=== PATIENT | female | born 1945 | race Caucasian/White ===

== ENCOUNTER 2016-02-20 23:04 | Inpatient (IN) | payer MEDICARE, BC ==
[2016-02-21] MEDS ORDERED: NS 0.9% 1000 ML* 1,000 ML IV ONE (00:06)
--- NOTE | 2016-02-21 00:32 | ED ---
Sidney Farley Erika, scribed for Meño Flores MD on 02/21/16 at 0016 . Complex/Multi-Sys Presentation - HPI Summary HPI Summary: Patient is a 70-year-old female presenting to the ED with a CC of low body temperature today. At 11:30 today, pt had a temperature of 96.2, and family believes it is now lower. They state pt has AMS which worsened this evening. They report that pt dropped a glass of water while trying to set it on the table. Family also reports that pt has had increased urinary frequency today. - History Of Current Complaint Chief Complaint: EDGeneral Time Seen by Provider: 02/21/16 00:00 Hx Obtained From: Patient, Family/Visual C Developer Onset/Duration: Gradual Onset, Lasting Hours, Worse Since Timing: Constant Severity Currently: Moderate Severity Initially: Mild Associated Signs And Symptoms: Positive: Other - Decreased temperature, urinary frequency, AMS - Allergies/Home Medications Allergies/Adverse Reactions: Allergies Allergy/AdvReac Type Severity Reaction Status Date / Time No Known Allergies Allergy Verified 01/28/16 15:11 PMH/Surg Hx/FS Hx/Imm Hx Endocrine/Hematology History: Reports: Hx Anticoagulant Therapy Cardiovascular History: Reports: Hx Hypertension Respiratory History: Reports: Hx Sleep Apnea - home BIPAP GI History: Reports: Other GI Disorders - distended rectum History: Reports: Other Problems/Disorders - urine retention- flomax , NEUROGENIC BLADDER Musculoskeletal History: Reports: Hx Back Problems - cervical neck surgery 2001 , Other Musculoskeletal History - MS Sensory History: Reports: Hx Contacts or Glasses - GLASSES Opthamlomology History: Reports: Hx Contacts or Glasses - GLASSES Neurological History: Reports: Other Neuro Impairments/Disorders - MULTIPLE SCLEROSIS dx 1975 Psychiatric History: Reports: Hx Anxiety, Hx Depression - Cancer History Hx Chemotherapy: No Hx Radiation Therapy: No Hx Palliative Cancer Treatment: No - Surgical History Surgery Procedure, Year, and Place: INGUINAL CYST REPAIR, cervical NECK SURGERY 2001. 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 Denies: Hx Clostridium Difficile, Hx Hepatitis, Hx Human Immunodeficiency Virus (HIV), Hx Shingles, Hx Tuberculosis, History Other Infectious Disease, Traveled Outside the [place] in Last 30 Days - Family History Known Family History: Positive: Cardiac Disease - CHF, CAD, Other - CVA - Social History Lives: With Family Alcohol Use: None Alcohol Amount: 1 drink Hx Substance Use: No Substance Use Type: Reports: None Hx Tobacco Use: No Smoking Status (MU): Never Smoked Tobacco Have You Smoked in the Last Year: No Review of Systems Constitutional: Other - Low body temperature Positive: frequency Neurological: Other - AMS All Other Systems Reviewed And Are Negative: Yes Physical Exam Triage Information Reviewed: Yes Vital Signs On Initial Exam: Initial Vitals Temp Pulse Resp BP Pulse Ox 95.2 F 46 18 109/83 100 02/20/16 23:09 02/20/16 23:09 02/20/16 23:09 02/20/16 23:09 02/20/16 23:09 Vital Signs Reviewed: Yes Appearance: Positive: No Pain Distress, Ill-Appearing Skin: Positive: Cold Head/Face: Positive: Normal Head/Face Inspection Eyes: Positive: ZAIN ENT: Positive: Pharynx normal Neck: Positive: Supple Respiratory/Lung Sounds: Positive: Breath Sounds Present Cardiovascular: Positive: Bradycardia Abdomen Description: Positive: Nontender, Soft Musculoskeletal: Positive: Strength/ROM Intact Neurological: Positive: Alert, Oriented to Person Place, Time Psychiatric: Positive: Affect/Mood Appropriate Diagnostics - Vital Signs Vital Signs Temp Pulse Resp BP Pulse Ox 02/20/16 23:09 95.2 F 46 18 109/83 100 - Laboratory Result Diagrams: 02/21/16 00:10 02/21/16 00:10 Lab Statement: Any lab studies that have been ordered have been reviewed, and results considered in the medical decision making process. - Radiology CXR Xray Interpretation: No Acute Changes Radiology Interpretation Completed By: ED Physician Re-Evaluation - Re-Evaluation First Eval Re-Evaluation Time: 04:34 Comment: Temperature still very low. Will admit Complex Multi-Symp Course/Dx Assessment/Plan: A 70 y/o F presents to the ED with a CC of hypothermia. Perez probe temperature initially noted at 91.0. Pt was placed in a Abner Hugger during the duration of observation, and temperature only parvin to 94.4 degrees rectal. UA reveals UTI, and pt was treated with levaquin. Care discussed with Dr. Kincaid, who will admit the patient for further work up and management. - Diagnoses Provider Diagnoses: UTI (urinary tract infection), Severe sepsis - Physician Notifications Discussed Care Of Patient With: Dr. Kincaid (hospitalist) at 04:33 - agrees to admit Instructed by Provider To: Admit As Inpatient - Critical Care Time Critical Care Time: 30-74 min Discharge - Discharge Plan Condition: Fair Disposition: ADMITTED TO [facility] The documentation as recorded by the Sidney bowles Erika accurately reflects the service I personally performed and the decisions made by me, Meño Flores MD.
[2016-02-21 00:33] LABS: Hematocrit 40 % (35-47); Hemoglobin 13.1 g/dl (12.0-16.0); Mean Corpuscular HGB Conc 33 g/dl (31-36); Mean Corpuscular Hemoglobin 32 pg (27-31); Mean Corpuscular Volume 98 fL (80-97); Mean Platelet Volume 9 um3 (7.4-10.4); Red Blood Count 4.08 10^6/ul (4.0-5.4); Red Cell Distribution Width 17 % (10.5-15); White Blood Count 6.2 10^3/ul (3.5-10.8)
[2016-02-21 00:50] LABS: Albumin 3.6 g/dL (3.2-5.2); BUN/Creatinine Ratio 24.2 (8-20); Calcium 9.6 mg/dL (8.6-10.3); EGFR African American 79.1 (>60); EGFR Non-African American 61.5 (>60); Globulin 3.1 g/dL (2-4); Potassium 4.4 mmol/L (3.5-5.0); Total Bilirubin 0.4 mg/dL (0.2-1.0); Total Protein 6.7 g/dL (6.4-8.9)
[2016-02-21 01:10] LABS: Urine Bacteria 1+ (Absent); Urine Bilirubin Negative (Negative); Urine Glucose Negative (Negative); Urine Nitrite Positive (Negative)
[2016-02-21] MEDS ORDERED: Levofloxacin 500 MG IVPREMIX(* 500 MG/100 ML BAG IVPB ONE (01:20)
[2016-02-21] MEDS ORDERED: Acetaminophen TAB* 325 MG PO PRN (04:56)
[2016-02-21] MEDS ORDERED: Ondansetron INJ* 2 MG/ML VIAL IV PRN (04:56)
[2016-02-21] MEDS ORDERED: Al Hydrox/Mg Hydrox/Simet LIQ* 30 ML UDC PO PRN (04:56)
[2016-02-21 05:29] LABS: TSH (Thyroid Stimulating Horm) 9.49 mcIU/mL (0.34-5.60)
[2016-02-21 05:36] LABS: Free T4 1.02 ng/dL (0.61-1.12)
[2016-02-21 06:44] LABS: C Reactive Protein 4.98 mg/L (< 5.00)
--- NOTE | 2016-02-21 07:23 | RAD ---
INDICATION: Fever COMPARISON: None TECHNIQUE: PA and lateral views of the chest were obtained. FINDINGS: The heart and mediastinum are normal in size and contour. The lungs are grossly clear. There is no evidence of large pleural effusion. Visualized bones are normal for the patient's age. Plate and screw fixator is partially visualized overlying the lower cervical spine. There is no radiographic evidence of free air beneath the diaphragm IMPRESSION: No radiographic evidence of acute cardiopulmonary disease.
--- NOTE | 2016-02-21 08:04 | HP ---
CC: Dr. Ellen Reynolds HISTORY AND PHYSICAL: DATE OF ADMISSION: 02/21/16 TIME OF EVALUATION: 0500. PRIMARY CARE PHYSICIAN: Dr. Ellen Reynolds CHIEF COMPLAINT: Hypothermia. HISTORY OF PRESENT ILLNESS: This is a 70-year-old female with past medical history of multiple sclerosis, recurrent urinary tract infections, atrial fibrillation who was recently discharged on 02/04/16 for pneumonia, now presenting today after [facility]NS came in to evaluate her and noticed that she had a low temperature. They recommended that she come to the emergency room for further evaluation. On arrival, the patient's temp was 95.2. They placed a Perez, and it was low as 91. They started putting her on Abner Huggers and warming her, and gave her a liter of fluid and 500 mg of Levaquin. On my encounter, the patient states that she is not feeling well. She has some right- sided abdominal discomfort, no nausea. She has had some diarrhea. She denies any choking episodes, no trouble breathing. No chest pain. No rash. No sick contacts. No headaches. The patient's history is limited due to her not feeling well at her last limited communication. She is being admitted for evaluation for her low temperature. PAST MEDICAL HISTORY: 1. Multiple sclerosis. 2. Neurogenic bladder. 3. Atrial fibrillation, on anticoagulation. 4. Recurrent urinary tract infections. 5. Obstructive sleep apnea. MEDICATIONS: The patient states they have been unchanged from her discharge on 02/04/16, and her discharge summary states as follows: 1. Ferrous sulfate 325 mg p.o. Friday, Friday, and Friday. 2. Glatiramer 20 mg subcu every evening. 3. Baclofen 45 mg p.o. b.i.d. 4. Hydrocortisone 2.5% cream b.i.d. as needed. 5. Multivitamin with minerals daily. 6. Calcium with vitamin D daily. 7. Ipratropium nasal spray b.i.d. 8. Rivaroxaban 20 mg p.o. daily. 9. Propafenone 150 mg every 8 hours. 10. Miconazole nitrate topical as needed. 11. Nystatin topical b.i.d. p.r.n. 12. Solifenacin 10 mg daily. 13. Atorvastatin 10 mg daily. 14. Clotrimazole with betamethasone b.i.d. as needed. 15. Tylenol suppository 1 g every 6 hours as needed. ALLERGIES: No known drug allergies. FAMILY HISTORY: Father from CHF. Mother from CVA. SOCIAL HISTORY: She lives with her , Shawn, who is her healthcare proxy. Her secondary proxy is her daughter, Gila Forrest. She has visiting nurses come in twice a week. She is wheelchair bound, nonambulatory, and DNR/DNI. REVIEW OF SYSTEMS: Limited, as mentioned in the HPI. PHYSICAL EXAMINATION GENERAL: Some mild discomfort. VITAL SIGNS: Temp low as 91, currently 94.4, pulse rate 54, respiratory rate 14 , oxygen saturation 97% on room air, blood pressure 118/53. HEENT: Face is flushed. Pupils are equal and reactive, anicteric. Head: Normocephalic, no nuchal rigidity. Oropharynx: Mucous membranes slightly dry. No erythema or exudate. RESPIRATORY: Diminished breath sounds. No wheeze, rhonchi, or rales. CARDIAC: Regular rate and rhythm. Soft systolic murmur heard throughout. ABDOMEN: Soft, nontender, nondistended. EXTREMITIES: VICKY stockings in place. Trace pedal edema. +1 DP. NEUROLOGIC: The patient with MS, diffuse weakness, limited mobility, alert and oriented x3. LABORATORY DATA: White count 6.2, hemoglobin 13.1, hematocrit 40, platelets 291. INR 1.44. Sodium 134, potassium 4.4, chloride 100, bicarb 30, BUN 22, creatinine 0.9. Urine shows positive nitrites, leukocytes, squamous cells. Chest x-ray is unremarkable. ASSESSMENT AND PLAN: This is a 70-year-old female with past medical history of multiple sclerosis, neurogenic bladder with recurrent UTIs who presents to the emergency room with a low temperature. 1. Hypothermia. Assessment: The patient has had hypothermia in the past secondary to UTIs. Her urine has been sensitive to ceftriaxone in the past. She does not have a white count. She is also complaining of some diarrhea; as this could be C. diff , also consider influenza. Plan: Admit her, continue on antibiotics; will switch her over to ceftriaxone as more compatible with her antiarrhythmic agent. Continue on IV fluids. Will check a flu swab and C. diff. We will also check a TSH and a cortisol level, and follow up on her cultures. Continue her on IV fluids. We will also check a CRP. 2. Chronic medical problems. Multiple sclerosis. Continue her Glatiramer, Baclofen. 3. Neurogenic bladder. Continue her VESIcare. 4. Atrial fibrillation. Continue propafenone, rivaroxaban. 5. Hyperlipidemia. Continue atorvastatin. 6. FEN. Allow for heart-healthy diet with IV fluids. 7. DVT prophylaxis. She scores high risk. She is on rivaroxaban. 8. Code status. She is a DNR/DNI. MOLST form is here in the emergency room. TIME SPENT: Greater than 30 minutes were spent doing the history and physical, more than half the time spent in direct patient contact. [id number]/CPS #: [id number] SUSAN
[2016-02-21] MEDS ORDERED: Glatiramer(NF) 20 MG/ML 1 ML SYRINGE SUBCUT SCH (09:00)
[2016-02-21] MEDS: Solifenacin(NF) 10 MG TAB PO SCH (09:15)
[2016-02-21] MEDS: Baclofen TAB* 10 MG PO SCH ×2 (09:16→21:07)
[2016-02-21] MEDS: proPAFENone TAB* 150 MG PO SCH ×3 (09:17→22:25)
[2016-02-21] MEDS: Senna TAB PO PRN (09:17)
[2016-02-21] MEDS: Docusate CAP* 100 MG PO PRN (09:17)
[2016-02-21 12:58] LABS: PCO2 Arterial 48 mmHg (35-45)
[2016-02-21] MEDS: Hydrocortisone INJ* 100 MG VIAL IV SCH ×2 (14:35→21:10)
--- NOTE | 2016-02-21 14:51 | PN ---
Subjective Date of Service: 02/21/16 Interval History: Patient seen and examined at bedside. Patient first seen in ED at 1230 and was noted to be lethargic. She required vigorous sternal rubbing in order to get her to open her eyes. ABG, labs drawn. Repeat assessment, patient is still very lethargic. VSS but she is not able to follow simple commands. ED Nurse reports patient was awake this morning and was able to take her medications prior to falling back asleep. notified of patient's condition over phone; he states that she does become more lethargic and less responsive when she has an infection. Family History: Unchanged from Admission Social History: Unchanged from Admission Past Medical History: Unchanged from Admission Objective Active Medications: Acetaminophen (Tylenol Tab*) 650 mg PO Q4H PRN PRN Reason: FEVER/PAIN Al Hydrox/Mg Hydrox/Simethicone (Maalox Plus*) 30 ml PO Q6H PRN PRN Reason: INDIGESTION Atorvastatin Calcium (Lipitor*) 10 mg PO 1700 [facility] Baclofen (Lioresal Tab*) 45 mg PO BID [facility] Last Admin: 02/21/16 09:16 Dose: 45 mg Docusate Sodium (Colace Cap*) 100 mg PO BID PRN PRN Reason: CONSTIPATION Last Admin: 02/21/16 09:17 Dose: 100 mg Glatiramer Acetate (Copaxone(Nf)) 20 mg SUBCUT DAILY [facility] Last Admin: 02/21/16 09:15 Dose: Not Given Hydrocortisone Sodium Succinate (Solu-Cortef*) 50 mg IV Q8H [facility] Last Admin: 02/21/16 14:35 Dose: 50 mg Ceftriaxone Sodium 1,000 mg/ (Sodium Chloride) 50 mls @ 200 mls/hr IVPB Q24H [facility] Sodium Chloride (Ns 0.9% 1000 Ml*) 1,000 mls @ 125 mls/hr IV PER RATE [facility] Ondansetron HCl (Zofran Inj*) 4 mg IV Q4H PRN PRN Reason: NAUSEA/VOMITING Propafenone HCl (Rythmol*) 150 mg PO Q8HR [facility] Last Admin: 02/21/16 09:17 Dose: 150 mg Rivaroxaban (Xarelto (*)) 20 mg PO DAILY [facility] Senna (Senokot Tab*) 1 tab PO BID PRN PRN Reason: CONSTIPATION Last Admin: 02/21/16 09:17 Dose: 1 tab Solifenacin (Vesicare(Nf)) 10 mg PO DAILY [facility] Last Admin: 02/21/16 09:15 Dose: Not Given Vital Signs 02/21/16 02/21/16 02/21/16 05:00 05:30 06:00 Temperature 94.5 F 95.4 F 96.3 F Pulse Rate 72 78 85 Respiratory 17 20 22 Rate Blood Pressure 121/86 118/54 134/55 (mmHg) O2 Sat by Pulse 93 94 91 Oximetry 02/21/16 02/21/16 02/21/16 06:30 07:00 07:30 Temperature 97.9 F 98.1 F 96.6 F Pulse Rate 84 87 Respiratory 18 19 16 Rate Blood Pressure 146/123 118/49 126/55 (mmHg) O2 Sat by Pulse 91 95 Oximetry 02/21/16 02/21/16 02/21/16 08:00 08:30 09:00 Temperature 96.6 F 98.2 F 98.2 F Pulse Rate 92 92 91 Respiratory 17 21 18 Rate Blood Pressure 124/53 133/46 122/55 (mmHg) O2 Sat by Pulse 89 90 89 Oximetry 02/21/16 02/21/16 02/21/16 09:30 10:00 10:30 Temperature 98.1 F 98.2 F 98.4 F Pulse Rate 91 92 90 Respiratory 13 19 22 Rate Blood Pressure 130/51 129/54 109/53 (mmHg) O2 Sat by Pulse 90 90 90 Oximetry 02/21/16 02/21/16 02/21/16 11:00 11:30 12:00 Temperature 98.8 F 98.8 F 99.0 F Pulse Rate 89 91 91 Respiratory 23 17 14 Rate Blood Pressure 130/53 131/48 109/46 (mmHg) O2 Sat by Pulse 90 89 90 Oximetry 02/21/16 02/21/16 12:30 13:00 Temperature 98.6 F 99.1 F Pulse Rate 87 85 Respiratory 20 18 Rate Blood Pressure 112/47 103/42 (mmHg) O2 Sat by Pulse 96 95 Oximetry Oxygen Devices in Use Now: Nasal Cannula Appearance: Female patient, lying in bed, very lethargic, responding to vigorous sternal rubbing only Eyes: PERRLA Ears/Nose/Mouth/Throat: Clear Oropharnyx - mucous membranes dry Neck: NL Appearance and Movements; NL JVP Respiratory: Symmetrical Chest Expansion and Respiratory Effort, Clear to Auscultation - diminished Cardiovascular: RRR - soft murmur noted Abdominal: NL Sounds; No Tenderness; No Distention Extremities: - - mild pedal edema Neurological: - - minimally responsive, PERRLA Lines/Tubes/Other Access: Clean, Dry and Intact Baum, Clean, Dry and Intact Peripheral IV Result Diagrams: 02/21/16 00:10 02/21/16 00:10 Microbiology and Other Data: Microbiology 02/21/16 12:39 Influenza Types A,B Antigen (HALLE) - Final Nasal Specimen received for Influenza A/B Molecular testing Assess/Plan/Problems-Billing Assessment: Ms. Ann is a 70 yo female with a PMH of MS, recent aspiration pneumonia, neurogenic bladder, afib, and HLD who presented to the ED on 02/21/16 with concern for hypothermia and potential infection. - Patient Problems (1) Hypothermia Code(s): T68.XXXA - HYPOTHERMIA, INITIAL ENCOUNTER Comment: Now resolved after gamal hugger and antibiotic therapy. History of hypothermia with infection (usually UTI). (2) Multiple sclerosis Code(s): G35 - MULTIPLE SCLEROSIS Comment: Continue glatiramer and baclofen. (3) UTI (urinary tract infection) Comment: History of neurogenic bladder with self catheterization. UA with positive nitrites, leukocytes. Continue ceftriaxone. (4) Altered mental status Code(s): R41.82 - ALTERED MENTAL STATUS, UNSPECIFIED Comment: Patient with extreme lethargy and slowed mentation; states that this occurs when she has an infection. Check ABG, ammonia, CT brain. Suspect UTI. , who is primary caregiver, states that she has not had any diarrhea and has chronic constipation. C. diff PCR cancelled. Flu swab negative. (5) Neurogenic bladder Code(s): N31.9 - NEUROMUSCULAR DYSFUNCTION OF BLADDER, UNSPECIFIED Comment: Continue Vesicare. At home, patient on BID straight catheterization regimen. Currently has a baum. (6) HLD (hyperlipidemia) Code(s): E78.5 - HYPERLIPIDEMIA, UNSPECIFIED Comment: Continue statin. (7) Obstructive sleep apnea Code(s): G47.33 - OBSTRUCTIVE SLEEP APNEA (ADULT) (PEDIATRIC) Comment: Offer hospital CPAP at night. (8) Atrial fibrillation Code(s): I48.91 - UNSPECIFIED ATRIAL FIBRILLATION Comment: Not currently in atrial fibrillation. Continue propafenone and rivaroxaban. (9) DVT prophylaxis Comment: Continue Xarelto. Status and Disposition: Inpatient admission. Anticipate LOS >2 days.
--- NOTE | 2016-02-21 15:15 | RAD ---
HISTORY: Altered mental status COMPARISONS: June 04, 2013 TECHNIQUE: Multiple contiguous axial CT scans were obtained of the head without intravenous contrast. FINDINGS: HEMORRHAGE/INFARCT: There is no hemorrhage or acute infarct. MASSES/SHIFT: There is no mass or shift. EXTRA-AXIAL SPACES: There are no extra-axial fluid collections. SULCI AND VENTRICLES: The sulci and ventricles are normal in size and position for the patient's stated age. CEREBRUM: There is hypoattenuation of the periventricular and subcortical white matter. BRAINSTEM: There are no focal parenchymal abnormalities. CEREBELLUM: There are no focal parenchymal abnormalities. VESSELS: The vessels are grossly normal. PARANASAL SINUSES: The paranasal sinuses are clear. ORBITS: The orbits are unremarkable. BONES AND SOFT TISSUE: No bone or soft tissue abnormalities are noted. OTHER: None IMPRESSION: NO ACUTE INTRACRANIAL PATHOLOGY. CHRONIC SMALL VESSEL ISCHEMIC CHANGES.
[2016-02-21] MEDS ORDERED: Gadoteridol* (CONTRAST) 279.3 MG/ML 10 ML IV ONE (18:06)
[2016-02-21] MEDS: NS 0.9% 1000 ML* 1,000 ML IV SCH (18:42)
[2016-02-21] MEDS: Atorvastatin* 10 MG TAB PO SCH (18:43)
--- NOTE | 2016-02-21 19:22 | PN ---
Hospitalist Progress Note Patient now with improved mentation. She was able to tell me where she was and that she wanted water. Per nursing, patient passed bedside swallow screen. Continue to monitor.
[2016-02-21] MEDS: cefTRIAXone VIAL(*) 1,000 MG in NS 0.9% 50 ML* 50 ML IVPB SCH (21:07)
[2016-02-21] MEDS: Rivaroxaban TAB(*) 20 MG TAB PO SCH (22:26)
[2016-02-22] MEDS: NS 0.9% 1000 ML* 1,000 ML IV SCH ×2 (03:35→13:35)
[2016-02-22] MEDS: Hydrocortisone INJ* 100 MG VIAL IV SCH ×3 (05:01→20:41)
[2016-02-22] MEDS: proPAFENone TAB* 150 MG PO SCH ×3 (05:36→21:54)
[2016-02-22 06:46] LABS: Hematocrit 37 % (35-47); Hemoglobin 12.3 g/dl (12.0-16.0); Mean Corpuscular HGB Conc 33 g/dl (31-36); Mean Corpuscular Hemoglobin 33 pg (27-31); Mean Corpuscular Volume 99 fL (80-97); Mean Platelet Volume 9 um3 (7.4-10.4); Red Blood Count 3.78 10^6/ul (4.0-5.4); Red Cell Distribution Width 17 % (10.5-15); White Blood Count 7.1 10^3/ul (3.5-10.8)
[2016-02-22 07:01] LABS: BUN/Creatinine Ratio 16.9 (8-20); Calcium 8.6 mg/dL (8.6-10.3); EGFR African American 87.9 (>60); EGFR Non-African American 68.4 (>60); Potassium 3.9 mmol/L (3.5-5.0)
--- NOTE | 2016-02-22 07:41 | RAD ---
HISTORY: History of multiple sclerosis,, altered mental status COMPARISONS: None TECHNIQUE: The following sequences were obtained of the head: Sagittal FLAIR images, axial T2-weighted images, axial FLAIR images, axial susceptibility weighted images, axial T1-weighted images. Additionally, axial diffusion-weighted images were obtained with calculated apparent diffusion coefficients. Additionally, sagittal, coronal, and axial T1-weighted images were obtained after contrast enhancement with a gadolinium-based intravenous contrast agent. FINDINGS: HEMORRHAGE/INFARCT: There is no hemorrhage or acute infarct. MASSES/SHIFT: There is no mass or shift. EXTRA-AXIAL SPACES/MENINGES: There are no extra-axial fluid collections. SULCI AND VENTRICLES: The sulci and ventricles are normal in size and position for the patient's stated age. CEREBRUM: There is diffuse multifocal and confluent elevated T2/FLAIR signal in the periventricular and subcortical white matter, with scattered areas of associated decreased T1 signal. Direct comparison is limited due to the number of lesions; however, there has been no significant change when compared to June 04, 2013 BRAINSTEM: There is a lesion of the left cerebral peduncle on axial image 12. This can be identified in retrospect on the previous examination and is stable. There are smaller scattered lesions of the pontomedullary junction. CEREBELLUM: There are scattered small foci of elevated T2/FLAIR signal within the cerebellar hemispheres. The cerebellar tonsils are normal in size and position. SELLA: The sella is normal. PINEAL: The pineal region is clear. CP ANGLE/TEMPORAL BONES: The labyrinthine structures are grossly normal. There is fluid within the middle ear cavities bilaterally. VESSELS: Normal flow-voids are noted within the visualized vertebral vasculature. DIFFUSION ABNORMALITIES: There are no diffusion abnormalities. PARANASAL SINUSES/MASTOIDS: The paranasal sinuses are clear. There are large bilateral mastoid effusions. ORBITS: The orbits are unremarkable. BONES AND SOFT TISSUE: No bone or soft tissue abnormalities are noted. OTHER: None IMPRESSION: 1. MULTIPLE WHITE MATTER LESIONS MOST CONSISTENT WITH DEMYELINATING PLAQUE GIVEN THE HISTORY OF MULTIPLE SCLEROSIS, STABLE FROM JUNE 04, 2013. 2. BILATERAL OTITIS/MASTOIDITIS
[2016-02-22] MEDS: Baclofen TAB* 10 MG PO SCH ×2 (09:41→20:41)
[2016-02-22] MEDS: CMC:Solifenacin(NF) 5 MG TAB PO SCH (09:42)
[2016-02-22] MEDS: Rivaroxaban TAB(*) 20 MG TAB PO SCH (09:42)
[2016-02-22] MEDS: GLATIRAMER 20 MG/ML SUBCUT SCH (09:42)
[2016-02-22] MEDS: Atorvastatin* 10 MG TAB PO SCH (17:19)
--- NOTE | 2016-02-22 19:05 | PN ---
Subjective Date of Service: 02/22/16 Interval History: Patient seen and examined at bedside. Patient in room with . She opens her eyes and is able to answer simple questions. She responds "No" when asked if she has CP, SOB, n/v. She reports mild pain in low abdomen. She denies ear pain; her reports hearing loss in recent months. Family History: Unchanged from Admission Social History: Unchanged from Admission Past Medical History: Unchanged from Admission Objective Active Medications: Acetaminophen (Tylenol Tab*) 650 mg PO Q4H PRN PRN Reason: FEVER/PAIN Al Hydrox/Mg Hydrox/Simethicone (Maalox Plus*) 30 ml PO Q6H PRN PRN Reason: INDIGESTION Atorvastatin Calcium (Lipitor*) 10 mg PO 1700 [facility] Last Admin: 02/22/16 17:19 Dose: 10 mg Baclofen (Lioresal Tab*) 45 mg PO BID [facility] Last Admin: 02/22/16 09:41 Dose: 45 mg Docusate Sodium (Colace Cap*) 100 mg PO BID PRN PRN Reason: CONSTIPATION Last Admin: 02/21/16 09:17 Dose: 100 mg Glatiramer Acetate (Copaxone(Nf)) 20 mg SUBCUT DAILY [facility] Last Admin: 02/22/16 09:42 Dose: 20 mg Hydrocortisone Sodium Succinate (Solu-Cortef*) 50 mg IV Q8H [facility] Last Admin: 02/22/16 13:36 Dose: 50 mg Ceftriaxone Sodium 1,000 mg/ (Sodium Chloride) 50 mls @ 200 mls/hr IVPB Q24H [facility] Last Admin: 02/21/16 21:07 Dose: 200 mls/hr Sodium Chloride (Ns 0.9% 1000 Ml*) 1,000 mls @ 125 mls/hr IV PER RATE [facility] Last Admin: 02/22/16 13:35 Dose: 125 mls/hr Ondansetron HCl (Zofran Inj*) 4 mg IV Q4H PRN PRN Reason: NAUSEA/VOMITING Propafenone HCl (Rythmol*) 150 mg PO Q8HR [facility] Last Admin: 02/22/16 13:37 Dose: 150 mg Rivaroxaban (Xarelto (*)) 20 mg PO DAILY [facility] Last Admin: 02/22/16 09:42 Dose: 20 mg Senna (Senokot Tab*) 1 tab PO BID PRN PRN Reason: CONSTIPATION Last Admin: 02/21/16 09:17 Dose: 1 tab Solifenacin (Vesicare(Nf)) 10 mg PO DAILY [facility] Last Admin: 02/22/16 09:42 Dose: Not Given Vital Signs 02/21/16 02/21/16 02/21/16 19:42 20:00 23:16 Temperature 97.5 F 97.4 F Pulse Rate 86 72 Respiratory 16 16 18 Rate Blood Pressure 115/52 151/71 (mmHg) O2 Sat by Pulse 98 98 100 Oximetry 02/22/16 02/22/16 02/22/16 03:50 07:15 08:00 Temperature 97.2 F 97.4 F Pulse Rate 79 77 Respiratory 16 16 16 Rate Blood Pressure 169/63 174/64 (mmHg) O2 Sat by Pulse 99 98 98 Oximetry 02/22/16 15:10 Temperature 97.5 F Pulse Rate 83 Respiratory 19 Rate Blood Pressure 129/62 (mmHg) O2 Sat by Pulse 98 Oximetry Oxygen Devices in Use Now: Nasal Cannula Appearance: Female patient, flushed, sitting up in bed, in NAD Eyes: PERRLA Ears/Nose/Mouth/Throat: - - right ear non erythmatous, limited view due to soft wax, left ear with effusion, non erythmatous and does not appear infected Respiratory: Symmetrical Chest Expansion and Respiratory Effort, Clear to Auscultation Cardiovascular: NL Sounds; No Murmurs; No JVD, RRR Abdominal: NL Sounds; No Tenderness; No Distention Extremities: No Clubbing, Cyanosis - mild pedal edema Neurological: - - drowsy but arousable Lines/Tubes/Other Access: Clean, Dry and Intact Baum, Clean, Dry and Intact Peripheral IV Nutrition: Taking PO's Result Diagrams: 02/22/16 06:25 02/22/16 06:25 Microbiology and Other Data: Microbiology 02/21/16 12:39 Influenza Types A,B Antigen (HALLE) - Final Nasal Specimen received for Influenza A/B Molecular testing Assess/Plan/Problems-Billing Assessment: Ms. Ann is a 70 yo female with a PMH of MS, recent aspiration pneumonia, neurogenic bladder, afib, and HLD who presented to the ED on 02/21/16 with concern for hypothermia and potential infection. - Patient Problems (1) UTI (urinary tract infection) Comment: History of neurogenic bladder with self catheterization. UA with positive nitrites, leukocytes. Continue ceftriaxone. Preliminary urine culture shows C. freundii. (2) Multiple sclerosis Code(s): G35 - MULTIPLE SCLEROSIS Comment: Continue glatiramer and baclofen. (3) Hypothermia Code(s): T68.XXXA - HYPOTHERMIA, INITIAL ENCOUNTER Comment: Now resolved after gamal hugger and antibiotic therapy. History of hypothermia with infection (usually UTI). (4) Altered mental status Code(s): R41.82 - ALTERED MENTAL STATUS, UNSPECIFIED Comment: Improved. PT consult. Patient's feels she is looking closer to her baseline. (5) Neurogenic bladder Code(s): N31.9 - NEUROMUSCULAR DYSFUNCTION OF BLADDER, UNSPECIFIED Comment: Continue Vesicare. At home, patient on BID straight catheterization regimen. Currently has a baum. (6) HLD (hyperlipidemia) Code(s): E78.5 - HYPERLIPIDEMIA, UNSPECIFIED Comment: Continue statin. (7) Obstructive sleep apnea Code(s): G47.33 - OBSTRUCTIVE SLEEP APNEA (ADULT) (PEDIATRIC) Comment: Offer hospital CPAP at night. (8) Atrial fibrillation Code(s): I48.91 - UNSPECIFIED ATRIAL FIBRILLATION Comment: Not currently in atrial fibrillation. Continue propafenone and rivaroxaban. (9) DVT prophylaxis Comment: Continue Xarelto. Status and Disposition: Inpatient admission. Anticipate LOS >2 days.
[2016-02-22] MEDS: Solifenacin(NF) 10 MG TAB PO SCH (19:17)
[2016-02-22] MEDS: cefTRIAXone VIAL(*) 1,000 MG in NS 0.9% 50 ML* 50 ML IVPB SCH (20:40)
[2016-02-23] MEDS: Docusate CAP* 100 MG PO PRN (01:01)
[2016-02-23] MEDS: Senna TAB PO PRN (01:01)
[2016-02-23] MEDS: Hydrocortisone INJ* 100 MG VIAL IV SCH ×2 (04:52→14:01)
[2016-02-23] MEDS: proPAFENone TAB* 150 MG PO SCH ×3 (05:10→21:16)
[2016-02-23] MEDS: NS 0.9% 1000 ML* 1,000 ML IV SCH ×2 (07:17→16:34)
[2016-02-23] MEDS: Baclofen TAB* 10 MG PO SCH ×2 (07:50→21:16)
[2016-02-23] MEDS: Rivaroxaban TAB(*) 20 MG TAB PO SCH (07:51)
[2016-02-23] MEDS: CMC:Solifenacin(NF) 5 MG TAB PO SCH (07:51)
[2016-02-23] MEDS: GLATIRAMER 20 MG/ML SUBCUT SCH (07:51)
[2016-02-23] MEDS: Nitrofurantoin Macrocrystals* 100 MG CAP PO SCH ×2 (09:45→21:15)
--- NOTE | 2016-02-23 12:27 | PN ---
Subjective Date of Service: 02/23/16 Interval History: Patient seen and examined at bedside. She is drinking OJ. She denies pain, CP, SOB, abd pain, n/v. She is more alert. Her is in the room and states that she is almost at baseline and feels like he could maybe take her home tomorrow. Family History: Unchanged from Admission Social History: Unchanged from Admission Past Medical History: Unchanged from Admission Objective Active Medications: Acetaminophen (Tylenol Tab*) 650 mg PO Q4H PRN PRN Reason: FEVER/PAIN Al Hydrox/Mg Hydrox/Simethicone (Maalox Plus*) 30 ml PO Q6H PRN PRN Reason: INDIGESTION Atorvastatin Calcium (Lipitor*) 10 mg PO 1700 [facility] Last Admin: 02/22/16 17:19 Dose: 10 mg Baclofen (Lioresal Tab*) 45 mg PO BID [facility] Last Admin: 02/23/16 07:50 Dose: 45 mg Docusate Sodium (Colace Cap*) 100 mg PO BID PRN PRN Reason: CONSTIPATION Last Admin: 02/23/16 01:01 Dose: 100 mg Glatiramer Acetate (Copaxone(Nf)) 20 mg SUBCUT DAILY [facility] Last Admin: 02/23/16 07:51 Dose: 20 mg Hydrocortisone Sodium Succinate (Solu-Cortef*) 50 mg IV Q8H [facility] Last Admin: 02/23/16 04:52 Dose: 50 mg Sodium Chloride (Ns 0.9% 1000 Ml*) 1,000 mls @ 125 mls/hr IV PER RATE [facility] Last Admin: 02/23/16 07:17 Dose: 125 mls/hr Nitrofurantoin Macrocrystals (Macrodantin*) 100 mg PO BID [facility] Last Admin: 02/23/16 09:45 Dose: 100 mg Ondansetron HCl (Zofran Inj*) 4 mg IV Q4H PRN PRN Reason: NAUSEA/VOMITING Propafenone HCl (Rythmol*) 150 mg PO Q8HR [facility] Last Admin: 02/23/16 05:10 Dose: 150 mg Rivaroxaban (Xarelto (*)) 20 mg PO DAILY [facility] Last Admin: 02/23/16 07:51 Dose: 20 mg Senna (Senokot Tab*) 1 tab PO BID PRN PRN Reason: CONSTIPATION Last Admin: 02/23/16 01:01 Dose: 1 tab Solifenacin (Vesicare(Nf)) 10 mg PO DAILY [facility] Last Admin: 02/23/16 07:51 Dose: 10 mg Vital Signs 02/22/16 02/22/16 02/22/16 15:10 20:00 23:45 Temperature 97.5 F 97.7 F 97.7 F Pulse Rate 83 91 Respiratory 19 18 16 Rate Blood Pressure 129/62 173/97 (mmHg) O2 Sat by Pulse 98 94 Oximetry 02/23/16 02/23/16 02/23/16 00:55 07:55 07:57 Temperature 97.7 F Pulse Rate 96 Respiratory 16 16 Rate Blood Pressure 173/75 173/89 (mmHg) O2 Sat by Pulse 98 Oximetry Oxygen Devices in Use Now: Nasal Cannula Appearance: Female patient, sitting up in bed, in NAD Eyes: PERRLA Ears/Nose/Mouth/Throat: Clear Oropharnyx, Mucous Membranes Moist Neck: NL Appearance and Movements; NL JVP Respiratory: Symmetrical Chest Expansion and Respiratory Effort, Clear to Auscultation Cardiovascular: RRR Abdominal: NL Sounds; No Tenderness; No Distention Extremities: No Clubbing, Cyanosis Skin: No Rash or Ulcers Neurological: - - alert, oriented to self, place, mildly disoriented to time Lines/Tubes/Other Access: Clean, Dry and Intact Peripheral IV Nutrition: Taking PO's Result Diagrams: 02/22/16 06:25 02/22/16 06:25 Microbiology and Other Data: Microbiology 02/21/16 12:39 Influenza Types A,B Antigen (HALLE) - Final Nasal Specimen received for Influenza A/B Molecular testing Assess/Plan/Problems-Billing Assessment: Ms. Ann is a 70 yo female with a PMH of MS, recent aspiration pneumonia, neurogenic bladder, afib, and HLD who presented to the ED on 02/21/16 with concern for hypothermia and potential infection. - Patient Problems (1) UTI (urinary tract infection) Comment: History of neurogenic bladder with self catheterization. UA with positive nitrites, leukocytes. Urine culture shows C. freundii with resistance to ceftriaxone. Stop ceftriaxone and start macrodantin for 7 day course. (2) Multiple sclerosis Code(s): G35 - MULTIPLE SCLEROSIS Comment: Continue glatiramer and baclofen. (3) Hypothermia Code(s): T68.XXXA - HYPOTHERMIA, INITIAL ENCOUNTER Comment: Now resolved after gamal hugger and antibiotic therapy. History of hypothermia with infection (usually UTI). Question of adrenal insufficiency; patient started on hydrocortisone due to unresponsiveness and has now been switched to prednisone. I discussed this with the and recommended he follow-up with his PCP and endocrine for further evaluation. He states that she was previously on weekly then monthly steroid infusions but was discontinued. (4) Altered mental status Code(s): R41.82 - ALTERED MENTAL STATUS, UNSPECIFIED Comment: Improved. PT consult. Patient's feels she is looking closer to her baseline. (5) Neurogenic bladder Code(s): N31.9 - NEUROMUSCULAR DYSFUNCTION OF BLADDER, UNSPECIFIED Comment: Continue Vesicare. At home, patient on BID straight catheterization regimen. Currently has a baum. Question of keeping the baum vs straight catheterization ; states that when she had the baum, she had multiple septic episodes. He also admits that he has difficulty with visualization when performing catheterization. At this point, he would like to keep providing straight catheterization; I did advise him of the importance of trying to maintain an aseptic/clean technique at home. (6) HLD (hyperlipidemia) Code(s): E78.5 - HYPERLIPIDEMIA, UNSPECIFIED Comment: Continue statin. (7) Obstructive sleep apnea Code(s): G47.33 - OBSTRUCTIVE SLEEP APNEA (ADULT) (PEDIATRIC) Comment: Offer hospital CPAP at night. (8) Atrial fibrillation Code(s): I48.91 - UNSPECIFIED ATRIAL FIBRILLATION Comment: Not currently in atrial fibrillation. Continue propafenone and rivaroxaban. (9) DVT prophylaxis Comment: Continue Xarelto. Status and Disposition: Inpatient admission. Potential for d/c to home tomorrow.
[2016-02-23] MEDS: Atorvastatin* 10 MG TAB PO SCH (16:34)
[2016-02-24] MEDS: NS 0.9% 1000 ML* 1,000 ML IV SCH (04:01)
[2016-02-24] MEDS: proPAFENone TAB* 150 MG PO SCH (05:58)
[2016-02-24 08:14] VITALS: BP 132/57
[2016-02-24] MEDS ORDERED: Ciprofloxacin TAB* 500 MG PO SCH (09:00)
[2016-02-24] MEDS ORDERED: predniSONE TAB* 20 MG PO SCH (09:00)
[2016-02-24] MEDS: Baclofen TAB* 10 MG PO SCH (09:28)
[2016-02-24] MEDS: Rivaroxaban TAB(*) 20 MG TAB PO SCH (09:29)
[2016-02-24] MEDS: CMC:Solifenacin(NF) 5 MG TAB PO SCH (09:29)
[2016-02-24] MEDS: GLATIRAMER 20 MG/ML SUBCUT SCH (09:30)
--- NOTE | 2016-02-24 23:51 | DS ---
DISCHARGE SUMMARY: DATE OF ADMISSION: 02/21/16 DATE OF DISCHARGE: 02/24/16 PRIMARY CARE PROVIDER: Ellen Reynolds MD DISCHARGING PROVIDER: ELEANOR Fair SUPERVISING PHYSICIAN: Mallika Dubon DO * (DICTATED BY ELEANOR FAIR) PRIMARY DISCHARGE DIAGNOSES: 1. Hypothermia. 2. Altered mental status. 3. Urinary tract infection. 4. Suspected adrenal insufficiency - discharged on 20 mg of prednisone daily. 5. Elevated TSH with normal free T4 - requires repeat TSH in 4 to 6 weeks. SECONDARY DISCHARGE DIAGNOSES: 1. Multiple sclerosis. 2. Neurogenic bladder requiring straight catheterization at home by her . 3. Paroxysmal atrial fibrillation, chronically anticoagulated with Xarelto - remained in sinus rhythm during her hospital stay. 4. Obstructive sleep apnea. 5. History of recurrent urinary tract infections. DISCHARGE MEDICATIONS: 1. Acetaminophen suppository 650 mg per rectum q.6 hours p.r.n. fever or headache. 2. Lipitor 10 mg p.o. daily. 3. Baclofen 45 mg p.o. twice daily. 4. Calcium carbonate 1 tablet p.o. daily. 5. Cipro 500 mg p.o. b.i.d. x5 days. 6. Clotrimazole/betamethasone cream with instructions to apply topically twice daily as needed for rash. 7. Ferrous sulfate 325 mg p.o. on Friday, Friday, and Friday. 8. Copaxone 20 mg subcu each evening. 9. Hydrocortisone 2.5% cream with instructions to apply topically twice daily as needed for rash. 10. Ipratropium nasal spray 0.03% with instructions to take one spray in both nares twice daily. 11. Miconazole 2% powder with instructions to apply topically daily as needed for rash. 12. Multivitamin 1 tablet p.o. daily. 13. Xarelto 20 mg p.o. daily. 14. VESIcare 10 mg p.o. daily. 15. Prednisone 20 mg p.o. daily. 16. Rythmol 150 mg p.o. q.8 hours. MEDICATION CHANGES: 1. Cipro x5 days. 2. Prednisone 20 mg daily. HOSPITAL IMAGIN. Chest x-ray is read as no radiographic evidence of acute cardiopulmonary disease. 2. CT of the brain is read as no acute intracranial pathology, demonstrated some chronic small vessel ischemic changes. 3. MRI of the brain is read as multiple white matter lesions most consistent with demyelinating plaque given the history of multiple sclerosis noted as stable since last exam, 06/04/13. HOSPITAL COURSE: This is a 70-year-old female with a history of multiple sclerosis who requires a wheelchair at baseline as well as atrial fibrillation, is on an antiarrhythmic and anticoagulated with Xarelto, who presented with altered mental status and hypothermia. The patient's lowest temperature reached 91 degrees Fahrenheit. She did require Abner Hugger for warming initially. The patient was noted to be quite somnolent and did not respond even to sternal rub upon initial presentation. Urinalysis was suggestive of a urinary tract infection with leuk esterase and white blood cells positive as well as positive for nitrates. The patient had no leukocytosis at the time of presentation, however. Based on prior micro, the patient was empirically treated with ceftriaxone for suspected urinary tract infection. Micro eventually grew Citrobacter, which was resistant to ceftriaxone. Good sensitivities to fluoroquinolones. Decision to discharge on Cipro based on HALLE , avoid Levaquin for QT prolongation and combination with Rythmol. The patient's mental status improved throughout her hospital stay. She does have lethargy and weakness at baseline presumably related to her multiple sclerosis. The patient's mental status returned to her baseline, however, per the patient and her . She was noted to be quite bright and smiling and consuming her entire breakfast the morning of discharge. With her presentation of hypothermia and significant somnolence, the question of adrenal insufficiency was brought up. The patient was empirically started on steroids, which seemed to have a positive effect. Cortisol was added to her initial labs, which were completed at midnight and it was 7.6 at that time which is difficult to interpret based on the timing. She had no electrolyte abnormalities and was not noted to be profoundly hypotensive. TSH was noted to be elevated at 9.49, last measured at 15.6 on 01/28/16. Free T4, however, was normal at 1. The patient will be empirically continued on oral prednisone at the time of discharge due to concern for possible adrenal insufficiency and frequent admissions for acute infection relating presenting with hypothermia and somnolence. At the time of discharge, cortisol was added to morning labs from 02/22/16, which is prior to initiation of steroid therapy and this is pending at the time of discharge. DISPOSITION AND FOLLOWUP PLAN: The patient is being discharged to home, where she lives with her . She has returned to her baseline functional status , which requires a wheelchair. The patient's Perez catheter is being removed and the patient's will continue with twice daily straight catheterizations. Sterile technique was reviewed during the time of her hospital stay. From discussion with her , it sounds like she had more frequent urinary tract infections with prior indwelling Perez than she has had with serial straight catheterizations. There is a lingering question of possible adrenal insufficiency at the time of discharge and she is being empirically discharged with oral prednisone. She does require endocrine followup and referral was made to Dr. Dale Cortez. The patient requires additional 5 days of ciprofloxacin for continued treatment of her urinary tract infection. TSH is also noted to be elevated but with a normal free T4, so levothyroxine was not initiated. We would recommend repeating TSH and free T4 in approximately 4 to 6 weeks. No changes as a result concerning her diagnosis of multiple sclerosis during her hospital stay. ELEANOR FAIR CC: Ellen Reynolds MD; Dale Cortez MD * [id number]/[facility] #: [id number] MTDD
== END 2016-02-24 14:00 | disposition home or self-care (01) | DRG 690 ==
LOC: ED 23:04 → EDHOLD 02-21 04:56 → MED 02-21 13:10
PROVIDERS: ADMIT Pediatrics; ATTEND Hospitalist
DX: N39.0 Urinary tract infection, site not specified (principal); E27.40 Unspecified adrenocortical insufficiency; G35 Multiple sclerosis; I48.0 Paroxysmal atrial fibrillation; B96.89 Other specified bacterial agents as the cause of diseases classified elsewhere; N31.9 Neuromuscular dysfunction of bladder, unspecified; E78.5 Hyperlipidemia, unspecified; R68.0 Hypothermia, not associated with low environmental temperature; G47.33 Obstructive sleep apnea (adult) (pediatric); Z79.01 Long term (current) use of anticoagulants; Z79.1 Long term (current) use of non-steroidal anti-inflammatories (NSAID); Z79.899 Other long term (current) drug therapy; Z82.49 Family history of ischemic heart disease and other diseases of the circulatory system; Z16.39 Resistance to other specified antimicrobial drug; Z82.3 Family history of stroke; Z66 Do not resuscitate
CPT/HCPCS: 36415; 36600; 70450; 70553; 71020; 80048; 80053; 81003; 81015; 82140; 82533; 82803; 83605; 84439; 84443; 85025; 85610; 85730; 86140; 87040; 87077; 87086; 87186; 87502; 94760; 99285; A9270-GY; A9579; J0696; J1720; J1956; J7512

== ENCOUNTER 2016-02-29 11:03 | Inpatient (IN) | payer MEDICARE, BC ==
[2016-02-29] MEDS: NS 0.9% 1000 ML* 3,000 ML IV ONE ×2 (12:25→15:42)
[2016-02-29 12:28] LABS: Hematocrit 40 % (35-47); Hemoglobin 13.3 g/dl (12.0-16.0); Mean Corpuscular HGB Conc 33 g/dl (31-36); Mean Corpuscular Hemoglobin 32 pg (27-31); Mean Corpuscular Volume 98 fL (80-97); Mean Platelet Volume 9 um3 (7.4-10.4); Red Blood Count 4.13 10^6/ul (4.0-5.4); Red Cell Distribution Width 17 % (10.5-15)
[2016-02-29 12:28] LABS: Urine Bilirubin Negative (Negative); Urine Glucose Negative (Negative); Urine Nitrite Negative (Negative)
[2016-02-29 12:38] LABS: Albumin 3.4 g/dL (3.2-5.2); BUN/Creatinine Ratio 25.8 (8-20); Calcium 9.1 mg/dL (8.6-10.3); EGFR African American 77.1 (>60); Potassium 3.5 mmol/L (3.5-5.0); Total Bilirubin 0.7 mg/dL (0.2-1.0); Total Protein 6.4 g/dL (6.4-8.9)
--- NOTE | 2016-02-29 12:51 | RAD ---
INDICATION: Aspiration pneumonia COMPARISON: February 21, 2016 TECHNIQUE: An AP portable view obtained at 1312 hours is submitted. FINDINGS: Bones/Soft Tissues: There are no acute bony findings. Cardiomediastinal: The cardiomediastinal silhouette is normal. Lungs: There are no infiltrates. Pleura: There are no pleural effusions. Other: None IMPRESSION: NO ACTIVE DISEASE.
[2016-02-29 12:55] LABS: Benzodiazepine Urine Screen None Detected (None Detect)
[2016-02-29 13:24] LABS: TSH (Thyroid Stimulating Horm) 6.67 mcIU/mL (0.34-5.60)
--- NOTE | 2016-02-29 15:05 | ED ---
Rupert Farley Benjamin, scribed for Evens Treviño MD on 02/29/16 at 1209 . Altered Mental Status - HPI Summary HPI Summary: 70yo female BIB EMS for AMS this morning. Per , Pt was hearing people and calling out and hearing people last night. This morning, pt was less alert but now more alert than initially. Pt has hx of MS. Pt denies TAYLOR, visual problems, but reports fatigue. Pt didnt eat anything today. - History Of Current Complaint Chief Complaint: EDAltMentalStatus Stated Complaint: AMS Time Seen by Provider: 02/29/16 11:16 Hx Obtained From: Patient, Family/General Doc - Onset/Duration: Still Present - mildly still present, Gradually Timing: Constant, Lasting Minutes Severity Initially: Moderate Severity Currently: Mild Character: Confusion, Responsiveness - less Aggravating Factor(s): Nothing Alleviating Factor(s): Nothing Associated Signs And Symptoms: Positive: Weakness - Allergies/Home Medications Allergies/Adverse Reactions: Allergies Allergy/AdvReac Type Severity Reaction Status Date / Time No Known Allergies Allergy Verified 01/28/16 15:11 Home Medications: Home Medications Ciprofloxacin TAB* [Cipro Tab*] 500 mg PO BID 02/29/16 [History Confirmed ] PMH/Surg Hx/FS Hx/Imm Hx Endocrine/Hematology History: Reports: Hx Anticoagulant Therapy Denies: Hx Blood Disorders, Hx Blood Transfusions, Hx Bone Marrow Disease, Hx Diabetes, Hx Systemic Lupus Erythematosus, Hx Sickle Cell Disease, Hx Thyroid Disease, Hx Anemia, Hx Unexplained Bleeding, Other Endocrine/ Hematological Disorders Cardiovascular History: Reports: Hx Hypertension, Other Cardiovascular Problems/ Disorders - A fib Denies: Hx Aneurysm, Hx Angina, Hx Angioplasty, Hx Auto Implanted Cardiovert Defib, Hx Cardiac Arrest, Hx Cardiomegaly, Hx Congenital Heart Disease, Hx Congestive Heart Failure, Hx Coronary Artery Disease, Hx Deep Vein Thrombosis, Hx Embolism, Hx Hypercholesterolemia, Hx Hypotension, Hx Myocardial Infarction, Hx Pacemaker/ICD, Hx Peripheral Vascular Disease, Hx Rheumatic Fever, Hx Syncope , Hx Valvular Heart Disease Respiratory History: Reports: Hx Sleep Apnea - home BIPAP Denies: Hx Asthma, Hx Chronic Bronchitis, Hx Chronic Obstructive Pulmonary Disease (COPD), Hx Cystic Fibrosis, Hx Lung Cancer, Hx Pleural Effusion, Hx Pneumonia, Hx Pulmonary Edema, Hx Pulmonary Embolism, Hx Seasonal Allergies GI History: Reports: Other GI Disorders - distended rectum History: Reports: Other Problems/Disorders - urine retention- flomax , NEUROGENIC BLADDER Denies: Hx Acute Renal Failure, Hx Benign Prostatic Hyperplasia, Hx Chronic Renal Failure, Hx Dialysis, Hx Kidney Infection, Hx Kidney Stones Musculoskeletal History: Reports: Hx Back Problems - cervical neck surgery 2001 , Other Musculoskeletal History - MS Denies: Hx Arthritis, Hx Bursitis, Hx Congenital Bone Abnormalities, Hx Fibromyalgia, Hx Gout, Hx Orthopedic Injury, Hx Osteoporosis, Hx Scoliosis, Hx Tendonitis Sensory History: Reports: Hx Contacts or Glasses Denies: Hx Cataracts, Hx Eye Injury, Hx Eye Prosthesis, Hx Glaucoma, Hx Legally Blind, Hx Macular Degeneration, Hx Vision Problem, Hx Hearing Aid, Other Sensory Impairments Opthamlomology History: Reports: Hx Contacts or Glasses Denies: Hx Cataracts, Hx Eye Injury, Hx Eye Prosthesis, Hx Glaucoma, Hx Legally Blind, Hx Macular Degeneration, Hx Vision Problem, Other Sensory Impairments Neurological History: Reports: Other Neuro Impairments/Disorders - MULTIPLE SCLEROSIS dx 1975 Denies: Hx Dementia, Hx Developmental Delay, Hx Headaches, Hx Migraine, Hx Nerve Disease, Hx Seizures, Hx Spinal Cord Injury, Hx Transient Ischemic Attacks (TIA) Psychiatric History: Reports: Hx Anxiety, Hx Depression Denies: Hx Attention Deficit Hyperactivity Disorder, Hx Eating Disorder, Hx Panic Disorder, Hx Post Traumatic Stress Disorder, Hx Inpatient Treatment, Hx Community Mental Health Tx, Hx Schizophrenia, Hx Bipolar Disorder, Hx Suicide Attempt, Hx of Violent Episodes Against Others, Hx Substance Abuse, Other Psychiatric Issues/Disorders - Cancer History Hx Chemotherapy: No Hx Radiation Therapy: No Hx Palliative Cancer Treatment: No - Surgical History Surgery Procedure, Year, and Place: INGUINAL CYST REPAIR, cervical NECK SURGERY 2001. 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 Denies: Hx Clostridium Difficile, Hx Hepatitis, Hx Human Immunodeficiency Virus (HIV), Hx of Known/Suspected MRSA, Hx Shingles, Hx Tuberculosis, History Other Infectious Disease, Traveled Outside the [place] in Last 30 Days - Family History Known Family History: Positive: Cardiac Disease - CHF, CAD, Other - CVA Family History: Positive for CVA, CHF, and CAD - Social History Occupation: Disabled Lives: With Family Alcohol Use: None Alcohol Amount: 1 drink Hx Substance Use: No Substance Use Type: Reports: None Hx Tobacco Use: No Smoking Status (MU): Never Smoked Tobacco Have You Smoked in the Last Year: No Review of Systems Constitutional: Negative Eyes: Negative ENT: Negative Cardiovascular: Negative Respiratory: Negative Gastrointestinal: Negative Genitourinary: Negative Musculoskeletal: Negative Skin: Negative Neurological: Other - AMS Positive: Weakness Psychological: Normal All Other Systems Reviewed And Are Negative: Yes Physical Exam - Summary Physical Exam Summary: The patient is well-nourished in no acute distress and in no acute pain. The skin is warm and dry but pale looking HEENT: The head is normocephalic and atraumatic. The pupils are equal and reactive. The conjunctivae are clear and without drainage. Nares are patent and without drainage. Mouth reveals extremely dry mucous membranes and the throat is without erythema and exudate. The external ears are intact. The ear canals are patent and without drainage. The tympanic membranes are intact. Neck is supple with full range of motion and non-tender. There are no carotid bruits. There is no neck vein distension. Respiratory: Chest is non-tender. Lungs are clear to auscultation and breath sounds are symmetrical and equal. Cardiovascular: Hear is regular rate and rhythm. There is no murmur or rub auscultated. There is no peripheral edema and pulses are symmetrical and equal. Abdomen: The abdomen is soft and non-tender. There are normal bowel sounds heard in all four quadrants and there is no organomegaly palpated. Musculoskeletal: There is no back pain noted. Extremities are non-tender with full range of motion. There is good capillary refill. There is no peripheral edema or calf tenderness elicited. Neurological: Patient is in alert, oriented to person, place and time. The patient has generalized weakness, and neurological difficulties with basic activities. Cranial nerves are grossly intact. Deep tendon reflexes are symmetrical and equal in all four extremities. Psychiatric: The patient has an appropriate affect and does not exhibit any anxiety or depression. Triage Information Reviewed: Yes Vital Signs On Initial Exam: Initial Vitals Temp Pulse Resp BP Pulse Ox 97.1 F 50 16 147/52 93 02/29/16 11:12 02/29/16 11:12 02/29/16 11:12 02/29/16 11:12 02/29/16 11:12 Vital Signs Reviewed: Yes - Emigdio Coma Scale Coma Scale Total: 15 Diagnostics - Vital Signs Vital Signs Temp Pulse Resp BP Pulse Ox 02/29/16 11:16 54 94 02/29/16 11:12 97.1 F 50 16 147/52 93 - Laboratory Lab Results: Lab Results 02/29/16 02/29/16 02/29/16 Range/Units 11:14 11:50 11:50 WBC 8.0 (3.5-10.8) 10^3/ul RBC 4.13 (4.0-5.4) 10^6/ul Hgb 13.3 (12.0-16.0) g/dl Hct 40 (35-47) % MCV 98 H (80-97) fL MCH 32 H (27-31) pg MCHC 33 (31-36) g/dl RDW 17 H (10.5-15) % Plt Count 267 (150-450) 10^3/ul MPV 9 (7.4-10.4) um3 Neut % (Auto) 56.7 (38-83) % Lymph % (Auto) 33.8 (25-47) % [place] % (Auto) 7.8 (1-9) % Eos % (Auto) 1.4 (0-6) % Baso % (Auto) 0.3 (0-2) % Absolute Neuts (auto) 4.6 (1.5-7.7) 10^3/ul Absolute Lymphs (auto) 2.7 (1.0-4.8) 10^3/ul Absolute Monos (auto) 0.6 (0-0.8) 10^3/ul Absolute Eos (auto) 0.1 (0-0.6) 10^3/ul Absolute Basos (auto) 0 (0-0.2) 10^3/ul Absolute Nucleated RBC 0.01 10^3/ul Nucleated RBC % 0.2 Sodium 140 (133-145) mmol/L Potassium 3.5 (3.5-5.0) mmol/L Chloride 103 (101-111) mmol/L Carbon Dioxide 32 (22-32) mmol/L Anion Gap 5 (2-11) mmol/L BUN 24 (6-24) mg/dL Creatinine 0.93 (0.51-0.95) mg/dL Est GFR ( Amer) 77.1 (>60) Est GFR (Non-Af Amer) 60.0 (>60) BUN/Creatinine Ratio 25.8 H (8-20) Glucose 91 (70-100) mg/dL Lactic Acid (0.5-2.0) mmol/L Calcium 9.1 (8.6-10.3) mg/dL Magnesium 2.0 (1.9-2.7) mg/dL Total Bilirubin 0.70 (0.2-1.0) mg/dL AST 16 (13-39) U/L ALT 23 (7-52) U/L Alkaline Phosphatase 73 (34-104) U/L Total Creatine Kinase 28 (10-223) U/L Troponin I Cancelled Total Protein 6.4 (6.4-8.9) g/dL Albumin 3.4 (3.2-5.2) g/dL Globulin 3.0 (2-4) g/dL Albumin/Globulin Ratio 1.1 (1-3) TSH 6.67 H (0.34-5.60) mcIU/mL Cortisol 4.37 g/dL Urine Color Straw Urine Appearance Clear Urine pH 7.0 (5-9) Ur Specific [place] 1.008 L (1.010-1.030) Urine Protein Negative (Negative) Urine Ketones Negative (Negative) Urine Blood Negative (Negative) Urine Nitrate Negative (Negative) Urine Bilirubin Negative (Negative) Urine Urobilinogen Negative (Negative) Ur Leukocyte Esterase Negative (Negative) Urine Glucose Negative (Negative) Urine Opiates Screen (None Detect) Ur Barbiturates Screen (None Detect) Ur Phencyclidine Scrn (None Detect) Ur Amphetamines Screen (None Detect) U Benzodiazepines Scrn (None Detect) Urine Cocaine Screen (None Detect) U Cannabinoids Screen (None Detect) 02/29/16 02/29/16 Range/Units 11:50 12:25 WBC (3.5-10.8) 10^3/ul RBC (4.0-5.4) 10^6/ul Hgb (12.0-16.0) g/dl Hct (35-47) % MCV (80-97) fL MCH (27-31) pg MCHC (31-36) g/dl RDW (10.5-15) % Plt Count (150-450) 10^3/ul MPV (7.4-10.4) um3 Neut % (Auto) (38-83) % Lymph % (Auto) (25-47) % [place] % (Auto) (1-9) % Eos % (Auto) (0-6) % Baso % (Auto) (0-2) % Absolute Neuts (auto) (1.5-7.7) 10^3/ul Absolute Lymphs (auto) (1.0-4.8) 10^3/ul Absolute Monos (auto) (0-0.8) 10^3/ul Absolute Eos (auto) (0-0.6) 10^3/ul Absolute Basos (auto) (0-0.2) 10^3/ul Absolute Nucleated RBC 10^3/ul Nucleated RBC % Sodium (133-145) mmol/L Potassium (3.5-5.0) mmol/L Chloride (101-111) mmol/L Carbon Dioxide (22-32) mmol/L Anion Gap (2-11) mmol/L BUN (6-24) mg/dL Creatinine (0.51-0.95) mg/dL Est GFR ( Amer) (>60) Est GFR (Non-Af Amer) (>60) BUN/Creatinine Ratio (8-20) Glucose (70-100) mg/dL Lactic Acid 1.1 (0.5-2.0) mmol/L Calcium (8.6-10.3) mg/dL Magnesium (1.9-2.7) mg/dL Total Bilirubin (0.2-1.0) mg/dL AST (13-39) U/L ALT (7-52) U/L Alkaline Phosphatase (34-104) U/L Total Creatine Kinase (10-223) U/L Troponin I Total Protein (6.4-8.9) g/dL Albumin (3.2-5.2) g/dL Globulin (2-4) g/dL Albumin/Globulin Ratio (1-3) TSH (0.34-5.60) mcIU/mL Cortisol g/dL Urine Color Urine Appearance Urine pH (5-9) Ur Specific [place] (1.010-1.030) Urine Protein (Negative) Urine Ketones (Negative) Urine Blood (Negative) Urine Nitrate (Negative) Urine Bilirubin (Negative) Urine Urobilinogen (Negative) Ur Leukocyte Esterase (Negative) Urine Glucose (Negative) Urine Opiates Screen None detected (None Detect) Ur Barbiturates Screen None detected (None Detect) Ur Phencyclidine Scrn None detected (None Detect) Ur Amphetamines Screen None detected (None Detect) U Benzodiazepines Scrn None detected (None Detect) Urine Cocaine Screen None detected (None Detect) U Cannabinoids Screen None detected (None Detect) Result Diagrams: 02/29/16 11:50 02/29/16 11:50 Lab Statement: Any lab studies that have been ordered have been reviewed, and results considered in the medical decision making process. - Radiology CXR Xray Interpretation: No Acute Changes Radiology Interpretation Completed By: Radiologist - EKG 1243. Cardiac Rate: Bradycardia EKG Rhythm: Sinus Bradycardia ST Segment: Non-Specific EKG Interpretation: T wave Inversion at v5, v6, and aVF. no STEMI Re-Evaluation - Re-Evaluation First Eval Re-Evaluation Time: 14:52 - reviewed lab and imaging results with the pt's . Change: Unchanged - Pt is still confused and is uncomfortable with pt going home. Will call hospitalist for possible admission. Altered Mental Statu Course/Dx - Diagnoses Differential Diagnosis/HQI/PQRI: CVA, Hypoglycemia, Injury, Intracranial Bleed, Medication Reaction, Metabolic Disorder, Sepsis, Seizure, Other - sleep apnea Discharge Diagnoses: Altered mental status - Provider Notifications Discussed Care Of Patient With: Dr. Jasso (Hospitalist) @1500. Will admit pt, but wants ABG and CT ordered. Discharge - Discharge Plan Condition: Guarded Disposition: HOME Referrals: Ellen Reynolds MD [Primary Care Provider] - The documentation as recorded by the Rupert bowles Benjamin accurately reflects the service I personally performed and the decisions made by , Evens Treviño MD.
[2016-02-29 15:19] LABS: PCO2 Arterial 52 mmHg (35-45)
--- NOTE | 2016-02-29 15:56 | RAD ---
HISTORY: Altered mental status, bleed COMPARISONS: February 21, 2016 TECHNIQUE: Multiple contiguous axial CT scans were obtained of the head without intravenous contrast. FINDINGS: HEMORRHAGE/INFARCT: There is no hemorrhage or acute infarct. MASSES/SHIFT: There is no mass or shift. EXTRA-AXIAL SPACES: There are no extra-axial fluid collections. SULCI AND VENTRICLES: The sulci and ventricles are normal in size and position for the patient's stated age. CEREBRUM: There is hypoattenuation of the periventricular and subcortical white matter. BRAINSTEM: There are no focal parenchymal abnormalities. CEREBELLUM: There are no focal parenchymal abnormalities. VESSELS: The vessels are grossly normal. PARANASAL SINUSES: The paranasal sinuses are clear. ORBITS: The orbits are unremarkable. BONES AND SOFT TISSUE: No bone or soft tissue abnormalities are noted. OTHER: None IMPRESSION: NO ACUTE INTRACRANIAL PATHOLOGY. CHRONIC SMALL VESSEL ISCHEMIC CHANGES.
--- NOTE | 2016-02-29 17:52 | PN ---
Hospitalist Progress Note HOSPITALIST ADDENDUM Case reviewed and d/w A. Pipe WEBSTER. Mrs. Ann is a 70yo F with PMH of MS, recently admitted for an UTI, discharged on prednisone for possible adrenal insufficiency, who presents to ED with altered MS and report of hallucinations. Lab test reviewed. She does not appear to be infected at this time. Suspect her altered MS is associated with steroid use. Agree with current management.
[2016-02-29] MEDS ORDERED: Ondansetron INJ* 2 MG/ML VIAL IV PRN (17:54)
[2016-02-29] MEDS ORDERED: Acetaminophen SUPP* 650 MG SUPP PR PRN (17:57)
[2016-02-29] MEDS ORDERED: Glatiramer(NF) 20 MG/ML 1 ML SYRINGE SUBCUT SCH (18:00)
[2016-02-29] MEDS: NS 0.9% 1000 ML* 1,000 ML IV SCH ×2 (18:14→22:32)
[2016-02-29 18:31] LABS: Free T4 1.17 ng/dL (0.61-1.12)
--- NOTE | 2016-02-29 21:12 | HP ---
ADMISSION HISTORY AND PHYSICAL: DATE OF ADMISSION: 02/29/16 PRIMARY CARE PROVIDER: Dr. Reynolds. ADMITTING PROVIDER: ELEANOR Fair SUPERVISING PHYSICIAN: Dr. Melissa Singh.* (DICTATED BY ELEANOR FAIR) CHIEF COMPLAINT: Altered mental status. HISTORY OF PRESENT ILLNESS: This is a 70-year-old female with history of multiple sclerosis, obstructive sleep apnea, atrial fibrillation, neurogenic bladder who presented to the emergency department with her concerned about altered mental status. The patient was discharged from the hospital on where she was initially found to have hypothermia with again altered mental status likely secondary to urinary tract infection and the patient subsequently improved with antibiotics. There was a question of adrenal insufficiency that contributed to her acute presentation and the patient was started on corticosteroids. The patient was discharged with continuation of 20 mg of prednisone daily with referral to Endocrinology for subsequent followup. The patient has been continued on 20 mg of prednisone since discharge and she did follow up with her primary care provider, but is yet to see Dr. Cortez in Endocrinology. Over the last week or so, the patient has been experiencing visual and auditory hallucinations and seems to be intermittently confused with increased weakness. This morning, the patient's had trouble waking her up and thus contacted EMS to transport her to the emergency department. Also of note, the patient recently discontinued her BiPAP for unknown reasons, seems to be related to her anxiety. There has been no recent illness or other acute complaints. PAST MEDICAL HISTORY: 1. Multiple sclerosis - wheelchair bound at baseline. 2. Obstructive sleep apnea. 3. Atrial fibrillation. 4. Neurogenic bladder requiring straight catheterization twice daily. HOME MEDICATIONS: 1. Acetaminophen 650 mg per rectum q.6 hours p.r.n. pain or fever. 2. Lipitor 10 mg p.o. daily. 3. Baclofen 45 mg p.o. twice daily. 4. Calcium and vitamin D supplement 1 tablet p.o. daily. 5. Cipro 500 mg p.o. twice daily. 6. Clotrimazole with betamethasone cream apply topically twice daily. 7. Ferrous sulfate 325 mg p.o. on Friday, Friday, Friday. 8. Copaxone 20 mg subcu daily. 9. Hydrocortisone cream 2.5% apply topically twice daily as needed for rash. 10. Ipratropium nasal spray 0.03% in both nares twice daily. 11. Miconazole nitrate 2% topical daily. 12. Multivitamin 1 tablet p.o. daily. 13. Xarelto 20 mg p.o. daily. 14. VESIcare 10 mg p.o. daily. 15. Prednisone 20 mg p.o. daily. 16. Rythmol 150 mg p.o. q.8 hours. FAMILY HISTORY: Father from CHF. Mother from CVA. SOCIAL HISTORY: The patient lives at home with her . She is wheelchair bound at baseline. She is DNR/DNI. No significant alcohol history or regular tobacco use. REVIEW OF SYSTEMS: Unable to obtain review of systems from the patient, but limited review per as noted in the HPI. PHYSICAL EXAMINATION GENERAL: This is an elderly female who appears older than stated age, who is lying comfortably in emergency department stretcher, but she does not awaken to verbal or tactile stimuli. The patient is accompanied by her daughter and . VITAL SIGNS: Temperature 97.1 degrees Fahrenheit, pulse 50 beats per minute, respiratory rate 16 per minute, oxygen saturation 93% on room air, and blood pressure 147/52 mmHg. HEENT: Head is normocephalic and atraumatic. Mucous membranes are dry. NECK: Supple without lymphadenopathy. No obvious JVD. RESPIRATORY: Lungs are clear to auscultation without wheezes, crackles, or rhonchi noted. Apneic episodes that last a couple of seconds while the patient is resting. CARDIOVASCULAR: Heart has a regular rate and rhythm without murmurs, rubs, or gallops. ABDOMEN: Soft with bowel sounds present. EXTREMITIES: Trace lower extremity edema. SKIN: Limited exam shows no abnormal rashes or lesions. LABORATORY EVALUATION: CBC is essentially within normal limits. She has a white blood cell count of 8000, hemoglobin 13.8 g/dL, and platelet count of 267, 000. Comprehensive metabolic panel is also unremarkable. Sodium of 140 mmol/L, potassium 3.5 mmol/L, BUN 24, creatinine 0.93, and estimated GFR of 60. Random glucose is normal at 91. Lactic acid within normal limits at 1.1. Transaminases and total bilirubin also within normal limits. Troponin mildly elevated at 0.04. TSH elevated at 6.67. Free T4 is pending. Random cortisol is 4.37. Urinalysis is within normal limits. No nitrates, white blood cells, or leuk esterase. Urine toxicology screen is negative. ABG shows a compensated respiratory acidosis with a pH of 7.39, PCO2 of 52, bicarb of 29, and a PO2 of 118. IMAGING: CT of the brain is read as no acute process. Chest x-ray also shows no acute process. EKG shows a sinus bradycardia with a rate of 54. No acute ischemic changes. ASSESSMENT AND PLAN: This is a 70-year-old female with history of multiple sclerosis; obstructive sleep apnea, not currently using her BiPAP; atrial fibrillation, anticoagulated on Xarelto; neurogenic bladder requiring twice daily straight catheterizations who presents with altered mental status after recently starting prednisone for suspected adrenal insufficiency. 1. Encephalopathy of unknown origin - initiate supportive care measures at this time possibly due to recent steroid use. Vitals and labs are all within normal limits. ABG suggested chronic respiratory process, unlikely to be contributing to her current acute state, but we will reinitiate her BiPAP for obstructive sleep apnea and initiate normal saline. 2. Multiple sclerosis - maintained on Copaxone - the patient's acute presentation does not appear to be consistent with an multiple sclerosis exacerbation. 3. Suspected adrenal insufficiency with recent steroid use. The patient's random cortisol is normal. She was noted to be hypertensive and again without electrolyte abnormalities. Her acute presentation can certainly be due to recent initiation of prednisone. We will start to taper this starting with just 15 mg daily tomorrow. The patient would benefit from Endocrinology consult. This was pending as an outpatient for a couple of weeks from now. We will request Dr. Cortez to see her tomorrow. 4. Obstructive sleep apnea - not recently using her BiPAP, but we will reinitiate that during her hospital stay. 5. Atrial fibrillation, anticoagulated on Xarelto. 6. Neurogenic bladder requiring straight catheterizations twice daily at home, we will insert Perez catheter. 7. Elevated TSH - this was noted on her last 2 hospital stays. A free T4 has been normal on both occasions likely due to transient elevation secondary to acute illness. We will repeat free T4, but not planning on initiating levothyroxine unless free T4 is also low. 8. Chronic respiratory acidosis likely secondary to untreated obstructive sleep apnea. 9. Code status: The patient is DNR/DNI. 10. Healthcare proxy is her , Shawn. 11. DVT prophylaxis: The patient is chronically anticoagulated on Xarelto. DISPOSITION: The patient will be admitted under observation status to the hospital for encephalopathy of unknown origin. ELEANOR FAIR CC: Dr. Reynolds * [id number]/[facility] #: [id number]
[2016-02-29] MEDS: Baclofen TAB* 10 MG PO SCH (22:08)
[2016-02-29] MEDS: PTO: Glatiramer(NF) 20 MG/ML 1 ML SYRINGE SUBCUT SCH (22:08)
[2016-02-29] MEDS: proPAFENone TAB* 150 MG PO SCH (22:08)
[2016-03-01] MEDS: proPAFENone TAB* 150 MG PO SCH ×3 (05:31→22:25)
[2016-03-01 05:58] LABS: Hematocrit 36 % (35-47); Hemoglobin 11.7 g/dl (12.0-16.0); Mean Corpuscular HGB Conc 33 g/dl (31-36); Mean Corpuscular Hemoglobin 32 pg (27-31); Mean Corpuscular Volume 99 fL (80-97); Mean Platelet Volume 9 um3 (7.4-10.4); Red Blood Count 3.61 10^6/ul (4.0-5.4); Red Cell Distribution Width 17 % (10.5-15); White Blood Count 7.3 10^3/ul (3.5-10.8)
[2016-03-01 06:16] LABS: BUN/Creatinine Ratio 22.2 (8-20); Calcium 7.9 mg/dL (8.6-10.3); EGFR African American 103.6 (>60); EGFR Non-African American 80.6 (>60); Potassium 3.9 mmol/L (3.5-5.0)
[2016-03-01] MEDS: Baclofen TAB* 10 MG PO SCH ×2 (07:23→22:25)
[2016-03-01] MEDS: predniSONE TAB* 5 MG PO SCH (07:23)
[2016-03-01] MEDS: CMCS Solifenacin(NF) 5 MG TAB PO SCH (07:27)
[2016-03-01] MEDS: NS 0.9% 1000 ML* 1,000 ML IV SCH (07:35)
--- NOTE | 2016-03-01 16:00 | PN ---
Subjective Date of Service: 03/01/16 Interval History: Patient seen and examined at bedside. Pt denies complaints. Denies fever, chills , shortness of breath, chest discomfort, shortness of breath, N/V/D. Pt states that she is hungry. Tele: Sinus carlos to sinus rhythm, rate 50-60's. Family History: Unchanged from Admission Social History: Unchanged from Admission Past Medical History: Unchanged from Admission Objective Active Medications: Acetaminophen (Tylenol Supp*) 650 mg [place] Q6H PRN Reason: FEVER/HEADACHE Baclofen (Lioresal Tab*) 45 mg PO BID [facility] Glatiramer Acetate (Copaxone(Nf)) 20 mg SUBCUT QPM [facility] Ondansetron HCl (Zofran Inj*) 4 mg IV Q4H PRN Reason: NAUSEA/VOMITING Prednisone (Deltasone Tab*) 15 mg PO DAILY [facility] Propafenone HCl (Rythmol*) 150 mg PO Q8HR [facility] Rivaroxaban (Xarelto (*)) 20 mg PO DAILY@1700 [facility] Solifenacin (Vesicare(Nf)) 10 mg PO DAILY [facility] Vital Signs 02/29/16 02/29/16 02/29/16 17:00 18:00 18:06 Temperature Pulse Rate 56 53 56 Respiratory 17 12 18 Rate Blood Pressure 150/91 (mmHg) O2 Sat by Pulse 99 99 98 Oximetry 02/29/16 02/29/16 02/29/16 18:30 18:47 19:00 Temperature 97.3 F Pulse Rate 53 54 56 Respiratory 14 16 18 Rate Blood Pressure 163/57 150/91 167/44 (mmHg) O2 Sat by Pulse 98 97 Oximetry 02/29/16 02/29/16 03/01/16 19:47 23:35 00:07 Temperature 97.5 F Pulse Rate 55 Respiratory 16 16 16 Rate Blood Pressure 156/85 (mmHg) O2 Sat by Pulse 99 Oximetry 03/01/16 03/01/16 03/01/16 00:13 03:31 07:37 Temperature 97.4 F 97.4 F 97.3 F Pulse Rate 58 61 64 Respiratory 16 16 16 Rate Blood Pressure 135/63 159/59 155/68 (mmHg) O2 Sat by Pulse 95 97 98 Oximetry 03/01/16 03/01/16 03/01/16 08:00 11:55 15:39 Temperature 97.8 F 96.4 F Pulse Rate 67 63 Respiratory 16 16 16 Rate Blood Pressure 152/71 133/55 (mmHg) O2 Sat by Pulse 100 100 Oximetry Oxygen Devices in Use Now: Nasal Cannula - 2L Appearance: NAD, resting in bed. Eyes: No Scleral Icterus, PERRLA Ears/Nose/Mouth/Throat: NL Teeth, Lips, Gums, Mucous Membranes Moist Neck: NL Appearance and Movements; NL JVP, Trachea Midline Respiratory: Symmetrical Chest Expansion and Respiratory Effort, Clear to Auscultation Cardiovascular: NL Sounds; No Murmurs; No JVD, RRR Abdominal: NL Sounds; No Tenderness; No Distention Extremities: - - Trace bilateral LE edema. Skin: No Rash or Ulcers Neurological: Alert and Oriented x 3, NL Muscle Strength and Tone Lines/Tubes/Other Access: Clean, Dry and Intact Peripheral IV - site bengin. Nutrition: Taking PO's Result Diagrams: 03/01/16 05:15 03/01/16 05:15 Additional Lab and Data: Assess/Plan/Problems-Billing Assessment: Ms. Ann is a 70 yo female with PMH significant for MS, GEN who was not currently using her BiPAP, afib on Xarelto, and neurogenic bladder who presented to the emergency room with altered mental status after recently starting prednisone for a suspected adrenal insufficiency. - Patient Problems (1) Encephalopathy Code(s): G93.40 - ENCEPHALOPATHY, UNSPECIFIED SNOMED Code(s): 62638848 Comment: Continue supportive measures. Suspect this could be related to recent steroid use. Pt also has chronic respiratory process, continue BiPAP. (2) Multiple sclerosis Code(s): G35 - MULTIPLE SCLEROSIS SNOMED Code(s): 03820869 Comment: Continue glatiramer and baclofen. (3) Adrenal insufficiency Code(s): E27.40 - UNSPECIFIED ADRENOCORTICAL INSUFFICIENCY SNOMED Code(s): 415608028 Comment: Suspected on last admission and Pt was started on steroids. Pt has a normal cortisol. Her altered mental status could be caused by steroids. Prednisone taper started yesterday. Endocinology consult pending. (4) Obstructive sleep apnea Code(s): G47.33 - OBSTRUCTIVE SLEEP APNEA (ADULT) (PEDIATRIC) SNOMED Code(s): 47758199 Comment: Offer hospital CPAP at night and when napping. (5) Atrial fibrillation Code(s): I48.91 - UNSPECIFIED ATRIAL FIBRILLATION SNOMED Code(s): 29131573 Comment: Not currently in atrial fibrillation. Continue propafenone and rivaroxaban. (6) Neurogenic bladder Code(s): N31.9 - NEUROMUSCULAR DYSFUNCTION OF BLADDER, UNSPECIFIED SNOMED Code (s): 149694114 Comment: Continue Vesicare. At home, patient on BID straight catheterization regimen. Continue to straight cath BID. (7) Elevated TSH Code(s): R94.6 - ABNORMAL RESULTS OF THYROID FUNCTION STUDIES SNOMED Code(s): 486886823 Comment: TSH elevated last 2 hospital stays, but is trending down. Free T4 normal on previous admissions, but elevated now. Will hold on initiating medications. Endocrinology consult pending. (8) Chronic respiratory acidosis Code(s): E87.2 - ACIDOSIS SNOMED Code(s): 6725301 Comment: Suspect related to untreated GEN. Pt encouraged to use BiPAP at night and when napping. (9) DVT prophylaxis Code(s): IJZ4055 - SNOMED Code(s): 516763914 Comment: Continue Xarelto. (10) DNR (do not resuscitate) Status and Disposition: Inpatient. Estimated LOS > 2 days. Discharge to home when medically stable.
[2016-03-01] MEDS: PTO: Glatiramer(NF) 20 MG/ML 1 ML SYRINGE SUBCUT SCH (17:12)
[2016-03-01] MEDS: Rivaroxaban TAB(*) 20 MG TAB PO SCH (17:12)
[2016-03-02] MEDS: proPAFENone TAB* 150 MG PO SCH ×3 (05:12→22:05)
[2016-03-02] MEDS: Baclofen TAB* 10 MG PO SCH ×2 (09:55→22:05)
[2016-03-02] MEDS: CMCS Solifenacin(NF) 5 MG TAB PO SCH (09:56)
[2016-03-02] MEDS: predniSONE TAB* 5 MG PO SCH (09:56)
--- NOTE | 2016-03-02 10:02 | PN ---
Subjective Date of Service: 03/02/16 Interval History: Patient seen and examined at bedside. Pt states that she feels slightly confused today. Denies fever, chills, shortness of breath, chest discomfort, N/V /D. Tele: Sinus rhythm, rate 60-90's. Family History: Unchanged from Admission Social History: Unchanged from Admission Past Medical History: Unchanged from Admission Objective Active Medications: Acetaminophen (Tylenol Supp*) 650 mg [place] Q6H PRN Reason: FEVER/HEADACHE Baclofen (Lioresal Tab*) 45 mg PO BID [facility] Glatiramer Acetate (Copaxone(Nf)) 20 mg SUBCUT QPM [facility] Ondansetron HCl (Zofran Inj*) 4 mg IV Q4H PRN Reason: NAUSEA/VOMITING Prednisone (Deltasone Tab*) 15 mg PO DAILY [facility] Propafenone HCl (Rythmol*) 150 mg PO Q8HR [facility] Rivaroxaban (Xarelto (*)) 20 mg PO DAILY@1700 [facility] Solifenacin (Vesicare(Nf)) 10 mg PO DAILY [facility] Vital Signs 03/01/16 03/01/16 03/01/16 11:55 15:39 19:38 Temperature 97.8 F 96.4 F Pulse Rate 67 63 Respiratory 16 16 16 Rate Blood Pressure 152/71 133/55 (mmHg) O2 Sat by Pulse 100 100 Oximetry 03/01/16 03/01/16 03/02/16 19:45 23:45 03:56 Temperature 97.5 F 97.4 F 97.7 F Pulse Rate 67 61 57 Respiratory 16 20 16 Rate Blood Pressure 129/55 142/56 120/52 (mmHg) O2 Sat by Pulse 93 100 100 Oximetry Oxygen Devices in Use Now: None Appearance: NAD, sitting up in bed. Eyes: No Scleral Icterus, PERRLA Ears/Nose/Mouth/Throat: NL Teeth, Lips, Gums Neck: NL Appearance and Movements; NL JVP, Trachea Midline Respiratory: Symmetrical Chest Expansion and Respiratory Effort, Clear to Auscultation Cardiovascular: NL Sounds; No Murmurs; No JVD, RRR Abdominal: NL Sounds; No Tenderness; No Distention Skin: No Rash or Ulcers Neurological: Alert and Oriented x 3 - Pt knows the month and year., NL Muscle Strength and Tone Lines/Tubes/Other Access: Clean, Dry and Intact Peripheral IV - site benign. Nutrition: Taking PO's Result Diagrams: 03/01/16 05:15 03/01/16 05:15 Additional Lab and Data: Assess/Plan/Problems-Billing Assessment: Ms. Ann is a 70 yo female with PMH significant for MS, GEN who was not currently using her BiPAP, afib on Xarelto, and neurogenic bladder who presented to the emergency room with altered mental status after recently starting prednisone for a suspected adrenal insufficiency. - Patient Problems (1) Encephalopathy Code(s): G93.40 - ENCEPHALOPATHY, UNSPECIFIED SNOMED Code(s): 26103817 Comment: Improving. Continue supportive measures. Suspect this could be related to recent steroid use. Pt also has chronic respiratory process, continue BiPAP. (2) Multiple sclerosis Code(s): G35 - MULTIPLE SCLEROSIS SNOMED Code(s): 46052155 Comment: Continue glatiramer and baclofen. (3) Adrenal insufficiency Code(s): E27.40 - UNSPECIFIED ADRENOCORTICAL INSUFFICIENCY SNOMED Code(s): 142474524 Comment: Suspected on last admission and Pt was started on steroids. Pt has a normal cortisol. Her altered mental status could be caused by steroids. Prednisone taper started yesterday. Endocinology consult pending. (4) Obstructive sleep apnea Code(s): G47.33 - OBSTRUCTIVE SLEEP APNEA (ADULT) (PEDIATRIC) SNOMED Code(s): 25564987 Comment: Offer hospital CPAP at night and when napping. (5) Atrial fibrillation Code(s): I48.91 - UNSPECIFIED ATRIAL FIBRILLATION SNOMED Code(s): 25429802 Comment: Not currently in atrial fibrillation. Continue propafenone and rivaroxaban. (6) Neurogenic bladder Code(s): N31.9 - NEUROMUSCULAR DYSFUNCTION OF BLADDER, UNSPECIFIED SNOMED Code (s): 893203302 Comment: Continue Vesicare. At home, patient on BID straight catheterization regimen. Continue to straight cath BID. (7) Elevated TSH Code(s): R94.6 - ABNORMAL RESULTS OF THYROID FUNCTION STUDIES SNOMED Code(s): 990656771 Comment: TSH elevated last 2 hospital stays, but is trending down. Free T4 normal on previous admissions, but elevated now. Will hold on initiating medications. Endocrinology consult pending. (8) Chronic respiratory acidosis Code(s): E87.2 - ACIDOSIS SNOMED Code(s): 4343370 Comment: Suspect related to untreated GEN. Pt encouraged to use BiPAP at night and when napping. (9) DVT prophylaxis Code(s): [id number] - SNOMED Code(s): 404629336 Comment: Continue Xarelto. (10) DNR (do not resuscitate) Status and Disposition: Inpatient. Estimated LOS > 2 days. Discharge to home when medically stable.
[2016-03-02] MEDS ORDERED: Levothyroxine TAB* 50 MCG TAB PO ONE (12:45)
[2016-03-02 16:43] LABS: Free T3 3.1 pg/mL (2.5-3.9)
[2016-03-02 16:47] LABS: Total T3 0.87 ng/mL (0.87-1.78)
[2016-03-02 16:49] LABS: Prolactin 7.3 ng/mL (1.0-25.0)
[2016-03-02] MEDS: PTO: Glatiramer(NF) 20 MG/ML 1 ML SYRINGE SUBCUT SCH (17:13)
[2016-03-02] MEDS: Rivaroxaban TAB(*) 20 MG TAB PO SCH (17:14)
[2016-03-02 17:16] LABS: Follicle Stimulating Hormone 51.8 mIU/mL; Luteinizing Hormone 13.8 IU/mL
--- NOTE | 2016-03-02 19:59 | CONS ---
CONSULTATION NOTE: DATE OF CONSULT: 03/02/16 REASON FOR CONSULTATION: Hypothermia, altered mental status, possible adrenal insufficiency or other endocrine issue. HISTORY: Leyda Ann is a 70-year-old female. She has longstanding multiple sclerosis and has had multiple recent admissions. She has been treated by Dr. Lubin for multiple sclerosis and at present is taking Copaxone , but she was receiving monthly IV infusions of methylprednisolone 1000 mg, the last one on record is 11/30/15. I obtained the history from the patient and her and he states that she was getting these shots for at least 5 years. She was admitted from 02/21/16 to 02/24/16 with hypothermia, altered mental status, UTI, suspected adrenal insufficiency. She was started on methylprednisolone 20 mg daily. She had an elevated PSA. She had a normal free T4 and there was a note to repeat TSH in 4 to 6 weeks. The patient herself is not fully aware of the total situation; however, she is alert and oriented and conversational. She states she is feeling well today. She thinks her confusion was due to dehydration. She denies any pain or discomfort, any fevers or sweats. She also tells me she has not had any other endocrinopathy in the past. No thyroid disease, no adrenal disease and no pituitary disease, no type 2 diabetes mellitus. Her states that she has had episodes of hypothermia with minimum temperature being 90 degrees Fahrenheit in the emergency room. On this occasion , he brought her to the hospital because of change in mental status. He states that she has occasional hallucinations but they have become more severe and more intrusive over the last few days. He describes her as talking in her sleep. He states that there is nobody there. She is also hallucinated. She has no prior history of head injury. On direct questioning because of the multiple sclerosis, she does not tolerate heat well. She has not noted feeling cold recently. She has had no change in her bowel habits. PAST SURGICAL HISTORY: She is post inguinal hernia repair and a cervical vertebral fusion. COMORBIDITIES: Atrial fibrillation, chronic anticoagulation, multiple sclerosis , neurogenic bladder CURRENT MEDICATIONS: In the hospital; 1. Acetaminophen 650 mg q.6 hours for fever or headache. 2. Baclofen 45 mg b.i.d. 3. Copaxone 20 mg q.p.m. subcutaneously. 4. Zofran injection 4 mg q.4 hours as needed. 5. Prednisone 15 mg daily. 6. Propafenone 150 mg q.8 hours as needed. 7. Xarelto 20 mg q.p.m. 8. VESIcare 10 mg daily. ALLERGIES: She has no known medication allergies. FAMILY HISTORY: Mother young of CVA. No family history that her knows of endocrinopathy. SOCIAL HISTORY: She is 2, para 2. She has a daughter, Gila, born in 1977 who has 2 kids and lives locally and a son, Phillip, who was born in 1980. No tobacco and no alcohol. She lives with her , Dinesh. She is a retired medical records secretary. She has had relapsing limiting and multiple sclerosis since 1973 and is currently treated with Copaxone. REVIEW OF SYSTEMS: Essentially negative, but I am not clear how attentive she was today. PHYSICAL EXAMINATION: Temperature 97.7, pulse rate 61, respirations 16, oxygen saturation 100%, blood pressure 120/52. She is a woman well perfused. No cyanosis, anemia, jaundice, clubbing, or lymphadenopathy. Cardiovascular System : Her pulse was irregular. Heart sounds were normal. No added sounds or murmurs. She has 1+ edema. Respiratory System: Her chest expansion is full and symmetrical, percussion note resonant, breath sounds vesicular. No crackles or wheezes. Abdominal examination: Obese. No masses, tenderness, or organomegaly. Bowel sounds were present. Endocrine System: Thyroid. She is clinically euthyroid. There is no goiter. No cervical adenopathy or supraclavicular adenopathy. No thyroid eye disease. Adrenals: She has no abnormal pigmentation. She has no acromegaly, acanthosis nigricans, kristi's disorder or other signs of endocrinopathy. Nervous System: She is alert and conversational. Normal speech. I did not do a focal neurological examination. INVESTIGATIONS: On 03/01/16, white count 7.3, hemoglobin 11.7, hematocrit 36, platelets 237. Chemistry today: Sodium 141, potassium 3.9, chloride 108, bicarbonate 28, anion gap 5, BUN 16, creatinine 0.72, EGFR 81, glucose 74, lactic acid 7.9. Troponin I of 0.02. Endocrine testing on 02/29/16, TSH 6.67, free T4 of 1.17, cortisol 4.37. On review of prior investigations, I can find no record in the medication history of having been administered cosyntropin, but there are several measurements of cortisol in the record from last year on 04/09/15 cortisol 26.36 , on 01/28/16 at 26.85, on 02/21/16 at 7.6, and on 02/22/16 at 51.41. Prior evaluations on thyroid function, she has had multiple investigations. On 05/22/15 ,TSH was 3.9; on 01/28/16, 15.69; on 02/21/16, TSH 9.49; on 02/29/16, 6.67. A free T4 level has also been checked and it has ranged between 0.8 on 01/29/16 to 1.17 on 02/29/16. Total T3 has not been measured recently. Other investigations; imaging; brain CT scan on 02/29/16, negative. Chest x-ray , no acute findings. MRI of brain on 02/21/16 is reported showing normal calista white matter lesions consistent with demyelinating plaque and bilateral otitis/ mastoiditis. ASSESSMENT AND PLAN: 1. Adrenal status. This patient has had monthly injections of methylprednisolone 1000 mg for 5 years. It would not be surprising if she had some central adrenal insufficiency; however, she has had multiple measurements of her cortisol, which have been in a reasonable range. She was placed on prednisone during her last hospitalization and at present her cortisol measurement is a little lower. I recommend that we hold the prednisone and we do a cosyntropin test to see whether or not she has any adrenal reserve. I will also check her 21-hydroxylase antibodies in case she has primary adrenal insufficiency. She has a history of multiple sclerosis, so she is entitled to other organ specific autoimmune diseases. 2. Hypothermia/primary hypothyroidism. My main concern is that she has unrecognized hypothyroidism. She has not had T3 measured. Her TSH has been elevated. It is possible that she may have primary hypothyroidism and that the TSH itself is inappropriately low, i.e., that it should be much higher. I will check a full panel of thyroid function and also the thyroid peroxidase antibody level. I think we should start her on thyroid hormone. This is something we can always stop as needed but I would say this was a leading possible cause of hypothermia plus or minus other circumstances such as UTIs. 3. Multiple sclerosis per Dr. Lubin. 4. Atrial fibrillation. Rate is controlled. 5. Remainder of pituitary function. It is possible that she may be deficient to other anterior pituitary hormones. I will certainly screen for this. I will look at her IGF1 levels and also her LH, FSH, and prolactin levels. I spoke to the and the patient and they agree with this workup. [id number]/[facility] #: [id number] MTDD
[2016-03-03] MEDS ORDERED: Cosyntropin* 0.001 MG in Sodium Chloride * 0.5 ML IV ONE (06:00)
[2016-03-03] MEDS: proPAFENone TAB* 150 MG PO SCH ×2 (06:29→13:16)
[2016-03-03 09:01] VITALS: BP 138/63
[2016-03-03] MEDS: CMCS Solifenacin(NF) 5 MG TAB PO SCH (09:02)
[2016-03-03] MEDS: Baclofen TAB* 10 MG PO SCH (09:03)
--- NOTE | 2016-03-03 10:53 | PN ---
Progress Note - Progress Note Note: Endocrine follow up evaluation: She didn't sleep well last night and was having a nap when I entered. She has no new symptoms Investigations: Laboratory Tests 03/02/16 03/03/16 03/03/16 15:29 05:54 06:30 Free T3 3.10 Total T3 0.87 FSH 51.8 Luteinizing Hormone 13.8 Prolactin 7.3 Cortisol 2.67 8.30 Thyroid Peroxidase Ab 0.76 03/03/16 07:02 Free T3 Total T3 FSH Luteinizing Hormone Prolactin Cortisol 5.53 Thyroid Peroxidase Ab A/P 1. Central adrenal insufficiency: The low dose cosyntropin test demonstrate she has adrenal insufficiency. She requires replacement doses of hydrocortisone , not suppressive doses of prednisone that might also cause mental changes. I will start her on hydrocortisone 10 mg qam, 5 mg qnoon 2.5 mg qpm 2. Primary hypothyroidism: The results are interesting. She has evidence of subclinical hypothyroidism. Her thyroid peroxidase abs are negative. I wonder whether the monthly boluses of methyprednisolone have suppressed her antibody response. I will maintain her on levothyroxine 50 mcg qdaily as I am concerned that hypothyroidism is exacerbating her tendency to hypothermia and also is not helping with her mental state.
[2016-03-03] MEDS ORDERED: Hydrocortisone TAB* 5 MG PO SCH ×3 (11:30→18:00)
--- NOTE | 2016-03-03 12:57 | PN ---
Subjective Date of Service: 03/03/16 Interval History: Patient seen and examined at bedside. Pt states that she is feeling well and is anxious to get home. Denies fever, chills, shortness of breath, chest discomfort , N/V/D. Family History: Unchanged from Admission Social History: Unchanged from Admission Past Medical History: Unchanged from Admission Objective Active Medications: Acetaminophen (Tylenol Supp*) 650 mg IN Q6H PRN Reason: FEVER/HEADACHE Baclofen (Lioresal Tab*) 45 mg PO BID [facility] Glatiramer Acetate (Copaxone(Nf)) 20 mg SUBCUT QPM [facility] Hydrocortisone (Cortef Tab*) 10 mg PO DAILY@0800 [facility] Hydrocortisone (Cortef Tab*) 5 mg PO DAILY@1200 [facility] Hydrocortisone (Cortef Tab*) 2.5 mg PO QPM [facility] Ondansetron HCl (Zofran Inj*) 4 mg IV Q4H PRN Reason: NAUSEA/VOMITING Propafenone HCl (Rythmol*) 150 mg PO Q8HR [facility] Rivaroxaban (Xarelto (*)) 20 mg PO DAILY@1700 [facility] Solifenacin (Vesicare(Nf)) 10 mg PO DAILY [facility] Vital Signs 03/02/16 03/02/16 03/02/16 15:26 20:00 23:38 Temperature 98.0 F 97.5 F Pulse Rate 80 67 Respiratory 16 14 20 Rate Blood Pressure 157/64 148/82 (mmHg) O2 Sat by Pulse 97 100 Oximetry 03/03/16 03/03/16 03/03/16 03:30 07:20 08:00 Temperature 97.5 F 97.6 F Pulse Rate 66 61 Respiratory 24 16 18 Rate Blood Pressure 151/77 185/78 (mmHg) O2 Sat by Pulse 100 96 Oximetry 03/03/16 09:01 Temperature Pulse Rate Respiratory Rate Blood Pressure 138/63 (mmHg) O2 Sat by Pulse Oximetry Oxygen Devices in Use Now: None Appearance: NAD, laying in bed. Eyes: No Scleral Icterus, PERRLA Ears/Nose/Mouth/Throat: NL Teeth, Lips, Gums, Mucous Membranes Moist Neck: NL Appearance and Movements; NL JVP, Trachea Midline Respiratory: Symmetrical Chest Expansion and Respiratory Effort, Clear to Auscultation Cardiovascular: NL Sounds; No Murmurs; No JVD, RRR Abdominal: NL Sounds; No Tenderness; No Distention Extremities: No Edema Skin: No Rash or Ulcers Neurological: Alert and Oriented x 3 - Pt knows the year and month, unaware of the date., NL Muscle Strength and Tone Lines/Tubes/Other Access: Clean, Dry and Intact Peripheral IV - site benign. Nutrition: Taking PO's Result Diagrams: 03/01/16 05:15 03/01/16 05:15 Additional Lab and Data: Assess/Plan/Problems-Billing Assessment: Ms. Ann is a 70 yo female with PMH significant for MS, GEN who was not currently using her BiPAP, afib on Xarelto, and neurogenic bladder who presented to the emergency room with altered mental status after recently starting prednisone for a suspected adrenal insufficiency. - Patient Problems (1) Encephalopathy Code(s): G93.40 - ENCEPHALOPATHY, UNSPECIFIED SNOMED Code(s): 19329050 Comment: Improving. Continue supportive measures. Suspect this could be related to recent steroid use. Pt also has chronic respiratory process, continue BiPAP. (2) Adrenal insufficiency Code(s): E27.40 - UNSPECIFIED ADRENOCORTICAL INSUFFICIENCY SNOMED Code(s): 502087790 Comment: - Endocinology consult, input appreciated - Confirmed central adrenal insufficiency - Will start Hydrocortisone 10 mg QAM, 5 mg Q1200, 2.5 mg Q1800 (3) Obstructive sleep apnea Code(s): G47.33 - OBSTRUCTIVE SLEEP APNEA (ADULT) (PEDIATRIC) SNOMED Code(s): 77271811 Comment: Offer hospital CPAP at night and when napping. (4) Elevated TSH Code(s): R94.6 - ABNORMAL RESULTS OF THYROID FUNCTION STUDIES SNOMED Code(s): 675583052 Comment: - Endocrinology consult, input appreciated - Primary Hypothyroidism - Will continue Levothyroxine 50 mcg (5) Chronic respiratory acidosis Code(s): E87.2 - ACIDOSIS SNOMED Code(s): 9306467 Comment: Suspect related to untreated GEN. Pt encouraged to use BiPAP at night and when napping. (6) Multiple sclerosis Code(s): G35 - MULTIPLE SCLEROSIS SNOMED Code(s): 20169052 Comment: Continue glatiramer and baclofen. (7) Atrial fibrillation Code(s): I48.91 - UNSPECIFIED ATRIAL FIBRILLATION SNOMED Code(s): 72650138 Comment: Not currently in atrial fibrillation. Continue propafenone and rivaroxaban. (8) Neurogenic bladder Code(s): N31.9 - NEUROMUSCULAR DYSFUNCTION OF BLADDER, UNSPECIFIED SNOMED Code (s): 722380355 Comment: Continue Vesicare. At home, patient on BID straight catheterization regimen. Continue to straight cath BID. (9) DVT prophylaxis Code(s): [id number] - SNOMED Code(s): 488330055 Comment: Continue Xarelto. (10) DNR (do not resuscitate) Status and Disposition: Inpatient. Stable for discharge to home today.
--- NOTE | 2016-03-04 00:27 | DS ---
DISCHARGE SUMMARY: DATE OF ADMISSION: 02/29/16 DATE OF DISCHARGE: 03/03/16 AGE: 70. ATTENDING PHYSICIAN: Melissa Singh MD * (dictated by Joana Chino NP). PRIMARY CARE PROVIDER: Ellen Reynolds MD. PRIMARY DIAGNOSES: 1. Altered mental status, suspect related to noncompliance of BiPAP use and recent initiation of steroid therapy. 2. Central adrenal insufficiency. 3. Hypothyroidism. 4. Obstructive sleep apnea. SECONDARY DIAGNOSES: 1. Atrial fibrillation. 2. Neurogenic bladder. 3. Chronic respiratory acidosis. CONSULTATION WHILE IN THE HOSPITAL: Dale Cortez MD, with Endocrinology. STUDIES WHILE IN THE HOSPITAL: 1. Chest x-ray on 02/29/16: Radiologist's impression: No active disease. 2. Brain CT on 02/29/16: Radiologist's impression: No acute intracranial pathology. Chronic small vessel changes. DISCHARGE MEDICATIONS: New home medications: 1. Hydrocortisone 10 mg oral daily at 8 a.m. 2. Hydrocortisone 5 mg oral daily at noon. 3. Hydrocortisone 2.5 mg oral every evening. 4. Levothyroxine 50 mcg oral daily. Continued home medications: 1. Glatiramer 20 mg subcutaneous every evening. 2. Baclofen 45 mg oral twice daily. 3. Hydrocortisone 2.5% cream 1 application topical twice daily as needed for rash. 4. Multivitamin 1 tablet oral daily. 5. Caltrate 600 plus D 1 tablet oral daily. 6. Xarelto 20 mg oral daily. 7. Rythmol 150 mg mg oral every 8 hours. 8. Miconazole 2% topical as needed for rash. 9. Atorvastatin 10 mg oral daily. 10. Clotrimazole with betamethasone 1 application topical twice daily as needed for rash. 11. Acetaminophen 1 suppository IN every 6 hours as needed for fever or headache. 12. Ferrous sulfate 325 mg oral every Friday, Friday and Friday. 13. VESIcare 10 mg oral daily. 14. Ipratropium bromide 0.03% to both nares twice daily. Discontinued home medications: Prednisone and Cipro. HISTORY OF PRESENT ILLNESS/HOSPITAL COURSE: Ms. Ann is a 70-year- old female with past medical history significant for multiple sclerosis, obstructive sleep apnea, atrial fibrillation, and neurogenic bladder who presented to the emergency room with her for concern of altered mental status. The patient was recently discharged from the hospital on 02/24/16, where she was initially found to have hypothermia and altered mental status suspected to be secondary to a urinary tract infection and the patient subsequently improved on antibiotics. There was a question of adrenal insufficiency that contributed to her acute presentation and the patient was started on corticosteroids. The patient was discharged with continuation of 20 mg of prednisone daily with referral to Endocrinology for subsequent followup. The patient had been taking prednisone 20 mg daily and has followed up with her primary care provider but had not yet seen Endocrinology. The patient's noted over the last week or so that she had been experiencing increased visual and auditory hallucinations and seemed to be intermittently confused with increasing weakness. The patient has recently discontinued her BiPAP according to her because she ripped it apart into 4 pieces while she was sleeping and he felt that this was possibly causing her anxiety. The morning of the patient's presentation to the hospital, the patient's had difficulty waking her and called EMS to bring her to the emergency room for further evaluation. While in the emergency room, the patient had a brain CT showing no acute process , chest x-ray showing no acute process. She had ABGs that showed a compensated respiratory acidosis with a pH of 7.39, a PCO2 of 52, bicarb of 29, and a PO2 of 118. The patient had labs that were essentially within normal limits, complete blood count. She had a white blood cell count of 8000, hemoglobin 13.8 , and platelet count of 267,000. The patient had a comprehensive metabolic panel that was also unremarkable with a sodium of 140, potassium 3.5, BUN 24, and creatinine of 0.93 and an estimated GFR of 60. The patient's random glucose was normal at 91. The patient had a lactic acid within normal limits at 1.1. Transaminase and total bilirubin were also within normal limits. The patient had a mildly elevated troponin at 0.04%. TSH was elevated at 6.67 and free T4 was pending during the patient's initial admission. The patient had a random cortisol of 4.37, a urinalysis that was negative with no nitrites, white blood cell counts, or leukocyte esterase. The patient also had a negative urine toxicology screen. Based off concerns for the patient's presentation of altered mental status, hospitalists were asked to evaluate the patient for admission. While in the hospital, the patient's altered mental status improved. The patient was reinitiated on her BiPAP and was able to tolerate that overnight without difficulties. The patient was initially started on a prednisone taper as this was felt also to be contributing to the patient's altered mental status. The patient had a free T4 completed. The patient had an Endocrinology consult with Dr. Dale Cortez who felt that the patient could possibly have adrenal insufficiency and he ordered a cosyntropin test that did demonstrate adrenal insufficiency. It was felt that this was a central adrenal insufficiency and the patient was started on hydrocortisone treatment. The patient also had further evaluation of her thyroid function, which included a free T4, a total T3 , a thyroid peroxidase antibody. It was felt that the patient had evidence of subclinical hypothyroidism, although her thyroid peroxidase antibodies were negative. It was felt that her recent monthly use of methylprednisolone had possibly suppressed her antibody response. She was initiated on levothyroxine 50 mcg oral daily with concern that the patient's hypothyroidism was exacerbating her tendency to be hypothermic and altering her mental status. The patient was doing better and anxious to get home. Ms. Herzog is stable for discharge to home today. Vital signs are as follows: Temperature 97.6, heart rate 61, respiratory rate 16, O2 sat 96% on room air, blood pressure 138/63. DISCHARGE PLAN: Ms. Ann will be discharged to home. Regular diet. Activity as tolerated. As far as her adrenal insufficiency, she should be on hydrocortisone 10 mg oral in the morning, 5 mg oral at noon and 2.5 mg oral every evening. With concern to the patient's hypothyroidism, she has been initiated on levothyroxine 50 mcg oral daily. The patient should follow up with Dr. Cortez in the outpatient setting. The patient's has been instructed to call Dr. Cortez's office on Friday to set up a followup appointment and discuss his concerns with hydrocortisone timing as they do not start their day until approximately 10 a.m. As far as the patient's obstructive sleep apnea, she has been encouraged to use her BiPAP at night and when napping at home. I suspect this could be related to some of the patient's altered mental status as she appears to have a chronic respiratory process with chronic respiratory acidosis, so I suspect it is related to her untreated sleep apnea. As far as the patient's other chronic medical conditions for her multiple sclerosis, she should be continued on her glatiramer and baclofen. For her atrial fibrillation, she should continue on her propafenone and Xarelto. For the patient's neurogenic bladder, she should be continued on VESIcare and straight catheterization twice daily. The patient has been asked to set up a followup appointment with her primary care provider, Dr. Ellen Reynolds, for an appointment in the next week. The patient has been asked to return to the emergency room for chest pain, shortness of breath, or worsening altered mental status. This is a summarized report of a complex medical history and hospital stay. For further details, please see the entire medical record. TIME SPENT: Time for this discharge was 50 minutes, 25 minutes were spent face- to-face with the patient discussing discharge plans and instructions. CONDITION ON DISCHARGE: Stable. Reviewed by KURT MCGEE 03/12/162037 CC: Ellen Reynolds MD* [id number]/CPS #: [id number] MTDD
[2016-03-04] MEDS ORDERED: Hydrocortisone TAB* 10 MG PO SCH (08:00)
[2016-03-06 16:39] LABS: IGF1 Z-score 1.04 SD
== END 2016-03-03 15:13 | disposition home or self-care (01) | DRG 71 ==
LOC: ED 11:03 → MEDTELE 16:45
PROVIDERS: ADMIT Internal Medicine; ATTEND Internal Medicine
PROC: 5A09457 Assistance with Respiratory Ventilation, 24-96 Consecutive Hours, Continuous Positive Airway Pressure (ICD-10-PCS; principal; 2016-02-29)
DX: G93.40 Encephalopathy, unspecified (principal); E27.40 Unspecified adrenocortical insufficiency; E87.2 Acidosis; G35 Multiple sclerosis; G47.33 Obstructive sleep apnea (adult) (pediatric); I48.91 Unspecified atrial fibrillation; N31.9 Neuromuscular dysfunction of bladder, unspecified; Z66 Do not resuscitate; E03.9 Hypothyroidism, unspecified; R41.82 Altered mental status, unspecified; T38.0X5A Adverse effect of glucocorticoids and synthetic analogues, initial encounter; Z79.1 Long term (current) use of non-steroidal anti-inflammatories (NSAID); Z79.01 Long term (current) use of anticoagulants; Z79.899 Other long term (current) drug therapy; Z82.3 Family history of stroke; Z82.49 Family history of ischemic heart disease and other diseases of the circulatory system; Z99.3 Dependence on wheelchair
CPT/HCPCS: 36415; 36600; 70450; 71010; 80048; 80053; 80307; 81003; 82533; 82550; 82803; 83001; 83002; 83605; 83735; 84146; 84305; 84439; 84443; 84479; 84481; 84484; 85025; 86376; 87040; 93005; 94660; 94760; A9270-GY; J0834; J7512

== ENCOUNTER 2016-03-27 12:46 | Inpatient (IN) | payer MEDICARE, BC ==
[2016-03-27 13:36] LABS: FIO2 3
[2016-03-27 13:39] LABS: PCO2 Arterial 55 mmHg (35-45)
[2016-03-27 13:41] LABS: Hematocrit 40 % (35-47); Hemoglobin 13.1 g/dl (12.0-16.0); Mean Corpuscular HGB Conc 33 g/dl (31-36); Mean Corpuscular Hemoglobin 32 pg (27-31); Mean Corpuscular Volume 97 fL (80-97); Mean Platelet Volume 9 um3 (7.4-10.4); Red Blood Count 4.12 10^6/ul (4.0-5.4); Red Cell Distribution Width 16 % (10.5-15); White Blood Count 7.8 10^3/ul (3.5-10.8)
--- NOTE | 2016-03-27 13:48 | RAD ---
Indication: Confusion. Single frontal view of the chest performed at 1320 hours was reviewed. Comparison is made with previous exam dated February 21, 2016. Cardiomegaly is noted. Interstitial edema consistent with vascular congestion is noted. No pleural fluid is identified. IMPRESSION: CARDIOMEGALY WITH INTERSTITIAL EDEMA AND BILATERAL PLEURAL EFFUSIONS.
[2016-03-27 13:53] LABS: Ammonia 30 mol/L (16-53)
[2016-03-27 13:58] LABS: ALT 35 U/L (7-52); AST 31 U/L (13-39); Albumin 3.8 g/dL (3.2-5.2); Alkaline Phosphatase 87 U/L (34-104); Anion Gap 5 mmol/L (2-11); BUN/Creatinine Ratio 20.5 (8-20); Blood Urea Nitrogen 18 mg/dL (6-24); CO2 Carbon Dioxide 32 mmol/L (22-32); Calcium 10.3 mg/dL (8.6-10.3); Chloride 96 mmol/L (101-111); Creatine Kinase 38 U/L (10-223); EGFR African American 81.9 (>60); EGFR Non-African American 63.7 (>60); Globulin 3.2 g/dL (2-4); Glucose 107 mg/dL (70-100); Magnesium 1.8 mg/dL (1.9-2.7); Potassium 4.4 mmol/L (3.5-5.0); Sodium 133 mmol/L (133-145)
[2016-03-27 13:59] LABS: Troponin I 0.02 ng/mL (<0.04)
[2016-03-27 14:18] LABS: Alcohol < 10 mg/dL (<10); Salicylate < 2.50 mg/dL (<30)
[2016-03-27 14:23] LABS: Urine Bacteria Absent (Absent); Urine Bilirubin Negative (Negative); Urine Glucose Negative (Negative); Urine Nitrite Negative (Negative)
[2016-03-27 14:28] LABS: TSH (Thyroid Stimulating Horm) 2.97 mcIU/mL (0.34-5.60)
[2016-03-27 14:33] LABS: Benzodiazepine Urine Screen None Detected (None Detect)
--- NOTE | 2016-03-27 14:38 | RAD ---
Indication: Confusion, altered mental status, headache. CT of the brain was performed without IV contrast. Comparison is made with previous exam dated June 04, 2013. Ventricular structures are midline. No midline shift is noted. The extraction spaces are unremarkable. There is no evidence of a discrete mass or hemorrhage. No other high or low density lesions are identified. IMPRESSION: NO INTRACRANIAL MASS OR HEMORRHAGE IS NOTED.
--- NOTE | 2016-03-27 15:06 | ED ---
Sidney Farley Erika, scribed for Walter Andrew MD on 03/27/16 at 1308 . Altered Mental Status - HPI Summary HPI Summary: Patient is a 71-year-old female presenting to the ED with a CC of AMS. Patient is unable to answer questions, so history is provided by her . He reports that on 03/24/2016 in the afternoon, pt was fatigued and slept all day, and did not eat. This worsened the next day. Pt was seen that day for a pre-op fitness exam by her PCP for ear tubes surgery, and her PCP found that she had decreased ability on cognitive tests, and that blood work was unremarkable. Today, pt is more confused, and has more labored breathing than normal, per . He states that pt has still had decreased appetite. He does state pt occasionally has "moments of clarity" which are fleeting. also reports that pt's urine has appeared clear and odorless to him. He reports that pt has been taking hydrocortisone and levothyroxine for these symptoms. He also states pt has been using her BiPAP. Pt does not take pain medication or sleeping pills. Pt has been seen here for AMS recently. LEVEL 5 CAVEAT - AMS - History Of Current Complaint Chief Complaint: EDAltMentalStatus Stated Complaint: AMS Time Seen by Provider: 03/27/16 13:04 Hx Obtained From: Family/Lead Former - Hx From Patient Unobtainable Due To: Altered Mental Status Onset/Duration: Still Present Timing: Constant, Lasting Days Severity Currently: Moderate Character: Confusion, Responsiveness, Lethargy Aggravating Factor(s): Unknown Alleviating Factor(s): Nothing - Allergies/Home Medications Allergies/Adverse Reactions: Allergies Allergy/AdvReac Type Severity Reaction Status Date / Time No Known Allergies Allergy Verified 01/28/16 15:11 PMH/Surg Hx/FS Hx/Imm Hx Endocrine/Hematology History: Reports: Hx Anticoagulant Therapy Cardiovascular History: Reports: Hx Hypertension, Other Cardiovascular Problems/ Disorders - A fib Respiratory History: Reports: Hx Sleep Apnea - home BIPAP GI History: Reports: Other GI Disorders - distended rectum History: Reports: Other Problems/Disorders - urine retention- flomax , NEUROGENIC BLADDER Musculoskeletal History: Reports: Hx Back Problems - cervical neck surgery 2001 , Other Musculoskeletal History - MS Sensory History: Reports: Hx Contacts or Glasses Opthamlomology History: Reports: Hx Contacts or Glasses Neurological History: Reports: Other Neuro Impairments/Disorders - MULTIPLE SCLEROSIS dx 1975 Psychiatric History: Reports: Hx Anxiety, Hx Depression - Cancer History Hx Chemotherapy: No Hx Radiation Therapy: No Hx Palliative Cancer Treatment: No - Surgical History Surgery Procedure, Year, and Place: INGUINAL CYST REPAIR, cervical NECK SURGERY 2001. 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 Denies: Hx Clostridium Difficile, Hx Hepatitis, Hx Human Immunodeficiency Virus (HIV), Hx of Known/Suspected MRSA, Hx Shingles, Hx Tuberculosis, History Other Infectious Disease, Traveled Outside the [place] in Last 30 Days - Family History Known Family History: Positive: Cardiac Disease - CHF, CAD, Other - CVA - Social History Alcohol Use: None Alcohol Amount: 1 drink Hx Substance Use: No Substance Use Type: Reports: None Hx Tobacco Use: No Smoking Status (MU): Never Smoked Tobacco Have You Smoked in the Last Year: No Review of Systems - ROS Summary Review of Systems Summary: LEVEL 5 CAVEAT - AMS Positive: Fatigue Positive: Other - decreased appetite Neurological: Other - AMS All Other Systems Reviewed And Are Negative: No Physical Exam - Summary Physical Exam Summary: VITAL SIGNS: Reviewed. GENERAL: Patient is an obese female who is lying comfortable in the stretcher. Patient is not in any acute respiratory distress. HEAD AND FACE: No signs of trauma. No ecchymosis, hematomas or skull depressions. EYES: PERRLA, EOMI x 2, EARS: Positive hearing loss MOUTH: Dry nasal and oral [place] NECK: Supple, trachea is midline, no adenopathy, no JVD, no carotid bruit, no c- spine tenderness, neck with full ROM. No meningeal signs, no Kernig's or brudzinskis signs. CHEST: Symmetric, no tenderness at palpation LUNGS: Clear to auscultation bilaterally. No wheezing or crackles. CVS: Regular rate and rhythm, S1 and S2 present, no murmurs or gallops appreciated. ABDOMEN: Soft, non-tender. No signs of distention. No rebound no guarding, and no masses palpated. Bowel sounds are normal. EXTREMITIES: FROM in all major joints, no edema, no cyanosis or clubbing. NEURO: Alert but not orienteds. SKIN: Dry and warm Triage Information Reviewed: Yes Vital Signs On Initial Exam: Initial Vitals Temp Pulse Resp BP Pulse Ox 95.9 F 50 12 132/93 99 03/27/16 12:50 03/27/16 12:50 03/27/16 12:50 03/27/16 12:50 03/27/16 12:50 Vital Signs Reviewed: Yes Completion Of Physical Exam Limited Due To: Altered Mental Status, Level 5 Diagnostics - Vital Signs Vital Signs Temp Pulse Resp BP Pulse Ox 03/27/16 12:50 95.9 F 50 12 132/93 99 - Laboratory Result Diagrams: 03/27/16 13:30 03/27/16 13:30 Lab Statement: Any lab studies that have been ordered have been reviewed, and results considered in the medical decision making process. - Radiology CXR Radiology Interpretation Completed By: Radiologist - IMPRESSION: CARDIOMEGALY WITH INTERSTITIAL EDEMA AND BILATERAL PLEURAL EFFUSIONS. - CT Brain CT CT Interpretation Completed By: Radiologist - IMPRESSION: NO INTRACRANIAL MASS OR HEMORRHAGE IS NOTED. - EKG 13:05 Cardiac Rate: Bradycardia - at 51 bpm EKG Rhythm: Sinus Bradycardia EKG Interpretation: T wave inversion in V4-V6, I, and aVL Altered Mental Statu Course/Dx - Course Assessment/Plan: Patient is a 71-year-old female presenting to the ED with a CC of AMS. Patient is unable to answer questions, so history is provided by her . He reports that on 03/24/2016 in the afternoon, pt was fatigued and slept all day, and did not eat. This worsened the next day. Pt was seen that day for a pre-op fitness exam by her PCP for ear tubes surgery, and her PCP found that she had decreased ability on cognitive tests, and that blood work was unremarkable. Today, pt is more confused, and has more labored breathing than normal, per . He states that pt has still had decreased appetite. He does state pt occasionally has "moments of clarity" which are fleeting. also reports that pt's urine has appeared clear and odorless to him. He reports that pt has been taking hydrocortisone and levothyroxine for these symptoms. He also states pt has been using her BiPAP. Pt does not take pain medication or sleeping pills. BW WNL except for glucose of 107, chloride of 96, and magnesium of 1.8. CT brain shows no acute intracranial pathology. CXR shows no acute pathology. EKG shows sinus bradycardia without ST elevation. ABG shows a pCO2 of 55, however the pH is 7.38. The pt is on 2L O2 and she is saturating at 100%. Therefore at this time I do not believe the pt needs BiPAP. However, the pt continues to be confused with AMS. Therefore I discussed my PE and findings with Dr. Bear, who will admit the patient for further work up and management. She will reassess her breathing status, and she will determine if she needs a breathing machine in the future. Pt is hemodynamically stable, and she is alert but not oriented. - Diagnoses Differential Diagnosis/HQI/PQRI: CVA, Hypoxia, Intracranial Bleed, Medication Reaction, Metabolic Disorder, Seizure, TIA Discharge Diagnoses: Mental status alteration, Confusion, Hypercapnia - Provider Notifications Discussed Care Of Patient With: Dr. Bear (hospitalist) at 14:10 - agrees to admit Discharge - Discharge Plan Condition: Stable Disposition: ADMITTED TO [facility] The documentation as recorded by the Sidney bowles Erika accurately reflects the service I personally performed and the decisions made by me, Walter Andrew MD.
[2016-03-27 16:31] LABS: B Type Natriuretic Peptide 284 pg/mL
[2016-03-27] MEDS ORDERED: Ondansetron INJ* 2 MG/ML VIAL IV PRN (16:34)
--- NOTE | 2016-03-27 17:31 | PN ---
Hospitalist Progress Note HOSPITALIST ADDENDUM Case reviewed and d/w Jun [facility]. Mrs. Ann is a 71 yo F with PMH of MS, adrenal insufficiency, known to me from prior admissions, who presents to ED with altered MS. Labs reviewed. Suspect etiology is likely infectious at this time. Agree with current management.
[2016-03-27] MEDS ORDERED: Hydrocortisone TAB* 5 MG PO SCH (18:00)
[2016-03-27] MEDS: Rivaroxaban TAB(*) 20 MG TAB PO SCH (18:02)
[2016-03-27] MEDS: PTO: Glatiramer(NF) 20 MG/ML 1 ML SYRINGE SUBCUT SCH (18:03)
[2016-03-27] MEDS: Ciprofloxacin 400MG IVPREMIX(* 400 MG/200 ML BAG IVPB SCH (18:03)
[2016-03-27] MEDS ORDERED: Magnesium Oxide TAB* 400 MG PO ONE (18:45)
[2016-03-27] MEDS ORDERED: Acetaminophen TAB* 325 MG PO PRN (20:36)
[2016-03-27] MEDS: NS 0.9% 1000 ML* 1,000 ML IV SCH (21:03)
[2016-03-27] MEDS: proPAFENone TAB* 150 MG PO SCH (21:04)
[2016-03-27] MEDS: Baclofen TAB* 10 MG PO SCH (21:06)
--- NOTE | 2016-03-27 21:34 | HP ---
ADMISSION HISTORY AND PHYSICAL: DATE OF ADMISSION: 03/27/16 PRIMARY CARE PROVIDER: Dr. Ellen Reynolds. ADMITTING PROVIDER: ELEANOR Fair SUPERVISING PHYSICIAN: Dr. Melissa Singh.* (DICTATED BY ELEANOR FAIR) CHIEF COMPLAINT: Altered mental status. 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 Cortez, who has had multiple prior hospitalizations with a complaint of altered mental status. The patient was seen by her primary care provider on Friday for a preoperative exam for placement of ET tubes by Dr. Ruffin and at that time, she was noted to be more lethargic. Labs were drawn at that time, which were reportedly unremarkable and no intervention. Dr. Reynolds recommended to her to bring her to the emergency department if her symptoms do not improve. Sounds like she has been having waxing and waning symptoms of depressed mental status, mostly just seems lethargic and has had poor appetite. No focal symptoms. No complaints of shortness of breath, chest pain, abdominal pain. No complaints of nausea. No vomiting or diarrhea. The patient has been compliant with her home BiPAP therapy at night, but has not been using it with naps during the day. She has been compliant with the hydrocortisone as prescribed by Dr. Cortez as well as the levothyroxine. There has been no recent dosage changes. The patient does have neurogenic bladder secondary to her multiple sclerosis and her straight catheterizes her twice daily. He uses a clean technique, but does have some technical difficulty completing this and is unable to maintain it in a sterile fashion. She has had frequent urinary tract infections and has required hospitalization for those. PAST MEDICAL HISTORY: 1. Multiple sclerosis - wheelchair bound at baseline, cared for by her . 2. Obstructive sleep apnea, compliant with BiPAP therapy. 3. Atrial fibrillation, chronically anticoagulated with Xarelto and rhythm controlled with Rythmol. 4. Neurogenic bladder requiring straight catheterization twice daily. 5. Subclinical hypothyroidism. 6. Central adrenal insufficiency, on hydrocortisone replacement followed by Dr. Dale Cortez. HOME MEDICATIONS: 1. Atorvastatin 10 mg p.o. daily. 2. Baclofen 45 mg p.o. b.i.d. 3. Calcium with vitamin D supplement 1 tablet p.o. daily. 4. Clotrimazole with betamethasone cream applied topically twice daily as needed. 5. Ferrous sulfate 325 mg p.o. on Friday, Friday, Fridays. 6. Copaxone 20 mg subcu each evening. 7. Hydrocortisone cream 2.5% applied topically twice daily as needed. 8. Hydrocortisone tablets 10 mg in the morning followed by 5 mg at lunch and 2.5 mg in the evening. 9. Ipratropium nasal spray 1 spray in both nostrils twice daily. 10. Levothyroxine 50 mcg p.o. daily. 11. Miconazole 2% powder applied topically daily as needed. 12. Multivitamin 1 tablet p.o. daily. 13. Xarelto 20 mg p.o. daily. 14. VESIcare 10 mg p.o. daily. 15. Rythmol 150 mg p.o. q.8 hours. FAMILY HISTORY: Father of heart failure. Mother from CVA. SOCIAL HISTORY: The patient lives at home with her . She is wheelchair bound at baseline. She is DNR/DNI and no significant history of alcohol use or regular tobacco use. REVIEW OF SYSTEMS: The patient provides a limited review of systems, but denies any pain or difficulty breathing. No complaints of nausea. PHYSICAL EXAMINATION GENERAL: This is a pleasant elderly female who is resting comfortably in the hospital bed. She is accompanied by her . She does arouse with direct physical stimulation and able to answer some basic questions appropriately. VITAL SIGNS: Temperature 98.1 degrees Fahrenheit, pulse 51 beats per minute, respiratory rate 12 per minute, oxygen saturation 100% on room air, and blood pressure 156/69 mmHg. HEENT: Head is normocephalic, atraumatic. Mucous membranes pink and moist. RESPIRATORY: Complete exam is difficult to obtain, but seems to be clear to auscultation without wheezes, crackles, or rhonchi. CARDIOVASCULAR: Heart has a regular rate and rhythm without murmurs, rubs, or gallops. ABDOMEN: Soft and nontender to palpation. EXTREMITIES: The patient has compression stockings on. She does have some trace to 1+ edema in the right lower extremity. Left lower extremity seems to be free of edema. PSYCH: The patient is lethargic, but does arouse to physical stimulation and seems to be oriented with basic questions. NEUROLOGIC: No focal neurologic deficits. The patient is lethargic and sleeps when she is not being directly stimulated in conversation, but does arouse and able to answer basic questions appropriately. LABORATORY EVALUATION: CBC shows a white blood cell count of 7800, hemoglobin of 13.1 g/dL, and a platelet count of 184,000. ABG shows a pH of 7.38, PCO2 of 55, PO2 131, and bicarb of 29.4. Comprehensive metabolic panel shows a sodium of 133 mmol/L, potassium 4.4 mmol/L, serum bicarb of 32, BUN of 18, creatinine 0.88. Random glucose is 107 mg/dL. Lactic acid normal at 1.2. Magnesium slightly low at 1.8. Transaminases and total bilirubin within normal limits. Troponin negative at 0.02. BNP mildly elevated at 287. TSH was normal at 2.97. Urinalysis is significant for 3+ leukocyte esterase and 3+ white blood cells and otherwise unremarkable. Toxicology screen is negative. IMAGING: Chest x-ray suggests perhaps some mild pulmonary edema, bilateral pleural effusions. CT of the brain shows no acute disease. EKG shows a normal sinus rhythm. ASSESSMENT AND PLAN: This is a 71-year-old female with history of multiple sclerosis leaving her wheelchair bound at baseline as well as recent diagnosis of central adrenal insufficiency, on hydrocortisone therapy as well as hypothyroidism, atrial fibrillation for which she is anticoagulated with Xarelto , and obstructive sleep apnea for which she is compliant with BiPAP therapy, presents with altered mental status. 1. Unspecified encephalopathy - based on acute presentation and rather insidious onset, it seems that urinary tract infection is the most likely cause of her depressed mental state at this time. She does have 3+ leukocyte esterase and white blood cells appreciated on her urine. No other focal exam findings. Ammonia and PCO2 are within normal limits. The patient does not have any focal neurologic symptoms. We will empirically start on ciprofloxacin based on prior micro reports. The last urinary tract infection among several others was Citrobacter. Most recent micro from about a month ago shows that she was resistant to ceftriaxone. Prior to that, she was sensitive to ceftriaxone, but has always had good sensitivity to quinolones. 2. Chronic urinary retention secondary to neurogenic bladder related to her multiple sclerosis - the patient's has been straight catheterizing her at home. She has been having frequent urinary tract infections despite his efforts to maintain a clean technique. We will place a Perez catheter at this time. Perhaps, it will be better that she maintain an indwelling Perez and has home nursing change it on a monthly basis rather than her attempting to straight catheterize her twice daily. May also consider suppressive antibiotic therapy. It seems that both of these strategies have been employed in the past with similar results leading to frequent urinary tract infections. 3. Severe obstructive sleep apnea - continue BiPAP therapy during her hospital stay here, but no evidence of CO2 retention contributing to her current presentation. 4. Multiple sclerosis - continue her Copaxone. 5. Hypomagnesemia - we will replace appropriately. 6. Atrial fibrillation - the patient is in a sinus rhythm at the time of admission. Continue Xarelto and Rythmol. 7. Code status: The patient is DNR/DNI. 8. Healthcare proxy is the patient's , Jero. 9. DVT prophylaxis: The patient is chronically anticoagulated on Xarelto. DISPOSITION: The patient is being admitted under observation status for altered mental status, presumed urinary tract infection. ELEANOR FAIR CC: Dr. Ellen Reynolds * [id number]/[facility] #: [id number] SUSAN
[2016-03-27] MEDS ORDERED: Hydrocortisone INJ* 100 MG VIAL IV ONE (21:50)
--- NOTE | 2016-03-27 21:50 | PN ---
Hospitalist Progress Note Patient became hypotensive and borderline hypothermic. She was complaining of a headache. Hypotension persists on 30 min recheck. Ordered NS to start at 100 ml/h and stress dose of steroid. Ordered one time 100mg IV hydrocortisone and 50 mg q8h x additional 3 doses.
[2016-03-28] MEDS: Ciprofloxacin 400MG IVPREMIX(* 400 MG/200 ML BAG IVPB SCH ×2 (05:43→17:34)
[2016-03-28] MEDS: proPAFENone TAB* 150 MG PO SCH ×3 (05:48→20:36)
[2016-03-28] MEDS: Levothyroxine TAB* 50 MCG TAB PO SCH (05:48)
[2016-03-28 06:09] LABS: Hematocrit 37 % (35-47); Hemoglobin 12.2 g/dl (12.0-16.0); Mean Corpuscular HGB Conc 33 g/dl (31-36); Mean Corpuscular Hemoglobin 32 pg (27-31); Mean Corpuscular Volume 97 fL (80-97); Mean Platelet Volume 10 um3 (7.4-10.4); Red Blood Count 3.84 10^6/ul (4.0-5.4); Red Cell Distribution Width 16 % (10.5-15); White Blood Count 5.1 10^3/ul (3.5-10.8)
[2016-03-28 06:20] LABS: BUN/Creatinine Ratio 19.8 (8-20); Calcium 9.5 mg/dL (8.6-10.3); EGFR African American 84.1 (>60); EGFR Non-African American 65.4 (>60); Potassium 4.2 mmol/L (3.5-5.0)
[2016-03-28] MEDS ORDERED: Hydrocortisone TAB* 10 MG PO SCH (08:00)
[2016-03-28] MEDS: Atorvastatin* 10 MG TAB PO SCH (08:49)
[2016-03-28] MEDS: Baclofen TAB* 10 MG PO SCH ×2 (08:49→20:37)
[2016-03-28] MEDS: Hydrocortisone INJ* 100 MG VIAL IV SCH ×2 (08:50→17:32)
[2016-03-28] MEDS: NS 0.9% 1000 ML* 1,000 ML IV SCH ×3 (08:51→22:29)
[2016-03-28] MEDS: CMCS: Solifenacin(NF) 5 MG TAB PO SCH (08:51)
[2016-03-28] MEDS ORDERED: Hydrocortisone TAB* 5 MG PO SCH (12:00)
--- NOTE | 2016-03-28 14:07 | PN ---
Subjective Date of Service: 03/28/16 Interval History: Patient seen and examined at bedside. Pt is alert and confused, she is able to answer a few questions with yes or no answer. Pt's states that she was initially doing well after her last hospitalization, but she has declined over the last few days. Per Pt's she has mostly been sleeping. Tele: Sinus rhythm, rate 50-60's. Family History: Unchanged from Admission Social History: Unchanged from Admission Past Medical History: Unchanged from Admission Objective Active Medications: Acetaminophen (Tylenol Tab*) 650 mg PO Q6H PRN Reason: pain and fever Atorvastatin Calcium (Lipitor*) 10 mg PO DAILY [facility] Baclofen (Lioresal Tab*) 45 mg PO BID [facility] Glatiramer Acetate (Copaxone(Nf)) 20 mg SUBCUT QPM [facility] Hydrocortisone Sodium Succinate (Solu-Cortef*) 50 mg IV Q8H [facility] Stop: 03/29/16 01:01 Ciprofloxacin/Dextrose (Cipro 400 Mg Ivpremix(*)) 400 mg in 200 mls @ 200 mls/ hr IVPB Q12H [facility] Sodium Chloride (Ns 0.9% 1000 Ml*) 1,000 mls @ 100 mls/hr IV PER RATE [facility] Levothyroxine Sodium (Synthroid Tab*) 50 mcg PO DAILY@0600 [facility] Ondansetron HCl (Zofran Inj*) 4 mg IV Q4H PRN Reason: NAUSEA/VOMITING Propafenone HCl (Rythmol*) 150 mg PO Q8HR [facility] Rivaroxaban (Xarelto (*)) 20 mg PO DAILY@1700 [facility] Solifenacin (Vesicare(Nf)) 10 mg PO DAILY [facility] Vital Signs 03/27/16 03/27/16 03/28/16 21:43 23:33 00:21 Temperature 96.1 F Pulse Rate 46 Respiratory 16 16 Rate Blood Pressure 122/63 132/82 (mmHg) O2 Sat by Pulse 98 Oximetry 03/28/16 03/28/16 03/28/16 04:22 07:49 08:00 Temperature 97.2 F 97.2 F Pulse Rate 61 58 Respiratory 16 20 20 Rate Blood Pressure 147/74 101/64 (mmHg) O2 Sat by Pulse 97 96 Oximetry 03/28/16 11:35 Temperature 99.1 F Pulse Rate 69 Respiratory 18 Rate Blood Pressure 151/69 (mmHg) O2 Sat by Pulse 98 Oximetry Oxygen Devices in Use Now: None Appearance: NAD, laying in bed Eyes: No Scleral Icterus, PERRLA Ears/Nose/Mouth/Throat: NL Teeth, Lips, Gums, Mucous Membranes Moist Neck: NL Appearance and Movements; NL JVP, Trachea Midline Respiratory: Symmetrical Chest Expansion and Respiratory Effort, Clear to Auscultation - , diminished Cardiovascular: NL Sounds; No Murmurs; No JVD, RRR Abdominal: NL Sounds; No Tenderness; No Distention Extremities: - - Trace bilateral LE edema Neurological: - - Alert and only able to answer yes or no questions. Unable to determine orientation. Pt with garbled speach Lines/Tubes/Other Access: Clean, Dry and Intact Perez - patent, draining clear yellow urine, Clean, Dry and Intact Peripheral IV - site benign Nutrition: Taking PO's Result Diagrams: 03/28/16 05:33 03/28/16 05:33 Assess/Plan/Problems-Billing Assessment: Ms. 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 - Patient Problems (1) Altered mental status Code(s): R41.82 - ALTERED MENTAL STATUS, UNSPECIFIED SNOMED Code(s): 336194835 Comment: - Pt with lethargy and slowed mentation, this is consistent with presentation for when she has an infection. - Brain CT shows no acute findings - Pt has a UTI (2) UTI (urinary tract infection) Comment: - History of neurogenic bladder, Pt's does self catheterization at home - Urine culture shows Staph. Aureus - Continue Cipro for now, while we await culture results (3) Electrolyte abnormality Code(s): E87.8 - OTH DISORDERS OF ELECTROLYTE AND FLUID BALANCE, NEC SNOMED Code(s): 404362602 Comment: Hypomagnesium: On admission, received replacement yesterday. Lab pending for today (4) Hypothyroidism Code(s): E03.9 - HYPOTHYROIDISM, UNSPECIFIED SNOMED Code(s): 65146772 Comment: - TSH 2.97 - Continue Levothyroxine (5) Atrial fibrillation Code(s): I48.91 - UNSPECIFIED ATRIAL FIBRILLATION SNOMED Code(s): 57061155 Comment: - Not currently in atrial fibrillation. - Continue propafenone and rivaroxaban. (6) Multiple sclerosis Code(s): G35 - MULTIPLE SCLEROSIS SNOMED Code(s): 74646927 Comment: Continue glatiramer and baclofen. (7) Neurogenic bladder Code(s): N31.9 - NEUROMUSCULAR DYSFUNCTION OF BLADDER, UNSPECIFIED SNOMED Code (s): 267438985 Comment: - Continue Vesicare. At home, patient on BID straight catheterization regimen. - Perez placed in the ED, continue for now (8) Obstructive sleep apnea Code(s): G47.33 - OBSTRUCTIVE SLEEP APNEA (ADULT) (PEDIATRIC) SNOMED Code(s): 85685098 Comment: - BiPAP at night and when napping. (9) Adrenal insufficiency Code(s): E27.40 - UNSPECIFIED ADRENOCORTICAL INSUFFICIENCY SNOMED Code(s): 235715829 Comment: - Confirmed central adrenal insufficiency - Continue stress dose steroids for now - Will Resume home Hydrocortisone dosing once able (10) DVT prophylaxis Code(s): NQX9764 - SNOMED Code(s): 856425201 (11) DNR (do not resuscitate) Status and Disposition: Inpatient. Plan to discharge to home when medically stable.
[2016-03-28] MEDS: Rivaroxaban TAB(*) 20 MG TAB PO SCH (17:38)
[2016-03-28] MEDS: PTO: Glatiramer(NF) 20 MG/ML 1 ML SYRINGE SUBCUT SCH (18:01)
[2016-03-29] MEDS ORDERED: diPHENhydraMINE PO* 25 MG ONE (00:11)
[2016-03-29] MEDS ORDERED: diPHENhydraMINE IV* 50 MG/ML 1 ml VIAL (BENADRYL) ONE (00:12)
[2016-03-29] MEDS ORDERED: LORazepam INJ* 2 MG/ML 1 ML VIAL ONE (00:55)
[2016-03-29] MEDS ORDERED: LORazepam INJ* 2 MG/ML 1 ML VIAL IV PUSH ONE (01:00)
[2016-03-29] MEDS: Hydrocortisone INJ* 100 MG VIAL IV SCH ×3 (02:00→16:55)
[2016-03-29] MEDS: NS 0.9% 1000 ML* 1,000 ML IV SCH ×4 (03:23→23:24)
[2016-03-29] MEDS: Ciprofloxacin 400MG IVPREMIX(* 400 MG/200 ML BAG IVPB SCH (05:25)
[2016-03-29] MEDS: Levothyroxine TAB* 50 MCG TAB PO SCH (05:30)
[2016-03-29] MEDS: proPAFENone TAB* 150 MG PO SCH ×3 (05:30→20:28)
[2016-03-29] MEDS: Atorvastatin* 10 MG TAB PO SCH (09:13)
[2016-03-29] MEDS: CMCS: Solifenacin(NF) 5 MG TAB PO SCH (09:14)
[2016-03-29] MEDS: Baclofen TAB* 10 MG PO SCH ×2 (09:14→20:28)
--- NOTE | 2016-03-29 09:34 | PN ---
Subjective Date of Service: 03/29/16 Interval History: Patient seen and examined at bedside. Pt 1st seen during EEG and able to wake to verbal stimuli and state name. Upon return after EEG, Pt continues to respond to verbal stimuli. Able to understand some of what Pt is saying, has some gabbled speech. Pt is oriented to person and place. Denies pain at this time. Pt notes to have "pill rolling" movements this AM while she was more lethargic after waking her up. Tele: Sinus rhythm, rate 70-80's. Family History: Unchanged from Admission Social History: Unchanged from Admission Past Medical History: Unchanged from Admission Objective Active Medications: Acetaminophen (Tylenol Tab*) 650 mg PO Q6H PRN Reason: pain and fever Atorvastatin Calcium (Lipitor*) 10 mg PO DAILY [facility] Baclofen (Lioresal Tab*) 45 mg PO BID [facility] Glatiramer Acetate (Copaxone(Nf)) 20 mg SUBCUT QPM [facility] Hydrocortisone Sodium Succinate (Solu-Cortef*) 100 mg IV Q8H [facility] Stop: 17:01 Ciprofloxacin/Dextrose (Cipro 400 Mg Ivpremix(*)) 400 mg in 200 mls @ 200 mls/ hr IVPB Q12H [facility] Sodium Chloride (Ns 0.9% 1000 Ml*) 1,000 mls @ 125 mls/hr IV PER RATE [facility] Levothyroxine Sodium (Synthroid Tab*) 50 mcg PO DAILY@0600 [facility] Ondansetron HCl (Zofran Inj*) 4 mg IV Q4H PRN Reason: NAUSEA/VOMITING Propafenone HCl (Rythmol*) 150 mg PO Q8HR [facility] Rivaroxaban (Xarelto (*)) 20 mg PO DAILY@1700 [facility] Solifenacin (Vesicare(Nf)) 10 mg PO DAILY [facility] Vital Signs 03/28/16 03/28/16 03/28/16 11:35 14:01 16:28 Temperature 99.1 F 97.3 F Pulse Rate 69 77 60 Respiratory 18 20 Rate Blood Pressure 151/69 74/36 (mmHg) O2 Sat by Pulse 98 94 97 Oximetry 03/28/16 03/28/16 03/28/16 16:34 17:27 17:44 Temperature Pulse Rate 73 Respiratory Rate Blood Pressure 82/32 86/51 98/58 (mmHg) O2 Sat by Pulse Oximetry 03/28/16 03/28/16 03/28/16 20:00 20:09 23:29 Temperature 97.2 F 97.1 F Pulse Rate 70 55 Respiratory 18 18 16 Rate Blood Pressure 123/62 75/31 (mmHg) O2 Sat by Pulse 98 98 Oximetry 03/28/16 03/28/16 03/29/16 23:35 23:48 00:17 Temperature Pulse Rate 70 Respiratory 20 Rate Blood Pressure 80/50 116/63 (mmHg) O2 Sat by Pulse 99 Oximetry 03/29/16 03/29/16 03/29/16 00:45 01:01 01:17 Temperature Pulse Rate 73 Respiratory 20 20 Rate Blood Pressure 124/43 (mmHg) O2 Sat by Pulse 96 Oximetry 03/29/16 03/29/16 03/29/16 02:01 04:02 07:05 Temperature 97.3 F Pulse Rate 68 Respiratory 20 16 14 Rate Blood Pressure 118/54 (mmHg) O2 Sat by Pulse 94 Oximetry 03/29/16 03/29/16 03/29/16 07:39 07:42 09:06 Temperature 97 F 97 F Pulse Rate 63 Respiratory 14 Rate Blood Pressure 100/48 (mmHg) O2 Sat by Pulse 95 Oximetry Oxygen Devices in Use Now: CPAP/BiPAP - While napping and at night Appearance: NAD, laying in bed Eyes: No Scleral Icterus, PERRLA Ears/Nose/Mouth/Throat: NL Teeth, Lips, Gums, - - Dry mucous membranes Neck: NL Appearance and Movements; NL JVP, Trachea Midline Respiratory: Symmetrical Chest Expansion and Respiratory Effort, Clear to Auscultation Cardiovascular: NL Sounds; No Murmurs; No JVD, RRR Abdominal: NL Sounds; No Tenderness; No Distention - Bowel sounds present Extremities: - - mild to bilateral feet Skin: No Rash or Ulcers Neurological: NL Muscle Strength and Tone, - - Alert and Oriented to Persona and Place Lines/Tubes/Other Access: Clean, Dry and Intact Peripheral IV - site benign Nutrition: Taking PO's Result Diagrams: 03/28/16 05:33 03/28/16 05:33 Assess/Plan/Problems-Billing Assessment: Ms. 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 - Patient Problems (1) Altered mental status Code(s): R41.82 - ALTERED MENTAL STATUS, UNSPECIFIED SNOMED Code(s): 701153243 Comment: - Pt with lethargy and slowed mentation, this is consistent with presentation for when she has an infection. - Improved mentation and less lethargic today - Brain CT shows no acute findings - EEG shows slowing, no seizure activity - Pt has a UTI (2) UTI (urinary tract infection) Comment: - History of neurogenic bladder, Pt's does self catheterization at home - Urine culture shows Staph. Aureus, MRSA - Will switch ABX to Bactrim (3) Electrolyte abnormality Code(s): E87.8 - OTH DISORDERS OF ELECTROLYTE AND FLUID BALANCE, NEC SNOMED Code(s): 719049830 Comment: Hypomagnesium: Resolved (4) Hypothyroidism Code(s): E03.9 - HYPOTHYROIDISM, UNSPECIFIED SNOMED Code(s): 43123695 Comment: - TSH 2.97 - Continue Levothyroxine (5) Atrial fibrillation Code(s): I48.91 - UNSPECIFIED ATRIAL FIBRILLATION SNOMED Code(s): 00192902 Comment: - Not currently in atrial fibrillation. - Continue propafenone and rivaroxaban. (6) Multiple sclerosis Code(s): G35 - MULTIPLE SCLEROSIS SNOMED Code(s): 89692370 Comment: Continue glatiramer and baclofen. (7) Neurogenic bladder Code(s): N31.9 - NEUROMUSCULAR DYSFUNCTION OF BLADDER, UNSPECIFIED SNOMED Code (s): 984197684 Comment: - Continue Vesicare. At home, patient on BID straight catheterization regimen. - Perez placed in the ED, continue for now - Discussed case with Urology on how to help avoid UTI's. They recommend making sure Pt's uses sterile technique and a new sterile kit each time. Also to consider prophylactic ABX to help prevent UTIs. They don't feel the Pt would benefit from an indwelling catheter or suprapubic catheter. - Discussed with Pts how he performs st. cath, he describes the proper process and states that he uses a new kit each time. (8) Obstructive sleep apnea Code(s): G47.33 - OBSTRUCTIVE SLEEP APNEA (ADULT) (PEDIATRIC) SNOMED Code(s): 81127662 Comment: - BiPAP at night and when napping. (9) Adrenal insufficiency Code(s): E27.40 - UNSPECIFIED ADRENOCORTICAL INSUFFICIENCY SNOMED Code(s): 694735016 Comment: - Confirmed central adrenal insufficiency - Continue stress dose steroids for now, but will decrease to 50 mg Q8H (down from 100) - Will Resume home Hydrocortisone dosing once able (10) DVT prophylaxis Code(s): [id number] - SNOMED Code(s): 137814734 (11) DNR (do not resuscitate) Status and Disposition: Inpatient. Plan to discharge to home when medically stable.
[2016-03-29] MEDS: PTO: Glatiramer(NF) 20 MG/ML 1 ML SYRINGE SUBCUT SCH (16:54)
[2016-03-29] MEDS: Rivaroxaban TAB(*) 20 MG TAB PO SCH (16:54)
[2016-03-29] MEDS: Sulfamethox/Trimethoprim DS 800/160* TAB PO SCH (20:27)
[2016-03-29] MEDS ORDERED: Polyethylene Glycol 3350* 17 GM PACKET PO ONE (21:20)
--- NOTE | 2016-03-29 21:21 | EEG ---
ELECTROENCEPHALOGRAPHY: DATE OF STUDY: 03/29/16 DATE OF DICTATION: 03/29/16 PATIENT OF: Dr. Arreola. HISTORY: This 71-year-old woman being evaluated for lethargy and then beginning having spastic arm movements and pill-rolling movements. Ativan was given. MEDICATIONS: Include: 1. Zofran. 2. Synthroid. 4. Cipro. 5. Xarelto. 6. Rythmol. 7. Solifenacin. 8. Hydrocortisone. 9. Lioresal. 10. Lipitor. INTERPRETATION: With the patient awake, background cerebral activity consists of moderate amplitude 6 to 7 Hz rhythm. Muscle and movement artifact are noted throughout. No epileptiform potentials, focal abnormalities or major asymmetries of background are noted. The patient never falls asleep. IMPRESSION: This awake EEG is abnormal for of diffuse slowing of background consistent with an encephalopathy, but not specific as to etiology. Medications patient has received including Ativan can contribute to some of the slowing. No seizure potentials are noted during this tracing. [id number]/[facility] #: [id number] [facility]
[2016-03-29] MEDS: Docusate CAP* 100 MG PO SCH (21:28)
[2016-03-30] MEDS: Hydrocortisone INJ* 100 MG VIAL IV SCH ×3 (00:54→17:34)
[2016-03-30] MEDS ORDERED: ALPRAZolam TAB* 0.25 MG PO ONE (04:03)
[2016-03-30] MEDS: proPAFENone TAB* 150 MG PO SCH ×3 (05:32→22:15)
[2016-03-30] MEDS: Levothyroxine TAB* 50 MCG TAB PO SCH (05:32)
[2016-03-30] MEDS: NS 0.9% 1000 ML* 1,000 ML IV SCH (07:25)
[2016-03-30] MEDS: CMCS: Solifenacin(NF) 5 MG TAB PO SCH (07:29)
[2016-03-30] MEDS: Atorvastatin* 10 MG TAB PO SCH (07:29)
[2016-03-30] MEDS: Baclofen TAB* 10 MG PO SCH ×2 (07:29→20:30)
[2016-03-30] MEDS: Sulfamethox/Trimethoprim DS 800/160* TAB PO SCH (07:29)
[2016-03-30] MEDS: Docusate CAP* 100 MG PO SCH ×2 (07:29→20:32)
--- NOTE | 2016-03-30 10:21 | PN ---
Subjective Date of Service: 03/30/16 Interval History: Patient alert and awake, garbled speech, per her speech was better yesterday but overall he states she is much better than when she was admitted and appears to be progressing well. Patient states over and over "I want to go home, I want to go home". Doesn't answer other questions Family History: Unchanged from Admission Social History: Unchanged from Admission Past Medical History: Unchanged from Admission Objective Active Medications: Acetaminophen (Tylenol Tab*) 650 mg PO Q6H PRN PRN Reason: pain and fever Last Admin: 03/27/16 21:04 Dose: 650 mg Atorvastatin Calcium (Lipitor*) 10 mg PO DAILY [facility] Last Admin: 03/30/16 07:29 Dose: 10 mg Baclofen (Lioresal Tab*) 45 mg PO BID [facility] Last Admin: 03/30/16 07:29 Dose: 45 mg Docusate Sodium (Colace Cap*) 100 mg PO BID [facility] Last Admin: 03/30/16 07:29 Dose: 100 mg Glatiramer Acetate (Copaxone(Nf)) 20 mg SUBCUT QPM [facility] Last Admin: 03/29/16 16:54 Dose: 20 mg Hydrocortisone Sodium Succinate (Solu-Cortef*) 50 mg IV Q8H [facility] Stop: 03/30/16 17:01 Last Admin: 03/30/16 09:09 Dose: 50 mg Sodium Chloride (Ns 0.9% 1000 Ml*) 1,000 mls @ 75 mls/hr IV PER RATE [facility] Last Admin: 03/30/16 07:25 Dose: 75 mls/hr Levothyroxine Sodium (Synthroid Tab*) 50 mcg PO DAILY@0600 [facility] Last Admin: 03/30/16 05:32 Dose: 50 mcg Ondansetron HCl (Zofran Inj*) 4 mg IV Q4H PRN PRN Reason: NAUSEA/VOMITING Propafenone HCl (Rythmol*) 150 mg PO Q8HR [facility] Last Admin: 03/30/16 05:32 Dose: 150 mg Rivaroxaban (Xarelto (*)) 20 mg PO DAILY@1700 [facility] Last Admin: 03/29/16 16:54 Dose: 20 mg Solifenacin (Vesicare(Nf)) 10 mg PO DAILY [facility] Last Admin: 03/30/16 07:29 Dose: 10 mg Trimethoprim/Sulfamethoxazole (Bactrim Ds 800/160 Tab*) 1 tab PO BID [facility] Last Admin: 03/30/16 07:29 Dose: 1 tab Vital Signs 03/29/16 03/29/16 03/29/16 11:58 15:33 20:00 Temperature 96.9 F 97.5 F Pulse Rate 81 86 Respiratory 20 16 18 Rate Blood Pressure 158/73 161/73 (mmHg) O2 Sat by Pulse 98 95 Oximetry 03/29/16 03/30/16 03/30/16 20:09 00:01 03:59 Temperature 96.4 F 96.3 F 97.9 F Pulse Rate 96 92 93 Respiratory 18 16 16 Rate Blood Pressure 150/59 139/62 145/74 (mmHg) O2 Sat by Pulse 98 97 99 Oximetry 03/30/16 03/30/16 03/30/16 04:18 06:18 07:15 Temperature Pulse Rate Respiratory 22 20 20 Rate Blood Pressure (mmHg) O2 Sat by Pulse Oximetry 03/30/16 03/30/16 08:00 08:20 Temperature 97.5 F Pulse Rate 90 Respiratory 18 Rate Blood Pressure 162/77 (mmHg) O2 Sat by Pulse 93 Oximetry Oxygen Devices in Use Now: CPAP/BiPAP - While napping and at night Appearance: chronically ill appearing female laying in bed alert and awake, follows some commands, garbled speech. Eyes: No Scleral Icterus, PERRLA Ears/Nose/Mouth/Throat: NL Teeth, Lips, Gums, Mucous Membranes Moist Neck: NL Appearance and Movements; NL JVP Respiratory: Symmetrical Chest Expansion and Respiratory Effort, Clear to Auscultation Cardiovascular: NL Sounds; No Murmurs; No JVD, RRR, - - 1+ LE edema bl LE Abdominal: NL Sounds; No Tenderness; No Distention Extremities: No Clubbing, Cyanosis Lines/Tubes/Other Access: Clean, Dry and Intact Peripheral IV Nutrition: Taking PO's Result Diagrams: 03/28/16 05:33 03/28/16 05:33 Assess/Plan/Problems-Billing Assessment: Ms. 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 - Patient Problems (1) Altered mental status Comment: - Pt with lethargy and slowed mentation, this is consistent with past presentation for when she has an infection, per slowly improving - Brain CT shows no acute findings - EEG shows slowing, no seizure activity - Pt has a UTI (2) Adrenal insufficiency Comment: - Confirmed central adrenal insufficiency - Continue stress dose steroids for now, but will decrease to 25 mg Q8H (down from 50) - Will Resume home Hydrocortisone dosing once able (3) Multiple sclerosis Comment: Continue glatiramer and baclofen. (4) Electrolyte abnormality Comment: Hypomagnesium: Resolved (5) Hypothyroidism Comment: - TSH 2.97 - Continue Levothyroxine (6) Atrial fibrillation Comment: - Not currently in atrial fibrillation. - Continue propafenone and rivaroxaban. (7) Neurogenic bladder Comment: - Continue Vesicare. At home, patient on BID straight catheterization regimen. - Perez placed in the ED, continue for now - Discussed case with Urology on how to help avoid UTI's. They recommend making sure Pt's uses sterile technique and a new sterile kit each time. Also to consider prophylactic ABX to help prevent UTIs. They don't feel the Pt would benefit from an indwelling catheter or suprapubic catheter. - Discussed with Pts how he performs st. cath, he describes the proper process and states that he uses a new kit each time. (8) Obstructive sleep apnea Comment: - BiPAP at night and when napping. (9) DNR (do not resuscitate) (10) DVT prophylaxis Comment: Continue Xarelto. Status and Disposition: Inpatient. Plan to discharge to home when medically stable.
[2016-03-30] MEDS ORDERED: Bisacodyl SUPP* 10 MG SUPP PR PRN (10:34)
[2016-03-30] MEDS ORDERED: Bisacodyl SUPP* 10 MG SUPP ONE (10:36)
[2016-03-30] MEDS: Rivaroxaban TAB(*) 20 MG TAB PO SCH (17:33)
[2016-03-30] MEDS: PTO: Glatiramer(NF) 20 MG/ML 1 ML SYRINGE SUBCUT SCH (17:34)
[2016-03-30 18:42] LABS: Hematocrit 33 % (35-47); Hemoglobin 10.8 g/dl (12.0-16.0); Mean Corpuscular HGB Conc 33 g/dl (31-36); Mean Corpuscular Hemoglobin 32 pg (27-31); Mean Corpuscular Volume 97 fL (80-97); Mean Platelet Volume 10 um3 (7.4-10.4); Red Blood Count 3.39 10^6/ul (4.0-5.4); Red Cell Distribution Width 16 % (10.5-15); White Blood Count 11.1 10^3/ul (3.5-10.8)
[2016-03-30] MEDS ORDERED: Furosemide IV* 10 MG/ML 10 ML VIAL (100 MG) IV ONE ×2 (18:42→18:43)
[2016-03-30] MEDS ORDERED: Furosemide IV* 10 MG/ML 2 ML VIAL (20 MG) IV ONE (18:43)
[2016-03-30] MEDS ORDERED: Furosemide IV* 10 MG/ML 2 ML VIAL (20 MG) ONE (18:47)
[2016-03-30 18:48] LABS: Comments Flag Yes
[2016-03-30 18:54] LABS: BUN/Creatinine Ratio 18.8 (8-20); Calcium 8.8 mg/dL (8.6-10.3); EGFR African American 91.5 (>60); EGFR Non-African American 71.1 (>60)
--- NOTE | 2016-03-30 19:23 | RAD ---
INDICATION: Hypoxia COMPARISON: Chest x-ray dated February 28, 2069 TECHNIQUE: Single AP portable view of the chest was obtained. FINDINGS: Image quality is compromised due to the relative inferiority of a portable chest x-ray. There is mild to moderate cardiomegaly. Patchy densities obscure the bilateral medial and lower lungs. There is obscuration of the bilateral diaphragm, worse at the left lung base than the right. The pulmonary vasculature is engorged and indistinct. IMPRESSION: Constellation of findings as described above most consistent with cardiogenic pulmonary edema with left greater than right bibasilar pleural effusions and/or consolidation.
[2016-03-30] MEDS ORDERED: Vancomycin(*) 1,500 MG in NS 0.9% 250 ML* 250 ML IVPB ONE (19:40)
[2016-03-30] MEDS ORDERED: Vancomycin per Pharmacy* NOTE FOLLOW UP PRN (20:53)
[2016-03-31] MEDS: Hydrocortisone INJ* 100 MG VIAL IV SCH ×3 (01:34→17:44)
[2016-03-31] MEDS: Levothyroxine TAB* 50 MCG TAB PO SCH (06:11)
[2016-03-31] MEDS: proPAFENone TAB* 150 MG PO SCH ×3 (06:12→22:21)
[2016-03-31 06:47] LABS: Hematocrit 31 % (35-47); Hemoglobin 10.2 g/dl (12.0-16.0); Mean Corpuscular HGB Conc 33 g/dl (31-36); Mean Corpuscular Hemoglobin 32 pg (27-31); Mean Corpuscular Volume 96 fL (80-97); Mean Platelet Volume 9 um3 (7.4-10.4); Red Blood Count 3.19 10^6/ul (4.0-5.4); Red Cell Distribution Width 16 % (10.5-15); White Blood Count 14.8 10^3/ul (3.5-10.8)
[2016-03-31 07:01] LABS: BUN/Creatinine Ratio 18.8 (8-20); Calcium 8.5 mg/dL (8.6-10.3); EGFR African American 74.1 (>60); EGFR Non-African American 57.6 (>60); Potassium 3.8 mmol/L (3.5-5.0)
[2016-03-31] MEDS: Atorvastatin* 10 MG TAB PO SCH (07:24)
--- NOTE | 2016-03-31 07:24 | PN ---
Subjective Date of Service: 03/31/16 Interval History: 7:30: spoke to the primary nurse over the phone and reported pt appears better today with improved lung sounds, pt awake in NAD, continued to require 5L NC to maintain O2 sats. 0900: Primary nurse call reporting pt appeared to have increased RR rate and sounded "more full of fluid" after Vanco was started. Pt was ordered to have 40 mg IV lasiv, and a chest xray. Within 10 minutes a CAT call was called to the patients room for acute respiratory distress with noted O2 sats 75% on 15 L, RR >30, [id number], SBP 160's/40. Patient was another 40 IV lasix, 1 inch nitro paste and 2mg IV morphine and started on Bipap. Pt transferred to the ICU for Bipap and more aggressive care/monitoring. notified and came to the hospital within 20 minutes and is now at the bedside. He confirms that pt is a DNR/DNI. He would like aggressive medical management to see if patient can turn around but understand she may not survive this Dr. Castellon evaluated pt at the bedside. Pt has had improved RR, decreased HR and improved O2 sats with multiple doses of morphine. Family History: Unchanged from Admission Social History: Unchanged from Admission Past Medical History: Unchanged from Admission Objective Active Medications: Acetaminophen (Tylenol Tab*) 650 mg PO Q6H PRN PRN Reason: pain and fever Last Admin: 03/27/16 21:04 Dose: 650 mg Atorvastatin Calcium (Lipitor*) 10 mg PO DAILY [facility] Last Admin: 03/30/16 07:29 Dose: 10 mg Baclofen (Lioresal Tab*) 45 mg PO BID [facility] Last Admin: 03/30/16 20:30 Dose: 45 mg Bisacodyl (Dulcolax Supp*) 10 mg NV DAILY PRN PRN Reason: CONSTIPATION Last Admin: 03/30/16 10:38 Dose: 10 mg Docusate Sodium (Colace Cap*) 100 mg PO BID [facility] Last Admin: 03/30/16 20:32 Dose: 100 mg Glatiramer Acetate (Copaxone(Nf)) 20 mg SUBCUT QPM [facility] Last Admin: 03/30/16 17:34 Dose: 20 mg Hydrocortisone Sodium Succinate (Solu-Cortef*) 25 mg IV Q8H [facility] Stop: 03/31/16 17:01 Last Admin: 03/31/16 01:34 Dose: 25 mg Vancomycin HCl 1,250 mg/ (Sodium Chloride) 250 mls @ 166.667 mls/hr IVPB Q12H [facility] Levothyroxine Sodium (Synthroid Tab*) 50 mcg PO DAILY@0600 [facility] Last Admin: 03/31/16 06:11 Dose: 50 mcg Ondansetron HCl (Zofran Inj*) 4 mg IV Q4H PRN PRN Reason: NAUSEA/VOMITING Pharmacy Consult (Vancomycin Per Pharmacy*) 1 note FOLLOW UP . PRN PRN Reason: PER PROTOCOL Pharmacy Profile Note (Vancomycin Trough Check) 1 note FOLLOW UP 0730 ONE Stop: 04/01/16 07:31 Propafenone HCl (Rythmol*) 150 mg PO Q8HR [facility] Last Admin: 03/31/16 06:12 Dose: 150 mg Rivaroxaban (Xarelto (*)) 20 mg PO DAILY@1700 [facility] Last Admin: 03/30/16 17:33 Dose: 20 mg Solifenacin (Vesicare(Nf)) 10 mg PO DAILY [facility] Last Admin: 03/30/16 07:29 Dose: 10 mg Vital Signs 03/30/16 03/30/16 03/30/16 08:00 08:20 10:48 Temperature 97.5 F 97.7 F Pulse Rate 90 93 Respiratory 18 20 Rate Blood Pressure 162/77 124/42 (mmHg) O2 Sat by Pulse 93 94 Oximetry 03/30/16 03/30/16 03/30/16 15:05 20:00 20:12 Temperature 97.7 F 98.4 F Pulse Rate 100 103 Respiratory 18 20 20 Rate Blood Pressure 127/45 164/73 (mmHg) O2 Sat by Pulse 91 95 Oximetry 03/31/16 03/31/16 00:19 04:28 Temperature 98.8 F 100.0 F Pulse Rate 100 112 Respiratory 18 18 Rate Blood Pressure 153/63 158/66 (mmHg) O2 Sat by Pulse 96 97 Oximetry Oxygen Devices in Use Now: CPAP/BiPAP - While napping and at night Appearance: 71 yo female minimally responsive, tachypneic Eyes: No Scleral Icterus, PERRLA Neck: NL Appearance and Movements; NL JVP Respiratory: - - accessory muscle use noted, tacypneic, coarse rhonchi throughout Cardiovascular: - - tachycardia Abdominal: - - soft, nondistended Extremities: - - 1-2+ LE edema b/l Neurological: - - alert, response to stimuli - some verbal responses Lines/Tubes/Other Access: Clean, Dry and Intact Peripheral IV Result Diagrams: 03/31/16 06:38 03/31/16 06:38 Assess/Plan/Problems-Billing Assessment: Ms. 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 - Patient Problems (1) Acute respiratory failure Comment: -acute pulmonary edema with suspect pneumonitis. continue Bipap, nitro paste, morphine - 80 mg IV lasix given - chest xray showing cardiogenic pulmonary edema with likely pleural effusion in the left lung base (2) Altered mental status Comment: - Pt with lethargy and slowed mentation, this is consistent with past presentation for when she has an infection - Brain CT shows no acute findings - EEG shows slowing, no seizure activity (3) UTI (urinary tract infection) Comment: - History of neurogenic bladder, Pt's does self catheterization at home - Urine culture shows MRSA - Continue Vanco - blood cx pending (4) Adrenal insufficiency Comment: - Confirmed central adrenal insufficiency - Continue stress dose steroids for now, but will decrease to 12.5 mg Q8H (down from 25) resuming home Hydrocortisone tomorrow (5) Multiple sclerosis Comment: Continue glatiramer and baclofen. (6) Electrolyte abnormality Comment: Hypomagnesium: Resolved (7) Hypothyroidism Comment: - TSH 2.97 - Continue Levothyroxine (8) Atrial fibrillation Comment: - Not currently in atrial fibrillation. - Continue propafenone and rivaroxaban. (9) Neurogenic bladder Comment: - Continue Vesicare. At home, patient on BID straight catheterization regimen. - Perez placed in the ED, continue for now - Discussed case with Urology on how to help avoid UTI's. They recommend making sure Pt's uses sterile technique and a new sterile kit each time. Also to consider prophylactic ABX to help prevent UTIs. They don't feel the Pt would benefit from an indwelling catheter or suprapubic catheter. - Discussed with Pts how he performs st. cath, he describes the proper process and states that he uses a new kit each time. (10) Obstructive sleep apnea Comment: - BiPAP at night and when napping. (11) DNR (do not resuscitate) (12) DVT prophylaxis Comment: Continue Xarelto. Status and Disposition: Inpatient. Plan to discharge to home when medically stable.
[2016-03-31] MEDS: Baclofen TAB* 10 MG PO SCH ×2 (07:25→22:20)
[2016-03-31] MEDS: Docusate CAP* 100 MG PO SCH ×2 (07:25→22:21)
[2016-03-31] MEDS: CMCS: Solifenacin(NF) 5 MG TAB PO SCH (07:35)
[2016-03-31] MEDS: Vancomycin(*) 1,250 MG in NS 0.9% 250 ML* 250 ML IVPB SCH ×2 (07:44→19:57)
[2016-03-31] MEDS ORDERED: Furosemide IV* 10 MG/ML VIAL (40 MG) ONE ×2 (08:54→09:10)
[2016-03-31] MEDS ORDERED: Furosemide IV* 10 MG/ML 10 ML VIAL (100 MG) IV ONE ×3 (09:00→18:00)
[2016-03-31] MEDS ORDERED: Nitroglycerin 2% OINT* 1 GM PAK ONE (09:07)
[2016-03-31] MEDS ORDERED: Nitroglycerin 2% OINT* 1 GM PAK TOPICAL ONE (09:07)
[2016-03-31] MEDS ORDERED: Morphine INJ* 2 MG/ML 1 ML CARPUJECT IV ONE ×2 (09:20→10:45)
[2016-03-31] MEDS ORDERED: Morphine INJ* 2 MG/ML 1 ML CARPUJECT ONE (09:20)
--- NOTE | 2016-03-31 09:25 | PN ---
Hospitalist Progress Note HOSPITALIST ADDENDUM CAT called for patient in respiratory distress and hypoxic. Patient seen at bedside, cyanotic, in respiratory distress, unresponsive. Chest: BS+ bilaterally with bilateral rales SO2 76% on 15 liters, BP 169/40, HR 130, RR>30 A/P: Acute on chronic hypoxemic respiratory failure secondary to CHF exacerbation. - Lasix 80mg IV, nitro paste 1 inch to ACW, transfer to ICU for nitro drip. - BiPAP. - MOLST indicates patient is DNR/DNI and would elect comfort measures. In the process of contacting her . - Kannan Valencia ONLINE ADVERTISING ANALYST is the primary provider and was at bedside.
[2016-03-31] MEDS ORDERED: Morphine INJ* 10 MG/ML 1 ML CARPUJECT IV ONE ×3 (09:40→10:05)
[2016-03-31] MEDS ORDERED: Morphine INJ* 10 MG/ML 1 ML CARPUJECT ONE (09:40)
--- NOTE | 2016-03-31 11:21 | RAD ---
INDICATION: Altered mental status COMPARISON: Most recent comparison chest x-rays dated March 30, 2016 TECHNIQUE: Single AP portable view of the chest was obtained. FINDINGS: Image quality is compromised due to the relative inferiority of a portable chest x-ray. There is persistent mild cardiomegaly, engorgement and indistinction of the pulmonary vasculature and left greater than right lung base density obscuring the diaphragm and causing costophrenic angle blunting. IMPRESSION: Chest x-ray findings are most consistent with cardiogenic pulmonary edema with likely pleural effusion at the left lung base and no substantial change in degree of aeration from the previous day chest x-ray.
[2016-03-31] MEDS: Rivaroxaban TAB(*) 20 MG TAB PO SCH (17:05)
[2016-03-31] MEDS: PTO: Glatiramer(NF) 20 MG/ML 1 ML SYRINGE SUBCUT SCH (17:44)
[2016-03-31] MEDS: Nitroglycerin 2% OINT* 1 GM PAK TOPICAL SCH (18:44)
[2016-03-31] MEDS: Morphine INJ* 2 MG/ML 1 ML CARPUJECT IV PRN (23:58)
[2016-04-01] MEDS ORDERED: Furosemide IV* 10 MG/ML 10 ML VIAL (100 MG) IV ONE (01:03)
[2016-04-01] MEDS: Hydrocortisone INJ* 100 MG VIAL IV SCH ×2 (01:19→09:37)
[2016-04-01 02:07] LABS: BUN/Creatinine Ratio 19.8 (8-20); Calcium 8.7 mg/dL (8.6-10.3); EGFR African American 66.1 (>60); EGFR Non-African American 51.4 (>60); Magnesium 1.9 mg/dL (1.9-2.7); Potassium 3.2 mmol/L (3.5-5.0)
[2016-04-01] MEDS ORDERED: KCL 20 MEQ/100 ML IVPREMIX* 20 MEQ/100 ML BAG ONE ×2 (02:14→04:40)
[2016-04-01] MEDS: Nitroglycerin 2% OINT* 1 GM PAK TOPICAL SCH ×2 (02:29→11:17)
[2016-04-01] MEDS ORDERED: Diltiazem IV* 5 MG/ML 5 ML VIAL (for loading dose/IV Push) (25 MG) ONE (02:45)
[2016-04-01] MEDS ORDERED: Diltiazem DRIP* 100 MG/100 ML ADDV.BAG IVPB ONE (02:52)
[2016-04-01] MEDS ORDERED: Digoxin IV* 0.5 MG/2 ML AMP (0.25 MG/ML) ONE (03:15)
[2016-04-01] MEDS ORDERED: Diltiazem IV* 5 MG/ML 5 ML VIAL (for loading dose/IV Push) (25 MG) IV SLOW PU ONE ×2 (03:29→04:00)
[2016-04-01] MEDS ORDERED: Digoxin IV* 0.5 MG/2 ML AMP (0.25 MG/ML) IV SLOW PU PRN (03:34)
[2016-04-01] MEDS: Morphine INJ* 2 MG/ML 1 ML CARPUJECT IV PRN (03:50)
--- NOTE | 2016-04-01 03:58 | PN ---
Progress Note - Progress Note Note: Nursing called reporting severe tachycardia up to 214. ECG confirmed AFIB. Upon evaluation, Mrs Ann is a 71F admitted for AoC HF who developed hypoxia on the floor and transferred to ICU. She is currently on BiPap and denies chest pain, worse SOB, or other new issues. She appears in no acute distress. She had been unable to swallow PO meds last evening and as a result did not get her PO propafenone. Earlier in the shift she had become tachypneic in the 30s with a HR in the 120s which had reportedly responded well previously to IV furosemide and she had received 3 boluses of furosemide earlier today. BMP and Mg were checked. K is 3.2 (3.8 this AM prior to 40mg furosemide x3). Mag is 1.9. Ordered 20mEq KCl x2 and 80mg IV furosemide to which she seemed to respond. She was ordered 20mg IV diltiazem push and GTT to titrate to rate/pressure. The diltiazem GTT was titrated to 15mg/hr without adequate response. Digoxin 0.25mg Q20M x2 was given without adequate response. This was followed by amiodarone 150mg IV bolus/GTT initiation. general: obese white female, NAD lungs: rhonchi B, wearing BiPap, fair aeration CV: TIR/IR, no audible murmurs abdomen: SNTND, NABS assessment: plan AFIB/RVR : failed diltiazem bolus/GTT : failed initial IV digoxin : start amiodarone 150mg bolus & GTT : continue close monitoring : blood pressure & saO2 stable, RR 30s CHF : continue diuresis hypoKalemia : replace & recheck
[2016-04-01] MEDS ORDERED: Diltiazem IV VIAL* 125 MG in NS 0.9% 100 ML* 100 ML IVPB SCH (04:00)
[2016-04-01] MEDS ORDERED: Amiodarone 150 MG IVPREMIX* 150 MG/100 ML BAG IV ONE (04:00)
[2016-04-01] MEDS ORDERED: Diltiazem DRIP* 100 MG/100 ML ADDV.BAG IVPB SCH (04:00)
[2016-04-01] MEDS ORDERED: Amiodarone 360 MG IVPREMIX* 360 MG/200 ML BAG IV ONE (04:16)
[2016-04-01 05:27] LABS: Hematocrit 32 % (35-47); Hemoglobin 10.8 g/dl (12.0-16.0); Mean Corpuscular HGB Conc 34 g/dl (31-36); Mean Corpuscular Hemoglobin 32 pg (27-31); Mean Corpuscular Volume 96 fL (80-97); Mean Platelet Volume 9 um3 (7.4-10.4); Red Blood Count 3.35 10^6/ul (4.0-5.4); Red Cell Distribution Width 16 % (10.5-15); White Blood Count 9.8 10^3/ul (3.5-10.8)
[2016-04-01 05:29] LABS: BUN/Creatinine Ratio 18.9 (8-20); Calcium 8.9 mg/dL (8.6-10.3); EGFR African American 66.1 (>60); EGFR Non-African American 51.4 (>60); Potassium 3.7 mmol/L (3.5-5.0)
[2016-04-01] MEDS: proPAFENone TAB* 150 MG PO SCH (06:50)
[2016-04-01] MEDS: Levothyroxine TAB* 50 MCG TAB PO SCH (06:50)
[2016-04-01] MEDS ORDERED: Vancomycin Trough Check NOTE FOLLOW UP ONE (07:30)
[2016-04-01] MEDS ORDERED: Morphine INJ* 10 MG/ML 1 ML CARPUJECT IV ONE ×2 (09:30→11:12)
[2016-04-01] MEDS ORDERED: Amiodarone 360 MG IVPREMIX* 360 MG/200 ML BAG IV SCH (09:30)
[2016-04-01] MEDS: Vancomycin(*) 1,250 MG in NS 0.9% 250 ML* 250 ML IVPB SCH (09:59)
--- NOTE | 2016-04-01 10:52 | PN ---
Subjective Date of Service: 04/01/16 Interval History: 0800: Patient went into rapid afib overnight and started on cardizm and amiodarone gtts. Pt continues to be on Bipap with full support. She is awake but continues to be confused not responding appropriately. Daughter at bedside who "just wants her mother to be comfortable" and realizes she is not going to survive this. She reports she has been declining fast over this past year with multiple hospitalizations (7) and she is dependent on others for all her care. She agrees with comfort care and states the family agrees. Her father who is the HCP was on his way in . 1100: Dr. Kincaid Palliative Care physician met with the family and wants full comfort care measures with morphine gtt. Molst was updated. Family History: Unchanged from Admission Social History: Unchanged from Admission Past Medical History: Unchanged from Admission Objective Active Medications: Acetaminophen (Tylenol Tab*) 650 mg PO Q6H PRN PRN Reason: pain and fever Last Admin: 03/27/16 21:04 Dose: 650 mg Atorvastatin Calcium (Lipitor*) 10 mg PO DAILY [facility] Last Admin: 03/31/16 07:24 Dose: Not Given Baclofen (Lioresal Tab*) 45 mg PO BID [facility] Last Admin: 03/31/16 22:20 Dose: Not Given Bisacodyl (Dulcolax Supp*) 10 mg AR DAILY PRN PRN Reason: CONSTIPATION Last Admin: 03/30/16 10:38 Dose: 10 mg Digoxin (Digoxin Iv*) 0.25 mg IV SLOW PU Q20M PRN PRN Reason: TACHYCARDIA Stop: 04/02/16 03:33 Last Admin: 04/01/16 03:38 Dose: 0.25 mg Docusate Sodium (Colace Cap*) 100 mg PO BID [facility] Last Admin: 03/31/16 22:21 Dose: Not Given Glatiramer Acetate (Copaxone(Nf)) 20 mg SUBCUT QPM [facility] Last Admin: 03/31/16 17:44 Dose: 20 mg Hydrocortisone Sodium Succinate (Solu-Cortef*) 12.5 mg IV Q8H [facility] Stop: 04/01/16 17:01 Last Admin: 04/01/16 09:37 Dose: 12.5 mg Vancomycin HCl 1,250 mg/ (Sodium Chloride) 250 mls @ 166.667 mls/hr IVPB Q12H [facility] Last Admin: 04/01/16 09:59 Dose: 166.667 mls/hr Diltiazem HCl (Cardizem Iv Advan*) 100 mg in 100 mls @ 5 mls/hr IVPB PER RATE [facility] PRN Reason: 5 MG/HR Last Admin: 04/01/16 06:49 Dose: 20 mls/hr Amiodarone HCl (Nexterone 360 Mg/200 Ml Ivpremix*) 360 mg in 200 mls @ 33.333 mls/hr IV .Q24H [facility] PRN Reason: 1 MG/MIN Last Admin: 04/01/16 09:57 Dose: 33.333 mls/hr Levothyroxine Sodium (Synthroid Tab*) 50 mcg PO DAILY@0600 [facility] Last Admin: 04/01/16 06:50 Dose: Not Given Morphine Sulfate (Morphine Inj (Syringe)*) 2 mg IV Q4H PRN PRN Reason: AIR HUNGER Last Admin: 04/01/16 03:50 Dose: 2 mg Nitroglycerin (Nitroglycerin 2% Oint*) 1 inch TOPICAL Q8H [facility] Last Admin: 04/01/16 02:29 Dose: 1 inch Ondansetron HCl (Zofran Inj*) 4 mg IV Q4H PRN PRN Reason: NAUSEA/VOMITING Pharmacy Consult (Vancomycin Per Pharmacy*) 1 note FOLLOW UP . PRN PRN Reason: PER PROTOCOL Propafenone HCl (Rythmol*) 150 mg PO Q8HR [facility] Last Admin: 04/01/16 06:50 Dose: Not Given Rivaroxaban (Xarelto (*)) 20 mg PO DAILY@1700 [facility] Last Admin: 03/31/16 17:05 Dose: Not Given Solifenacin (Vesicare(Nf)) 10 mg PO DAILY [facility] Last Admin: 03/31/16 07:35 Dose: Not Given Vital Signs 04/01/16 04/01/16 04/01/16 08:00 08:15 08:30 Temperature 99.2 F Pulse Rate 149 149 Respiratory 37 34 Rate Blood Pressure 171/65 142/74 178/50 (mmHg) O2 Sat by Pulse 98 98 Oximetry 04/01/16 04/01/16 04/01/16 08:45 09:00 09:15 Temperature Pulse Rate 97 156 102 Respiratory 28 35 32 Rate Blood Pressure 179/104 191/63 151/48 (mmHg) O2 Sat by Pulse 98 98 98 Oximetry 04/01/16 04/01/16 04/01/16 09:30 09:45 10:00 Temperature Pulse Rate 98 98 39 Respiratory 37 35 34 Rate Blood Pressure 171/115 151/47 163/91 (mmHg) O2 Sat by Pulse 98 96 95 Oximetry Oxygen Devices in Use Now: CPAP/BiPAP - While napping and at night Result Diagrams: 04/01/16 04:50 04/01/16 04:50 Microbiology and Other Data: Microbiology 03/31/16 06:38 Aerobic Blood Culture - Preliminary Blood Venous No Growth Day 1 Anaerobic Blood Culture - Preliminary No Growth Day 1 03/30/16 18:30 Aerobic Blood Culture - Preliminary Blood Venous No Growth Day 1 Anaerobic Blood Culture - Preliminary No Growth Day 1 Assess/Plan/Problems-Billing Assessment: Ms. 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 - Morphine Gtt, ativan, sclopolamine patch, atropine gtt (2) Neurogenic bladder Comment: continue baum (3) DNR (do not resuscitate) (4) DVT prophylaxis Status and Disposition: Inpatient. Patient is on comfort care measures expected to not survive
[2016-04-01] MEDS: Docusate CAP* 100 MG PO SCH (11:08)
[2016-04-01] MEDS: Atorvastatin* 10 MG TAB PO SCH (11:08)
[2016-04-01] MEDS: CMCS: Solifenacin(NF) 5 MG TAB PO SCH (11:08)
[2016-04-01] MEDS: Baclofen TAB* 10 MG PO SCH (11:08)
--- NOTE | 2016-04-01 11:16 | ECHO ---
Patient: LESLI STRINGER [facility] Rec#: [id number] : 1945 Date: 04/01/2016 Age: 71y Height: 157.48 cm / 62.0 in Weight: 95.25 kg / 209.9 lbs Sex: F BSA: 1.95 Room#: [facility]- Admit Date#: 03/27/2016 Type: Inpatient Referring: Dae Arreola MD Reading: Jose Michel MD Assistant Drafter: Sol Londono RDCS CC: Ellen Reynolds MD Transthoracic Echocardiogram Indication: A-fib BP: 166/84 HR: 150 Rhythm: A-Fib Findings History: Multiple sclerosis,GEN with Bipap,a-fib. Technical Comments: The study is technically limited due to patient being on BIPAP during study. Completed at 0920. Left Ventricle: The left ventricular chamber size is decreased. Moderate concentric left ventricular hypertrophy is observed. There is normal left ventricular systolic function. The estimated ejection fraction is 50-55%. Left Atrium: The left atrial chamber size is normal. Right Ventricle: The right ventricular cavity size is normal. The right ventricular global systolic function is normal. Right Atrium: The right atrial cavity size is normal. Aortic Valve: The aortic valve is trileaflet. There is no evidence of aortic valve thickening. There is no evidence of aortic regurgitation. There is mild aortic stenosis. Mitral Valve: The mitral valve leaflets appear normal. There is trace to mild mitral regurgitation. There is no evidence of mitral stenosis. Tricuspid Valve: The tricuspid valve leaflets are normal. There is trace to mild tricuspid regurgitation. There is evidence of mild pulmonary hypertension. There is no tricuspid stenosis. Pulmonic Valve: The pulmonic valve appears normal. There is a trace pulmonic regurgitation. There is no pulmonic stenosis. Pericardium: A pericardial fat pad is visualized. A left pleural effusion is present. There is a moderate pleural effusion. Aorta: There is no dilatation of the ascending aorta. There is no dilatation of the aortic arch. There is no dilation of the aortic root. Pulmonary Artery: The main pulmonary artery appears normal. Venous: The inferior vena cava appears normal in size. There is an approximate 50% respiratory change in the inferior vena cava dimension. Conclusions Moderate concentric left ventricular hypertrophy is observed. There is normal left ventricular systolic function. The estimated ejection fraction is 50-55%. The right ventricular global systolic function is normal. The left atrial chamber size is normal. There is no evidence of aortic regurgitation. There is mild aortic stenosis. There is trace to mild mitral regurgitation. There is trace to mild tricuspid regurgitation. There is evidence of mild pulmonary hypertension. A left pleural effusion is present. No periardial effusion Compared to study of 04/13/15, the LV function is the same. The mild is new Measurements Name Value Normal Range RVIDd (AP) 2D 2.5 cm (0.9 - 2.6) RVDdMajor (2D) 4 cm (2.2 - 4.4) RAd ISD 4CH 4.2 cm (3.4 - 4.9) RA (A4C)W 4.1 cm (2.9 - 4.6) IVSd (2D) 1.5 cm (0.6 - 1) LVPWd (2D) 1.5 cm (0.6 - 1) LVIDd (2D) 3 cm (3.6 - 5.4) LVIDs (2D) 2 cm - LV FS (2D) 32 % (25 - 45) Aortic Annulus 1.9 cm (1.4 - 2.6) Ao root diameter (2D) 3.2 cm (2.1 - 3.5) Ascending Ao 3.2 cm (2.1 - 3.4) Aortic arch 2.5 cm (1.8 - 3.4) Descending Ao 0.6 cm - LA dimension (AP) 2D 3.4 cm (2.3 - 3.8) LAd ISD 4CH 5 cm (2.9 - 5.3) LA ISD 4CH W 4 cm (2.5 - 4.5) Name Value Normal Range LA ESV SP 4CH (A/L) 61 ml - LA ESV SP 2CH (A/L) 76 ml - LA ESV BP (A/L) 70 ml - LA ESV BP (A/L) index 35.69 ml/m2 - LA ESV SP 4CH (MOD) 56 ml - LA ESV SP 2CH (MOD) 73 ml - Name Value Normal Range MV E-wave Vmax 1.4 m/sec - MV deceleration time 100 msec - LV septal e' Vmax 0.11 m/sec - LV lateral e' Vmax 0.15 m/sec - LV E:e' septal ratio 12.72 ratio - LV E:e' lateral ratio 9.33 ratio - Name Value Normal Range AV Vmax 2.3 m/sec - AV VTI 30.9 cm - AV peak gradient 20.8 mmHg - AV mean gradient 10.5 mmHg - LVOT Vmax 2.2 m/sec - LVOT VTI 31 cm - LVOT peak gradient 19.88 mmHg - LVOT mean gradient 8.54 mmHg - Name Value Normal Range TR Vmax 3 m/sec - TR peak gradient 37 mmHg - RAP 8 mmHg - RVSP 45 mmHg - IVC diameter 1.2 cm - Name Value Normal Range PV Vmax 1.4 m/sec - PV peak gradient 8.16 mmHg -
[2016-04-01] MEDS ORDERED: Morphine PCA ADULT* 5 MG/ML 30 ML PCA SCH ×2 (12:00→15:01)
[2016-04-01] MEDS ORDERED: Scopolamine 1.5 mg* PATCH TRANSDERM SCH (13:00)
[2016-04-01] MEDS: Atropine 1% (ORAL/SL)* 15 ML BTL SL PRN ×2 (14:33→16:33)
[2016-04-01] MEDS: LORazepam INJ* 2 MG/ML 1 ML VIAL IV PUSH PRN ×2 (14:40→16:40)
[2016-04-01 14:53] VITALS: BP 164/66
--- NOTE | 2016-04-01 19:25 | CONS ---
PALLIATIVE CARE CONSULT REPORT: DATE OF CONSULT: 04/01/16 PRIMARY CARE PHYSICIAN: Ellen Reynolds MD REQUESTING PHYSICIAN FOR CONSULT: Gudelia Valencia NP REASON FOR CONSULT: Evaluation for palliative care and hospice eligibility. HISTORY OF PRESENT ILLNESS: This is a 71-year-old female with a past medical history of MS diagnosed in 1974, neurogenic bladder with recurrent UTIs, AFib, and obstructive sleep apnea, who presented to the emergency room on the 27 of March with altered mental status. At that time, she was found to be encephalopathic, thought to be secondary to urinary tract infection. No other remarkable findings for encephalopathy. The patient was admitted to the floor, started on antibiotics. The patient with adrenal insufficiency as well, also later in hospitalization was noted to be hypotensive and tachycardic, started on stress-dose steroids. She had an EEG done on the that showed diffuse swelling of background consistent with encephalopathy, but nonspecific etiology. The family states on the 29 of March, she seemed to be improved , she had a good appetite; however on the , she seemed to be deteriorated and more confused and encephalopathic. On , the patient went into respiratory failure thought to be secondary to acute decompensated CHF, was given Lasix, placed on the BiPAP, and then a CAT call was noted, in the occupational health and safety manager of the , the patient was in rapid atrial fibrillation with the heart rate in the 214s, and she was tachypneic and she was given more Lasix and diltiazem drip and an amiodarone drip as well, and transferred to the ICU on BiPAP. The patient has remained encephalopathic. BiPAP was taken off during my encounter. She has got dried blood around her mouth, dry mucous membranes. She has limited interaction, unable to make eye contact. She is able to squeeze her left hand and states that she is in pain, however, limited interaction. The family states that she has been deteriorating over this past few months since this has been her fourth admission since January of 2016. She has been intubated twice in the past and has recently updated her MOLST to be a DNR/DNI with Dr. Reynolds. The who is the healthcare proxy, Dinesh, states he went to go see Dr. Reynolds on the prior to her declining and she did a simple cognitive evaluation test and she was unable to answer any of their questions accurately. On a good day, the patient is wheelchair bound, is able to transfer, and she enjoys watching TV. Otherwise, unable to obtain remaining review of systems as patient is minimally responsive. PAST MEDICAL HISTORY: 1. Mild pulmonary hypertension. 2. MS, diagnosed in 1974, followed by Dr. Lubin. 3. History of neurogenic bladder with recurrent urinary tract infections. 4. Atrial fibrillation, on anticoagulation. 5. Severe obstructive sleep apnea, on BiPAP. 6. History of adrenal insufficiency, on hydrocortisone. 7. Hypothyroidism. INPATIENT MEDICATIONS: 1. Tylenol 650 every 6 hours as needed for pain. 2. Amiodarone drip. 3. Atorvastatin 10 mg daily. 4. Baclofen 45 mg p.o. b.i.d. 5. Dulcolax suppository as needed. 6. Diltiazem drip. 7. Copaxone subcu 20 mg. 8. Colace 100 mg p.o. b.i.d. 9. Hydrocortisone injection 12.5 mg IV q.8 hours. 10. Levothyroxine 50 mcg p.o. daily. 11. Morphine 2 mg every 4 hours as needed for pain. 12. Nitro topical paste. 13. Zofran 4 mg. 14. Vancomycin. ALLERGIES: No known drug allergies. FAMILY HISTORY: Father from heart failure. Mother from stroke. SOCIAL HISTORY: The patient lives at home with her , Dinesh, who is her healthcare proxy. She is wheelchair-bound. She has [employer] aides coming to the home to help her. The is her primary healthcare proxy; secondary is her daughter, Gila. She has 2 sons who are in the room present today. 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 No history of alcohol or tobacco use. MOLST form on consultation is DNR/DNI with comfort measures. REVIEW OF SYSTEMS: Unable to obtain due to the patient's altered mental status. PHYSICAL EXAM: Vitals: Temperature is 99.2, pulse rate is 131, respiratory rate 37, oxygen saturation 89% on , blood pressure 152/59. General: The patient is tachypneic with increased work of breathing, alert, but minimally interactive. HEENT: Neck is supple. Mucous membranes are dry with black dried blood over tongue and mucous membranes. Pupils are reactive, anicteric. Head is normocephalic. Cardiac: Rapid irregularly irregular rate and rhythm. Respiratory: Coarse rhonchorous breath sounds bilaterally with increased work of breathing. Abdomen: Soft, nontender, and nondistended. Extremities: Distal pulses. Extremities are cool. +2 pitting edema bilaterally. Neurologic : The patient is able to squeeze her left hand when asked if she is in pain, otherwise unable to answer questions appropriately or move her extremities or follow any commands appropriately. Alert and oriented x0. LABORATORY DATA: White count 9.8, hemoglobin 10.8, hematocrit 32, platelets 161. Sodium 137, potassium 3.7, chloride 97, bicarb 31, BUN 20, creatinine 1.06. ASSESSMENT: This is a 71-year-old female with past medical history of multiple sclerosis, who presented to the emergency room with altered mental status thought to be secondary to a urinary tract infection, deteriorated with acute decompensated heart failure and respiratory failure, was transferred to the ICU on BiPAP and Cardizem and amiodarone drip, and has not improved in her altered mental status or her cardiopulmonary function. I discussed with the family including the , the two children, their good friend, and additional family members, and they all feel that they want to keep her comfortable. They realized that she is at the end stages of life with multi-organ failure and has declined over the past few months with several admissions and has been intubated in the past and she no longer wants aggressive management and with her able to say that she is in pain, their goal is to keep her comfortable and to stop further aggressive treatments including IV fluids, antibiotics, and cardiac medications. We will discontinue appropriate medications, start the patient on a morphine drip. We discussed she may not survive this hospitalization, but if she does that home with 24-hour care and hospice service would be appropriate and also the residence as well. The family is preferring the residence at this time depending on how she does. Thank you for this consultation. We will follow along with you. PATIENT TIME: Greater than 90 minutes was spent during this consultation; more than half the time was in direct patient contact. CC: Ellen Reynolds MD* [id number]/[facility] #: [id number] SUSAN
[2016-04-02] MEDS ORDERED: Levothyroxine TAB* 50 MCG TAB PO SCH (06:00)
[2016-04-02] MEDS ORDERED: Morphine INJ* 4 MG/ML 1 ML CARPUJECT IV PRN (09:17)
--- NOTE | 2016-04-02 11:38 | DCNOTE ---
Subjective Date of Service: 04/02/16 Interval History: Patient at 1040 this morning surrounded by family. The patient was examined at the bedside. no heart beat or pulses identified. no respirations. Pt appears mottled. Family History: Unchanged from Admission Social History: Unchanged from Admission Past Medical History: Unchanged from Admission Objective Appearance: 71 yo female laying in bed, appears mottled Result Diagrams: 04/01/16 04:50 04/01/16 04:50 Microbiology and Other Data: Microbiology 03/31/16 06:38 Aerobic Blood Culture - Preliminary Blood Venous No Growth Day 1 Anaerobic Blood Culture - Preliminary No Growth Day 1 03/30/16 18:30 Aerobic Blood Culture - Preliminary Blood Venous No Growth Day 1 Anaerobic Blood Culture - Preliminary No Growth Day 1 Assess/Plan/Problems-Billing Assessment: Ms. 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 cessation of respirations, no heart beat or pulses identified on exam (2) Neurogenic bladder Comment: continue baum (3) DNR (do not resuscitate) (4) DVT prophylaxis Status and Disposition: Inpatient. Tahir for arrangements per family
--- NOTE | 2016-04-03 19:56 | DS ---
SUMMARY: DATE OF ADMISSION: 03/27/16 DATE OF : 04/02/16 TIME OF : 10:40 a.m. PROVIDER: Desire Moreno NP ATTENDING PHYSICIAN: Dr. Dubon *(report dictated by Desire Moreno NP). PRIMARY CARE PROVIDER: Dr. Ellen Reynolds. CAUSE OF : Acute respiratory failure secondary to multiple sclerosis and pulmonary edema. SUMMARY: Please see history and physical by ELEANOR Hercules, for full admission details, but in summary this was a 71-year-old female, who presented to the emergency department on 03/27/16 with altered mental status. The patient had a complex past medical history including multiple sclerosis, recent diagnosis of central adrenal insufficiency and subclinical hypothyroidism, who has had 6 prior hospitalizations in the past year, this was her 7th. The patient was admitted to the hospitalist service. It was suspected she had urinary tract infection most likely secondary to her neurogenic bladder and requiring straight catheterization. Her urine culture did grow MRSA. She was given IV vancomycin. She continued to have encephalopathy with some confusion and never fully made it back to her baseline. She did undergo brain CT which was negative for acute intracranial mass, hemorrhage, or infarct. A couple of days into her hospitalization, she did have a better day where she was able to communicate well with her ; however, this did not last long and she continued to wax and wane mostly with significant confusions and encephalopathy. No other source of infection noted. On 03/30/16, the patient had increased oxygen requirements and noted tachypnea and underwent a chest x- ray which showed findings most consistent with cardiogenic pulmonary edema with possible likely pleural effusion at left lung base, but no significant change in degree of aeration from her previous x-ray. She was given some IV Lasix and diuresed well overnight. The next morning, the patient clinically appeared much better with good aeration throughout her lungs; however, when her IV antibiotics were hung, she only received approximately 100 mL of the IV when she appeared to have significant flash pulmonary edema and ended up being clinical assessment team called. The patient was found to have O2 sat of 70%, very tachypneic, tachycardic with heart rate in the 150s. She was given IV Lasix, nitro paste, morphine, and the patient was transferred to the ICU for BiPAP. In the ICU, the patient did end up settling down on the BiPAP; however , she could not be liberated from the BiPAP. Family was at the bedside. The patient was DNR/DNI and the family continued to want no intubation and to try to use aggressive pulmonary toileting diuresis and BiPAP to turn her around. The patient was unable to deliberated from the BiPAP and continued to clinically decline. A decision was made to transition the patient to comfort care. The patient was seen in consultation by palliative physician, Dr. Kincaid, who agreed the patient was not going to survive this hospitalization and the patient was started on a morphine drip. The family has been at the bedside. It took a little over 24 hours after the patient's BiPAP was removed where the patient did this morning at 10:40 a.m. I pronounced the patient , family was at the bedside. The patient had no respirations, no heartbeat, no pulses, and appeared to be mottled. Both the children, , brother, and friends were at the bedside. TIME SPENT: Approximately 90 minutes was spent on this case today. The certificate has been filled out and is on the chart. The family is arranging arrangements. This case was discussed with attending physician, Dr. Dubon and Dr. Jasso. DESIRE MORENO NP CC: Dr. Ellen Reynolds * [id number]/[facility] #: [id number]
[2016-04-04] MEDS ORDERED: Scopolamine PATCH Remove* 1 NOTE MISC PATCH OFF SCH (13:00)
== END 2016-04-02 10:40 | disposition expired | DRG 871 ==
LOC: ED 12:46 → MEDTELE 14:16 → OBSVTOIN 21:35 → ICU 03-31 09:52
PROVIDERS: ADMIT Internal Medicine; ATTEND Hospitalist
PROC: 5A09457 Assistance with Respiratory Ventilation, 24-96 Consecutive Hours, Continuous Positive Airway Pressure (ICD-10-PCS; principal; 2016-03-31)
DX: A41.9 Sepsis, unspecified organism (principal); G93.40 Encephalopathy, unspecified; J96.21 Acute and chronic respiratory failure with hypoxia; J81.1 Chronic pulmonary edema; I27.2 Other secondary pulmonary hypertension; I95.9 Hypotension, unspecified; G35 Multiple sclerosis; I48.2 Chronic atrial fibrillation; E27.40 Unspecified adrenocortical insufficiency; N39.0 Urinary tract infection, site not specified; E03.9 Hypothyroidism, unspecified; B95.62 Methicillin resistant Staphylococcus aureus infection as the cause of diseases classified elsewhere; Z66 Do not resuscitate; N31.9 Neuromuscular dysfunction of bladder, unspecified; G47.33 Obstructive sleep apnea (adult) (pediatric); E87.6 Hypokalemia; E83.42 Hypomagnesemia; R33.8 Other retention of urine; Z79.899 Other long term (current) drug therapy; Z99.3 Dependence on wheelchair; Z82.49 Family history of ischemic heart disease and other diseases of the circulatory system; Z82.3 Family history of stroke; Z79.01 Long term (current) use of anticoagulants
CPT/HCPCS: 36415; 36600; 70450; 71010; 80048; 80053; 80202; 80307; 80320; 80329; 81003; 81015; 82140; 82550; 82803; 83605; 83735; 83880; 84145; 84443; 84484; 85025; 87040; 87077; 87086; 87186; 93005; 93306; 94660; 95822; A9270-GY; G0480; J0282; J0744; J1160; J1200; J1720; J1940; J2060; J2270; J3370; J3480